=== PATIENT | male | born 1950 | race African-American/Black ===

== ENCOUNTER 2017-10-04 16:19 | Inpatient (IN) | payer MEDICARE ==
[~2017-10-04] VITALS: Ht 177.8 cm; Wt 70.9 kg
[~2017-10-04 16:19] MED LIST: ASPI325T PO; CIPR500T4 PO; HYDRA50 PO; NITR.4 SL; PROT40TA PO; SYMB160A INH; TAMS0.4C67 PO; TIOT18I INH
[2017-10-04 16:24] VITALS: BP 176/91; PULSE 105; RESP 14; TEMP 98.4; O2SAT 96
[2017-10-04] MEDS ORDERED: SODIUM CHLORIDE 0.9% FLUSH 10 ML FLUSH IVF PRN (17:45)
[2017-10-04 18:03] LABS: BASOPHIL % 0.7 % (0.0-2.0); EOSINOPHIL # 0.1 TH/MM3 (0-0.4); EOSINOPHIL % 1.8 % (0.0-4.0); HEMATOCRIT 31.2 % (39.0-51.0); HEMO FLAGS DIFF FINAL; LYMPH % 18.5 % (9.0-44.0); LYMPHOCYTE # 1.3 TH/MM3 (1.0-4.8); MEAN CELL VOLUME 88.2 FL (80.0-100.0); MEAN CORPUSCULAR HEMOGLOBIN 29.3 PG (27.0-34.0); MEAN CORPUSCULAR HGB CONC 33.2 % (32.0-36.0); MONO % 7.5 % (0.0-8.0); NEUT % 71.5 % (16.0-70.0); PLATELET COUNT 165 TH/MM3 (150-450); RED BLOOD COUNT 3.53 MIL/MM3 (4.50-5.90)
--- NOTE | 2017-10-04 18:05 | PD ---
HPI Chief Complaint: Abnormal Results Time Seen by Provider: 17:37 Travel History International Travel<30 days: No Contact w/Intl Traveler<30days: No Traveled to known affect area: No History of Present Illness HPI Patient is a 67-year-old male presents emergency department for evaluation of abnormal lab work. The patient states he has a routine checkup coming next week and had blood work drawn at the [facility] today, he states they couldn't get a hold of him so they sent the traffic control officer out to get him, the traffic control officer made mention that it could be his potassium that was off and they recommended he come to the emergency department. The patient has no complaints at this time , denies any chest pain shortness of breath abdominal pain nausea vomiting generalized weakness focalized weakness or fatigue. The patient thinks that it was his potassium that was off however he is unsure. He has no history of diabetes no history of kidney disorder. PFSH Past Medical History Atrial Fibrillation: Yes Autoimmune Disease: No Blood Disorders: No Anxiety: No Depression: No Cancer: No Cardiovascular Problems: Yes Diabetes: Yes Diminished Hearing: No Endocrine: No Gastrointestinal Disorders: Yes GERD: Yes Glaucoma: No Genitourinary: Yes ("PROSTATE PROBLEM") Hypertension: Yes Musculoskeletal: No Neurologic: No Psychiatric: No Respiratory: No Radiation Therapy: No Sickle Cell Disease: No Past Surgical History Other Surgery: Yes Social History Alcohol Use: No Tobacco Use: Yes (1 PPD FOR 30 YEARS) Substance Use: Yes (COCAINE daily ) Allergies-Medications (Allergen,Severity, Reaction): Coded Allergies: No Known Allergies (Verified Allergy, Unknown, 10/04/17) Reported Meds & Prescriptions Reported Meds & Active Scripts Active Reported [prostate med ] [Bp ] Review of Systems Except as stated in HPI: all other systems reviewed are Neg Physical Exam Narrative GENERAL: Well-developed well-nourished no obvious distress, quite pleasant. SKIN: Focused skin assessment warm/dry. HEAD: Atraumatic. Normocephalic. EYES: Pupils equal and round. No scleral icterus. No injection or drainage. ENT: No nasal bleeding or discharge. Mucous membranes pink and moist. NECK: Trachea midline. No JVD. CARDIOVASCULAR: Regular rate and rhythm. No murmur appreciated. 2+ bilateral equal pulses in all 4 extremity's. RESPIRATORY: No accessory muscle use. Clear to auscultation. Breath sounds equal bilaterally. GASTROINTESTINAL: Abdomen soft, non-tender, nondistended. Hepatic and splenic margins not palpable. MUSCULOSKELETAL: No obvious deformities. No clubbing. No cyanosis. No edema. NEUROLOGICAL: Awake and alert. No obvious cranial nerve deficits. Motor grossly within normal limits. Normal speech. PSYCHIATRIC: Appropriate mood and affect; insight and judgment normal. Data Data Last Documented VS Vital Signs Date Time Temp Pulse Resp B/P (MAP) Pulse Ox O2 Delivery O2 Flow Rate FiO2 10/04/17 21:47 73 17 173/87 (115) 100 Room Air 10/04/17 16:24 98.4 Orders Orders Electrocardiogram (10/04/17 17:36) Complete Blood Count With Diff (10/04/17 17:36) Comprehensive Metabolic Panel (10/04/17 17:36) Magnesium (Mg) (10/04/17 17:36) Prothrombin Time / Inr (Pt) (10/04/17 17:36) Act Partial Throm Time (Ptt) (10/04/17 17:36) Troponin I (10/04/17 17:36) Ecg Monitoring (10/04/17 17:36) Iv Access Insert/Monitor (10/04/17 17:36) Oximetry (10/04/17 17:36) Oxygen Administration (10/04/17 17:36) Sodium Chloride 0.9% Flush (Ns Flush) (10/04/17 17:45) Sodium Polysty Sulfate Liq (Kayexalate L (10/04/17 20:45) Insulin Human Regular Inj (Novolin R Inj (10/04/17 21:30) Dextrose 50% In Sacha (Syr) Inj (D50w (Syr (10/04/17 21:30) Admit Order (Ed Use Only) (10/04/17 22:43) Urinalysis - C+S If Indicated (10/04/17 22:42) Drug Screen, Random Urine (10/04/17 22:42) Calcium Gluconate Inj (Calcium Gluconate (10/04/17 22:45) Consult Nephrology (10/04/17 ) Admit To Inpatient (10/04/17 ) Vital Signs (Adult) Q4H (10/04/17 22:42) Activity Oob Ad Sarah (10/04/17 22:42) Extruder / Telemetry .CONTINUOUS (10/04/17 22:42) Intake + Output CAYDEN.QSHIFT (10/04/17 22:42) Diet Regular Basic (10/05/17 Breakfast) Sodium Chlor 0.9% 1000 Ml Inj (Ns 1000 M (10/04/17 22:42) Sodium Chloride 0.9% Flush (Ns Flush) (10/04/17 22:45) Sodium Chloride 0.9% Flush (Ns Flush) (10/05/17 09:00) Ondansetron Inj (Zofran Inj) (10/04/17 22:45) Comprehensive Metabolic Panel (10/05/17 06:00) Complete Blood Count With Diff (10/05/17 06:00) Troponin I (10/05/17 06:00) Heparin Inj (Heparin Inj) (10/05/17 09:00) Acetaminophen (Tylenol) (10/04/17 22:45) Acetamin-Hydrocod 325-5 Mg (Garrison 5-325 (10/04/17 22:45) Morphine Inj (Morphine Inj) (10/04/17 22:45) Docusate Sodium-Senna (Mary Beth-Colace) (10/05/17 09:00) Magnesium Hydroxide Liq (Milk Of Magnesi (10/04/17 22:45) Sennosides (Senokot) (10/04/17 22:45) Bisacodyl Supp (Dulcolax Supp) (10/04/17 22:45) Lactulose Liq (Lactulose Liq) (10/04/17 22:45) Inpatient Certification (10/04/17 ) Labs Laboratory Tests Test 10/04/17 17:30 10/04/17 19:00 White Blood Count 7.0 TH/MM3 Red Blood Count 3.53 MIL/MM3 Hemoglobin 10.3 GM/DL Hematocrit 31.2 % Mean Corpuscular Volume 88.2 FL Mean Corpuscular Hemoglobin 29.3 PG Mean Corpuscular Hemoglobin Concent 33.2 % Red Cell Distribution Width 16.0 % Platelet Count 165 TH/MM3 Mean Platelet Volume 9.0 FL Neutrophils (%) (Auto) 71.5 % Lymphocytes (%) (Auto) 18.5 % Monocytes (%) (Auto) 7.5 % Eosinophils (%) (Auto) 1.8 % Basophils (%) (Auto) 0.7 % Neutrophils # (Auto) 5.0 TH/MM3 Lymphocytes # (Auto) 1.3 TH/MM3 Monocytes # (Auto) 0.5 TH/MM3 Eosinophils # (Auto) 0.1 TH/MM3 Basophils # (Auto) 0.0 TH/MM3 CBC Comment DIFF FINAL Differential Comment Prothrombin Time 11.4 SEC Prothromb Time International Ratio 1.1 RATIO Activated Partial Thromboplast Time 28.6 SEC Blood Urea Nitrogen 45 MG/DL Creatinine 4.05 MG/DL Random Glucose 133 MG/DL Total Protein 6.9 GM/DL Albumin 3.2 GM/DL Calcium Level 8.2 MG/DL Magnesium Level 1.8 MG/DL Alkaline Phosphatase 76 U/L Aspartate Amino Transf (AST/SGOT) 29 U/L Alanine Aminotransferase (ALT/SGPT) 40 U/L Total Bilirubin 0.4 MG/DL Sodium Level 140 MEQ/L Potassium Level 6.3 MEQ/L Chloride Level 114 MEQ/L Carbon Dioxide Level 19.1 MEQ/L Anion Gap 7 MEQ/L Estimat Glomerular Filtration Rate 18 ML/MIN Troponin I 0.09 NG/ML [facility] Medical Decision Making Medical Screen Exam Complete: Yes Emergency Medical Condition: Yes Differential Diagnosis Hyperkalemia, acute kidney injury, electro-light abnormality, ACS unlikely, AMI unlikely. Narrative Course Patient roomed in emergency department, appears well and has no physical complaints, labs ordered, initial sample hemolyzed, discussed with Dr. Hu at 1930 at the end of my shift who will assume care and disposition the patient properly based on chemistries. Condition: Stable Jose D Brown MD Oct 04, 2017 18:05
[2017-10-04 18:08] LABS: APTT (PATIENT) 28.6 SEC (24.3-30.1); INTERNATIONAL NORMALIZED RATIO 1.1 RATIO; PROTHROMBIN TIME - PATIENT 11.4 SEC (9.8-11.6)
[2017-10-04] MEDS ORDERED: BP (18:43)
[2017-10-04] MEDS ORDERED: prostate med (18:43)
[2017-10-04 19:00] VITALS: BP 152/83; PULSE 72; RESP 22; O2SAT 98
[2017-10-04 19:46] LABS: ANION GAP 7 MEQ/L (5-15); AST (GOT) 29 U/L (15-37); BICARBONATE 19.1 MEQ/L (21.0-32.0); BLOOD UREA NITROGEN 45 MG/DL (7-18); CHLORIDE 114 MEQ/L (98-107); GLOMERULAR FILTRATION RATE 18 ML/MIN (>89); MAGNESIUM 1.8 MG/DL (1.5-2.5); SODIUM (NA) 140 MEQ/L (136-145)
[2017-10-04 19:47] LABS: ALT (GPT) 40 U/L (12-78)
[2017-10-04 19:50] LABS: POTASSIUM 6.3 MEQ/L (3.5-5.1)
[2017-10-04 19:51] LABS: ALKALINE PHOSPHATASE 76 U/L (45-117); TOTAL BILIRUBIN ADULT 0.4 MG/DL (0.2-1.0)
[2017-10-04] MEDS ORDERED: SODIUM POLYSTYRENE SULFONATE SUSP 15 GM/60 ML CUP PO ONE (20:45)
--- NOTE | 2017-10-04 21:25 | EKG ---
Date Performed: 10/04/2017 Time Performed: 18:40:07 PTAGE: 67 years EKG: Sinus rhythm INDETERMINATE AXIS LOW QRS VOLTAGE IN EXTREMITY LEADS POOR R WAVE PROGRESSION NONSPECIFIC INTRAVENTR ICULAR CONDUCTION DELAY ABNORMAL ECG PREVIOUS TRACING : 07/30/2015 05.50 No significant change from previous tracing noted. DOCTOR: Aroldo Gonzalez Interpretating Date/Time 10/04/2017 21:24:22
[2017-10-04] MEDS ORDERED: INSULIN HUMAN REGULAR 1,000 UNITS/10 ML VIAL IV PUSH ONE (21:30)
[2017-10-04] MEDS ORDERED: DEXTROSE 50% IN WATER 50 ML SYRINGE IV PUSH ONE (21:30)
[2017-10-04 21:47] VITALS: BP 173/87; PULSE 73; RESP 17; O2SAT 100
[2017-10-04] MEDS ORDERED: SODIUM CHLORIDE 0.9% FLUSH 10 ML FLUSH IV FLUSH PRN (22:45)
[2017-10-04] MEDS ORDERED: MAGNESIUM HYDROXIDE SUSP 30 ML CUP PO PRN (22:45)
[2017-10-04] MEDS ORDERED: SENNOSIDES 8.6 MG TAB PO PRN (22:45)
[2017-10-04] MEDS ORDERED: BISACODYL 10 MG SUPP RECTAL PRN (22:45)
[2017-10-04] MEDS ORDERED: CALCIUM GLUCONATE 10% 1 GM/10 ML VIAL IV PUSH ONE (22:45)
[2017-10-04] MEDS ORDERED: ONDANSETRON HCL 4 MG/2 ML VIAL IVP PRN (22:45)
[2017-10-04] MEDS ORDERED: ACETAMINOPHEN/HYDROcodone 325 MG/5 MG TAB PO PRN (22:45)
[2017-10-04] MEDS ORDERED: LACTULOSE SYRUP 20 GM/30 ML CUP PO PRN (22:45)
[2017-10-04] MEDS ORDERED: MORPHINE SULFATE 4 MG/ML INJ IV PUSH PRN (22:45)
[2017-10-04] MEDS ORDERED: ACETAMINOPHEN 325 MG TAB PO PRN (22:45)
--- NOTE | 2017-10-04 22:46 | HHI.HP ---
[facility] Admission Diagnosis hyperkalemia Diagnoses: (1) CRISTINA (acute kidney injury) Diagnosis: Principal (2) Hyperkalemia Diagnosis: Principal (3) Elevated troponin Diagnosis: Principal (4) HTN (hypertension) Diagnosis: Principal (5) Cocaine abuse Diagnosis: Principal (6) Tobacco abuse Diagnosis: Principal Travel History International Travel<30 Days: No Contact w/Intl Traveler <30 Da: No Traveled to Known Affected Are: No History of Present Illness This is a 67-year-old male with a PMH of HTN, CKD, Tobacco Abuse and Cocaine Abuse who was sent to the ER from the [facility] secondary to abnormal lab work. Pt states he had routine lab work done at the [facility] today and was informed he needed to come to the ER for elevated K+. Pt without complaints at this time. Denies fever, chills, nausea, vomiting, diarrhea or chest pain. On arrival, BP 152/83 , HR 72, O2 sat 98% on RA, Afebrile. CBC is essentially unremarkable. Creatinine 4.05, previously 1.92 on 07/30/15. K+ 6.3. S/p Insulin/D50/ Kayexalate in ER. Trop 0.09. CXR w/ minimal bibasilar subsegmental atelectasis. Review of Systems Except as stated in HPI: all other systems reviewed are Neg ROS: 14 point review of systems otherwise negative. Past Family Social History Past Medical History PMH: HTN, CKD, Tobacco Abuse and Cocaine Abuse Past Surgical History PAST SURGICAL HISTORY: Left Leg Surgery Allergies: Coded Allergies: No Known Allergies (Verified Allergy, Unknown, 10/04/17) Family History PAST FAMILY HISTORY: Reviewed. No h/o DM or CAD Social History PAST SOCIAL HISTORY: Negative for alcohol. Smokes 1ppd. Cocaine daily. Physical Exam Vital Signs Vital Signs Date Time Temp Pulse Resp B/P (MAP) Pulse Ox O2 Delivery O2 Flow Rate FiO2 10/04/17 21:47 73 17 173/87 (115) 100 Room Air 10/04/17 19:00 72 22 152/83 (106) 98 Room Air 10/04/17 18:42 (119) Room Air 10/04/17 18:41 97 Room Air 10/04/17 16:24 98.4 105 14 176/91 (119) 96 Physical Exam PE: GENERAL: Middle-aged black male in no acute distress. HEENT: PERRLA, EOMI. No scleral icterus or conjunctival pallor. No lid lag or facial droop. CARDIOVASCULAR: Regular rate and rhythm. No obvious murmurs to auscultation. No chest tenderness to palpation. RESPIRATORY: No obvious rhonchi or wheezing. Clear to auscultation. Breath sounds equal bilaterally. GASTROINTESTINAL: Abdomen soft, non-tender, nondistended. BS normal. MUSCULOSKELETAL: Extremities without clubbing, cyanosis, or edema. No obvious deformities. NEUROLOGICAL: Awake, alert and oriented x4. No focal neurologic deficits. Moving both upper and lower extremities spontaneously. Laboratory Laboratory Tests Test 10/04/17 17:30 10/04/17 19:00 White Blood Count 7.0 Red Blood Count 3.53 Hemoglobin 10.3 Hematocrit 31.2 Mean Corpuscular Volume 88.2 Mean Corpuscular Hemoglobin 29.3 Mean Corpuscular Hemoglobin Concent 33.2 Red Cell Distribution Width 16.0 Platelet Count 165 Mean Platelet Volume 9.0 Neutrophils (%) (Auto) 71.5 Lymphocytes (%) (Auto) 18.5 Monocytes (%) (Auto) 7.5 Eosinophils (%) (Auto) 1.8 Basophils (%) (Auto) 0.7 Neutrophils # (Auto) 5.0 Lymphocytes # (Auto) 1.3 Monocytes # (Auto) 0.5 Eosinophils # (Auto) 0.1 Basophils # (Auto) 0.0 CBC Comment DIFF FINAL Differential Comment Prothrombin Time 11.4 Prothromb Time International Ratio 1.1 Activated Partial Thromboplast Time 28.6 Blood Urea Nitrogen 45 Creatinine 4.05 Random Glucose 133 Total Protein 6.9 Albumin 3.2 Calcium Level 8.2 Magnesium Level 1.8 Alkaline Phosphatase 76 Aspartate Amino Transf (AST/SGOT) 29 Alanine Aminotransferase (ALT/SGPT) 40 Total Bilirubin 0.4 Sodium Level 140 Potassium Level 6.3 Chloride Level 114 Carbon Dioxide Level 19.1 Anion Gap 7 Estimat Glomerular Filtration Rate 18 Troponin I 0.09 Result Diagram: 10/04/17 1730 10/04/17 1900 Caprini VTE Risk Assessment Caprini VTE Risk Assessment: Mod/High Risk (score >= 2) Caprini Risk Assessment Model Point Value = 1 Point Value = 2 Point Value = 3 Point Value = 5 Age 41-60 Minor surgery BMI > 25 kg/m2 Swollen legs Varicose veins or History of unexplained or recurrent spontaneous Oral contraceptives or hormone replacement Sepsis (< 1 month) Serious lung disease, including pneumonia (< 1 month) Abnormal pulmonary function Acute myocardial infarction Congestive heart failure (< 1 month) History of inflammatory bowel disease Medical patient at bed rest Age 61-74 Arthroscopic surgery Major open surgery (> 45 min) Laparoscopic surgery (> 45 min) Malignancy Confined to bed (> 72 hours) Immobilizing plaster cast Central venous access Age >= 75 History of VTE Family history of VTE Factor V Leiden Prothrombin [id number] Lupus anticoagulant Anticardiolipin antibodies Elevated serum homocysteine Heparin-induced thrombocytopenia Other congenital or acquired thrombophilia Stroke (< 1 month) Elective arthroplasty Hip, pelvis, or leg fracture Acute spinal cord injury (< 1 month) Prophylaxis Regimen Total Risk Factor Score Risk Level Prophylaxis Regimen 0-1 Low Early ambulation 2 Moderate Order ONE of the following: *Sequential Compression Device (SCD) *Heparin 5000 units SQ BID 3-4 Higher Order ONE of the following medications: *Heparin 5000 units SQ TID *Enoxaparin/Lovenox 40 mg SQ daily (WT < 150 kg, CrCl > 30 mL/min) *Enoxaparin/Lovenox 30 mg SQ daily (WT < 150 kg, CrCl > 10-29 mL/min) *Enoxaparin/Lovenox 30 mg SQ BID (WT < 150 kg, CrCl > 30 mL/min) AND/OR *Sequential Compression Device (SCD) 5 or more Highest Order ONE of the following medications: *Heparin 5000 units SQ TID (Preferred with Epidurals) *Enoxaparin/Lovenox 40 mg SQ daily (WT < 150 kg, CrCl > 30 mL/min) *Enoxaparin/Lovenox 30 mg SQ daily (WT < 150 kg, CrCl > 10-29 mL/min) *Enoxaparin/Lovenox 30 mg SQ BID (WT < 150 kg, CrCl > 30 mL/min) AND *Sequential Compression Device (SCD) Assessment and Plan Problem List: (1) CRISTINA (acute kidney injury) ICD Code: N17.9 - Acute kidney failure, unspecified (2) Hyperkalemia ICD Code: E87.5 - Hyperkalemia (3) Elevated troponin ICD Code: R74.8 - Abnormal levels of other serum enzymes (4) HTN (hypertension) ICD Code: I10 - Essential (primary) hypertension (5) Cocaine abuse ICD Code: F14.10 - Cocaine abuse, uncomplicated (6) Tobacco abuse ICD Code: Z72.0 - Tobacco use Assessment and Plan A/P: 1. CRISTINA: Acute on Chronic. Creatinine 4.05, previously 1.92 on 07/30/15, likely related to cocaine abuse/uncontrolled HTN. IVF for hydration, check U/a , Urine Drug Screen, repeat labs in am, Check Renal US, Consult Nephrology for further recommendations. 2. Hyperkalemia: Acute. K+ 6.3. No EKG changes. S/p Insulin/D50/Kayexalate in ER, add Calcium. Repeat K+. Telemetry. 3. Elevated Trop: Trop 0.09, no c/o chest pain/SOB. ASA, Statin, hold B- marycarmen, check serial cardiac enzymes for trend. Cardiology consult as needed. 4. HTN: Uncontrolled. BP 150-170's while in ER, start antihypertensives, monitor BP. 5. Tobacco Abuse: Pt counselled. Ativan prn if needed, no NicoDerm to avoid vasoconstriction. 6. Cocaine Abuse: Ongoing. Pt counselled. Ativan/Morphine prn. 7. DVT Prophylaxis: Heparin 8. Social work for d/c planning as needed. 9. Case discussed w/ ER physician at length. Physician Certification 2 Midnight Certification Type: Admission for Inpatient Services Order for Inpatient Services The services are ordered in accordance with Medicare regulations or non- Medicare payer requirements, as applicable. In the case of services not specified as inpatient-only, they are appropriately provided as inpatient services in accordance with the 2-midnight benchmark. Estimated LOS (days): 2 days is the estimated time the patient will need to remain in the hospital, assuming treatment plan goals are met and no additional complications. Post-Hospital Plan: Not yet determined Darlene Wagner MD Oct 04, 2017 22:46
[2017-10-04] MEDS ORDERED: SODIUM CHLOR 0.9% 1000 ML INJ 1,000 ML IV ONE (23:00)
[2017-10-04] MEDS: SODIUM CHLOR 0.9% 1000 ML INJ 1,000 ML IV SCH (23:58)
[2017-10-05] VITALS (10 sets, daily range): BP systolic 126–180; BP diastolic 69–88; PULSE 62–89; RESP 18–20; TEMP 96.9–99; O2SAT 96–99
[2017-10-05] MEDS ORDERED: DEXTROSE 50% IN WATER 50 ML SYRINGE IV PUSH ONE
[2017-10-05] MEDS: NIFEdipine 30 MG SUSTAINED RELEASE TAB PO SCH ×3 (03:07→20:25)
[2017-10-05] MEDS: SODIUM CHLORIDE 0.9% FLUSH 10 ML FLUSH IV FLUSH SCH ×2 (08:57→20:25)
[2017-10-05] MEDS: DOCUSATE SODIUM 50 MG/SENNA 8.6 MG TAB PO SCH ×2 (08:57→20:24)
[2017-10-05] MEDS: HEPARIN SODIUM - SQ 10,000 UNITS/ML VIAL SQ SCH ×2 (08:58→20:26)
[2017-10-05] MEDS ORDERED: NIFEdipine 30 MG SUSTAINED RELEASE TAB PO SCH (09:00)
--- NOTE | 2017-10-05 09:03 | RADRPT ---
EXAM DATE/TIME: 10/05/2017 07:51 [facility] COMPARISON: US KIDNEY/RENAL/BLADDER, December 21, 2014, 17:00. INDICATIONS : Increased BUN/Creatnine. MEDICAL HISTORY : Hypertension. Gastroesophageal reflux disease. Glasses. Atrial fibrillation. Prostate problems. SURGICAL HISTORY : Left leg surgery. ENCOUNTER: Subsequent ACUITY: 1 day PAIN SCORE: 2/10 LOCATION: Bilateral flank MEASUREMENTS: RIGHT KIDNEY: 8.9 x 4.1 x 4.8 cm LEFT KIDNEY: 9.3 x 4.0 x 5.1 cm FINDINGS: Severe hydronephrosis is again noted bilaterally. The kidneys demonstrate increased echogenicity sugg esting medical renal disease. No focal solid renal mass or stone is noted. The urinary bladder is dis tended and demonstrates wall thickening and trabeculation as well as multiple diverticula. Debris is noted within the bladder. Bilateral pleural effusions are noted. CONCLUSION: 1. Severe bilateral hydronephrosis. 2. Distended, thick-walled, trabeculated urinary bladder with multiple diverticula and debris. 3. Bilateral pleural effusions. 4. Echogenic kidneys suggesting medical renal disease. Jose D Parmar MD on October 05, 2017 at 8:57 Board Certified Radiologist. This report was verified electronically.
[2017-10-05 11:07] LABS: AUTOMATED NEUTROPHIL # 5.1 TH/MM3 (1.8-7.7); BASOPHIL % 0.4 % (0.0-2.0); EOSINOPHIL # 0.3 TH/MM3 (0-0.4); EOSINOPHIL % 3.5 % (0.0-4.0); HEMATOCRIT 31.5 % (39.0-51.0); HEMO FLAGS DIFF FINAL; LYMPH % 17.3 % (9.0-44.0); LYMPHOCYTE # 1.3 TH/MM3 (1.0-4.8); MEAN CELL VOLUME 87.8 FL (80.0-100.0); MEAN CORPUSCULAR HEMOGLOBIN 28.8 PG (27.0-34.0); MEAN CORPUSCULAR HGB CONC 32.8 % (32.0-36.0); MONO % 8.4 % (0.0-8.0); NEUT % 70.4 % (16.0-70.0); PLATELET COUNT 163 TH/MM3 (150-450); RED BLOOD COUNT 3.59 MIL/MM3 (4.50-5.90); RED CELL DISTRIBUTION WIDTH 16.2 % (11.6-17.2); WHITE BLOOD COUNT 7.3 TH/MM3 (4.0-11.0)
[2017-10-05 11:35] LABS: ALKALINE PHOSPHATASE 96 U/L (45-117); ALT (GPT) 44 U/L (12-78); ANION GAP 4 MEQ/L (5-15); AST (GOT) 30 U/L (15-37); BLOOD UREA NITROGEN 44 MG/DL (7-18); CHLORIDE 116 MEQ/L (98-107); GLOMERULAR FILTRATION RATE 19 ML/MIN (>89); POTASSIUM 5.2 MEQ/L (3.5-5.1); SODIUM (NA) 142 MEQ/L (136-145); TOTAL BILIRUBIN ADULT 0.2 MG/DL (0.2-1.0)
--- NOTE | 2017-10-05 13:40 | MB ---
cc: CHRISTIANO MONZON MD DATE OF CONSULTATION: 10/05/2017. REASON FOR CONSULTATION: Chronic kidney disease and hyperkalemia. HISTORY OF PRESENT ILLNESS: This is a very pleasant 67-year-old male with past medical history of hypertension and chronic kidney disease [facility] was called [facility] to go to the hospital because of hypertension. I was called to see the patient because of hyperkalemia and elevated creatinine. The patient has a known history of chronic kidney disease and his creatinine was 1.8 to 1.9 in July of 2015. At that time also he had acute kidney injury. The patient was seen by nephrology in the [place] in [place] and according to the patient he was told that he has significant renal disease. He was seen by urology in December of 2014 for bladder outlet obstruction. The patient denies any nausea or vomiting. He has mild shortness of breath on exertion. There is no history of diarrhea. He is not taking any nonsteroidal anti-inflammatory drugs. No dysuria, hematuria or difficulty passing urine. PAST MEDICAL HISTORY: 1. Hypertension. 2. Chronic kidney disease. PAST SURGICAL HISTORY: Left leg surgery. REVIEW OF SYSTEMS: There is no history of fever. No sore throat. No headache, dizziness or blurring of vision. He has shortness of breath on exertion. There is no chest pain, mild cough. No nausea or vomiting. No abdominal pain. No history of diarrhea. Appetite is normal. No dysuria, hematuria or difficulty passing. Not taking any nonsteroidal anti-inflammatory drugs. SOCIAL HISTORY: The patient is single, lives with her friend and has not been drinking alcohol every day but has smoked one pack per day and occasionally takes cocaine. FAMILY HISTORY: Family history was positive for renal disease from the mother's side. Her aunt was on dialysis, her mother's sister. ALLERGIES: NO KNOWN DRUG ALLERGIES. MEDICATIONS: Currently he is on: 1. Normal saline at 100 an hour. 2. Nifedipine 30 mL once a day. 3. Mary Beth-Colace one tablet twice a day. 4. Heparin subcutaneous. 5. [place] as needed. PHYSICAL EXAMINATION: GENERAL: On examination, the patient is awake and alert and he is not in acute distress. VITAL SIGNS: His last blood pressure was 161/79, temperature 98.3, oxygen saturation is 98% to 99%. HEAD, EYES, EARS, NOSE, THROAT: The pupils are equal. Nonicteric sclerae. Conjunctivae are normal. NECK: The neck is supple. JVD is not elevated. LUNGS: The patient has bilateral good air entry with occasional wheezing. HEART: S1 and S2 regular rhythm. ABDOMEN: Abdomen soft and lax. There is no tenderness. Bowel sounds positive. EXTREMITIES: There is no pedal edema. INVESTIGATIONS: White blood cell count is 7.3, hemoglobin 10.3, platelet count 163,000. Neutrophils 70.4. Sodium 142, potassium 5.2, chloride 116, bicarbonate 22, BUN 44, creatinine 3.7. AST 30, ALT 44. Troponin I is 0.1. Albumin is 3.1. INR is 1.1. Urinalysis showing protein of 30 and this was done in July of 2015. At that time he also had KARSON positive. RADIOLOGICAL STUDIES: The patient had an ultrasound of the kidneys done this morning which shows right kidney imaged at 0.9 and the left kidney at 9.3. Severe bilateral hydronephrosis. Distended urinary bladder. Bilateral pleural effusions. ASSESSMENT AND PLAN: 1. Chronic kidney disease with acute kidney injury 2. Hyperkalemia. 3. Hypertension. 4. Mild anemia. The patient has very high BUN and creatinine and has smaller kidney and does not have too much proteinuria. 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 Now there is a acute worsening which could be related to either prerenal or the possibility of bladder neck obstruction and bilateral hydronephrosis. 1. I will ask for the urology consultation. 2. Get the Johnson catheter. 3. Send serology again as he has a history of KARSON positive. The potassium is better. There is no acute urgent need for dialysis expecting more improvement in the renal function in the next few days. I will also check the phosphorus and CPK. Thank you for the consultation and I will follow the patient while he is in the hospital. MD PRISCILA Duffy/JENAE /12:14 PM /1:29 PM
--- NOTE | 2017-10-05 13:56 | HHI.PR ---
Subjective Remarks Patient reports he is feeling okay. No shortness of breath or chest pain. Objective Vitals Vital Signs Date Time Temp Pulse Resp B/P (MAP) Pulse Ox O2 Delivery O2 Flow Rate FiO2 10/05/17 08:00 98.3 78 18 161/79 (106) 99 10/05/17 08:00 98.1 75 18 162/77 (105) 96 10/05/17 04:00 62 10/05/17 04:00 98.2 63 20 172/88 (116) 98 10/05/17 02:17 76 10/05/17 00:30 96.9 71 20 180/88 (118) 97 10/05/17 00:13 10/05/17 00:03 71 18 165/77 (106) 98 Room Air 10/04/17 21:47 73 17 173/87 (115) 100 Room Air 10/04/17 19:00 72 22 152/83 (106) 98 Room Air 10/04/17 18:42 (119) Room Air 10/04/17 18:41 97 Room Air 10/04/17 16:24 98.4 105 14 176/91 (119) 96 I/O 10/04/17 10/04/17 10/04/17 10/05/17 10/05/17 10/05/17 07:00 15:00 23:00 07:00 15:00 23:00 Intake Total 1118 ml Output Total 125 ml Balance 993 ml Intake Oral 120 ml IV Total 998 ml Output Urine Total 125 ml # Bowel Movements 0 Result Diagram: 10/05/17 1018 10/05/17 1018 Objective Remarks GENERAL: This is a well-nourished, well-developed patient, in no apparent distress. CARDIOVASCULAR: Normal rate and regular rhythm without murmurs, gallops, or rubs. RESPIRATORY: Good respiratory efforts. Breath sounds equal and clear to auscultation bilaterally. GASTROINTESTINAL: Abdomen soft, non-tender, non-distended. Normal active bowel sounds MUSCULOSKELETAL: Extremities without cyanosis, or edema. NEURO: Alert & Oriented x4 to person, place, time, situation. Moves all ext x4 PSYCH: Appropriate mood and affect. A/P Problem List: (1) CRISTINA (acute kidney injury) ICD Code: N17.9 - Acute kidney failure, unspecified (2) Hyperkalemia ICD Code: E87.5 - Hyperkalemia (3) Elevated troponin ICD Code: R74.8 - Abnormal levels of other serum enzymes (4) HTN (hypertension) ICD Code: I10 - Essential (primary) hypertension (5) Cocaine abuse ICD Code: F14.10 - Cocaine abuse, uncomplicated (6) Tobacco abuse ICD Code: Z72.0 - Tobacco use Assessment and Plan 67-year-old male with: 1. CRISTINA: Acute on Chronic. Creatinine 4.05 on presentation, previously 1.92 on 07/30/15, likely related to cocaine abuse/uncontrolled hypertension -Appreciate nephrology following. Continue to monitor closely. Slightly improved today. 2. Hyperkalemia: Acute. K+ 6.3. Improving. Down to 5.2. No EKG changes. S /p Insulin/D50/Kayexalate in ER, add Calcium. Repeat K+. Telemetry. 3. Elevated Trop: Troponin flat.. ASA, Statin. 4. HTN: Uncontrolled. Patient started on Procardia. 5. Tobacco Abuse: Pt counselled. Ativan prn if needed, no NicoDerm to avoid vasoconstriction. 6. Cocaine Abuse: Ongoing. Pt counselled. Ativan/Morphine prn. 7. DVT Prophylaxis: Heparin Imelda Meraz MD Oct 05, 2017 13:56
[2017-10-05 16:27] LABS: BLOOD, URINE NEG (NEG); COMMENT (UR) CULT NOT INDICATED; CULTURE IF INDICATED CULT NOT INDICATED; GLUCOSE,URINE NEG (NEG); KETONE, URINE NEG (NEG); NITRITE,URINE NEG (NEG); SQUAMOUS EPITHELIAL CELL URINE <1 /hpf (0-5); URINE COLOR LIGHT-YELLOW (YELLW/STRAW)
[2017-10-05] MEDS: TAMSULOSIN HCL 0.4 MG CAP PO SCH (16:32)
[2017-10-05] MEDS: SODIUM CHLOR 0.9% 1000 ML INJ 1,000 ML IV SCH (20:25)
[2017-10-06] VITALS: BP 152/70; PULSE 82; RESP 18; TEMP 98.9; O2SAT 94
[2017-10-06 03:49] VITALS: PULSE 81
[2017-10-06 04:00] VITALS: BP 152/75; PULSE 86; RESP 18; TEMP 98.4; O2SAT 96
[2017-10-06] MEDS: SODIUM CHLOR 0.9% 1000 ML INJ 1,000 ML IV SCH (05:54)
[2017-10-06 08:00] VITALS: PULSE 76
[2017-10-06] MEDS: TAMSULOSIN HCL 0.4 MG CAP PO SCH (09:01)
[2017-10-06] MEDS: NIFEdipine 30 MG SUSTAINED RELEASE TAB PO SCH (09:01)
[2017-10-06] MEDS: HEPARIN SODIUM - SQ 10,000 UNITS/ML VIAL SQ SCH (09:01)
[2017-10-06] MEDS: DOCUSATE SODIUM 50 MG/SENNA 8.6 MG TAB PO SCH (09:01)
[2017-10-06] MEDS: SODIUM CHLORIDE 0.9% FLUSH 10 ML FLUSH IV FLUSH SCH (09:02)
[2017-10-06 09:07] VITALS: BP 164/106; PULSE 73; RESP 20; TEMP 97.3; O2SAT 96
[2017-10-06 09:31] LABS: HEMATOCRIT 30.6 % (39.0-51.0); MEAN CELL VOLUME 87.3 FL (80.0-100.0); MEAN CORPUSCULAR HEMOGLOBIN 28.2 PG (27.0-34.0); MEAN CORPUSCULAR HGB CONC 32.3 % (32.0-36.0); PLATELET COUNT 155 TH/MM3 (150-450); RED BLOOD COUNT 3.51 MIL/MM3 (4.50-5.90); RED CELL DISTRIBUTION WIDTH 16.1 % (11.6-17.2); REVIEW FLAG FINAL; WHITE BLOOD COUNT 6.4 TH/MM3 (4.0-11.0)
[2017-10-06 09:53] LABS: BICARBONATE 16.9 MEQ/L (21.0-32.0); POTASSIUM 4.9 MEQ/L (3.5-5.1)
--- NOTE | 2017-10-06 09:55 | PD.CONS ---
[facility] Service Urology Consult Requested By Dr. Gimenez Primary Care Physician [facility] Diagnosis: (1) CRISTINA (acute kidney injury) ICD Code: N17.9 - Acute kidney failure, unspecified (2) Hyperkalemia ICD Code: E87.5 - Hyperkalemia (3) Elevated troponin ICD Code: R74.8 - Abnormal levels of other serum enzymes (4) HTN (hypertension) ICD Code: I10 - Essential (primary) hypertension (5) Cocaine abuse ICD Code: F14.10 - Cocaine abuse, uncomplicated (6) Tobacco abuse ICD Code: Z72.0 - Tobacco use History of Present Illness 67-year-old gentleman who was recently admitted for abnormal blood work. Patient is treated over at the [facility] and his physicians include a urologist. Patient was noted to have elevation the serum potassium as well as creatinine elevation of 4.05. The serum creatinine was previously 1.92 back in July 2015. Imaging studies included a renal ultrasound that demonstrated severe bilateral hydronephrosis, a distended, thickened urinary bladder with multiple diverticula and trabeculations as well as echogenic kidneys consistent with medical renal disease. A Johnson catheter was subsequently placed and the patient has had a significant amount of urine output and some improvement in his serum creatinine. A urology consult was placed for further recommendations. Interestingly, the patient denied any symptoms of flank pain or suprapubic pain. Patient denied fevers or shaking chills. He denies gross hematuria. Review of Systems Constitutional: DENIES: Fever, Chills Cardiovascular: DENIES: Chest pain Gastrointestinal: DENIES: Abdominal pain Genitourinary: DENIES: Hematuria, Dysuria Musculoskeletal: DENIES: Back pain Except as stated in HPI: all other systems reviewed are Neg Past Family Social History Past Medical History Chronic kidney disease Hypertension Past Surgical History Status post surgery to the left lower extremity Reported Medications Refer to EMR Allergies: Coded Allergies: No Known Allergies (Verified Allergy, Unknown, 10/04/17) Active Ordered Medications Refer to EMR Family History Reviewed and noncontributory Social History Smoker one pack per day Denies alcohol usage Uses cocaine on a daily basis Physical Exam Vital Signs Date Time Temp Pulse Resp B/P (MAP) Pulse Ox O2 Delivery O2 Flow Rate FiO2 10/06/17 09:07 97.3 73 20 164/106 (125) 96 10/06/17 04:00 98.4 86 18 152/75 (100) 96 10/06/17 03:49 81 10/06/17 00:00 98.9 82 18 152/70 (97) 94 10/05/17 23:40 81 10/05/17 20:00 99.0 89 18 136/69 (91) 96 10/05/17 19:54 87 10/05/17 16:00 97.8 81 18 126/77 (93) 99 10/05/17 12:00 97.8 81 18 162/77 (105) 96 Physical Exam GENERAL: This is a well-nourished, well-developed patient, in no apparent distress. SKIN: No rashes, ecchymoses or lesions. Cool and dry. HEAD: Atraumatic. Normocephalic. No temporal or scalp tenderness. EYES: Pupils equal round and reactive. Extraocular motions intact. No scleral icterus. No injection or drainage. ENT: Nose without bleeding, purulent drainage or septal hematoma. Throat without erythema, tonsillar hypertrophy or exudate. Uvula midline. Airway patent. NECK: Trachea midline. No JVD or lymphadenopathy. Supple, nontender, no meningeal signs. GASTROINTESTINAL: Abdomen soft, non-tender, nondistended. No hepato-splenomegaly , or palpable masses. No guarding. GENITOURINARY: No CVA tenderness, Johnson catheter in place draining clear yellow urine. MUSCULOSKELETAL: Extremities without clubbing, cyanosis, or edema. No joint tenderness, effusion, or edema noted. No calf tenderness. Negative Homans sign bilaterally. NEUROLOGICAL: Awake and alert. Cranial nerves II through XII intact. Motor and sensory grossly within normal limits. Five out of 5 muscle strength in all muscle groups. Normal speech. Lab results reviewed: Yes Laboratory Tests Test 10/05/17 10:18 10/05/17 16:00 10/06/17 07:11 White Blood Count 7.3 6.4 Red Blood Count 3.59 3.51 Hemoglobin 10.3 9.9 Hematocrit 31.5 30.6 Mean Corpuscular Volume 87.8 87.3 Mean Corpuscular Hemoglobin 28.8 28.2 Mean Corpuscular Hemoglobin Concent 32.8 32.3 Red Cell Distribution Width 16.2 16.1 Platelet Count 163 155 Mean Platelet Volume 8.9 8.9 Neutrophils (%) (Auto) 70.4 Lymphocytes (%) (Auto) 17.3 Monocytes (%) (Auto) 8.4 Eosinophils (%) (Auto) 3.5 Basophils (%) (Auto) 0.4 Neutrophils # (Auto) 5.1 Lymphocytes # (Auto) 1.3 Monocytes # (Auto) 0.6 Eosinophils # (Auto) 0.3 Basophils # (Auto) 0.0 CBC Comment DIFF FINAL Differential Comment Blood Urea Nitrogen 44 41 Creatinine 3.76 3.74 Random Glucose 129 86 Total Protein 6.7 Albumin 3.1 Calcium Level 8.0 7.8 Alkaline Phosphatase 96 Aspartate Amino Transf (AST/SGOT) 30 Alanine Aminotransferase (ALT/SGPT) 44 Total Bilirubin 0.2 Sodium Level 142 145 Potassium Level 5.2 4.9 Chloride Level 116 118 Carbon Dioxide Level 22.0 16.9 Anion Gap 4 10 Estimat Glomerular Filtration Rate 19 20 Troponin I 0.10 Urine Color LIGHT-YELLOW Urine Turbidity CLEAR Urine pH 6.0 Urine Specific Challenge 1.011 Urine Protein TRACE Urine Glucose (UA) NEG Urine Ketones NEG Urine Occult Blood NEG Urine Nitrite NEG Urine Bilirubin NEG Urine Urobilinogen LESS THAN 2.0 Urine Leukocyte Esterase NEG Urine RBC 12 Urine WBC 1 Urine Squamous Epithelial Cells <1 Microscopic Urinalysis Comment CULT NOT INDICATED Urine Opiates Screen NEG Urine Barbiturates Screen NEG Urine Amphetamines Screen NEG Urine Benzodiazepines Screen NEG Urine Cocaine Screen POS Urine Cannabinoids Screen NEG Phosphorus Level 3.8 Result Diagram: 10/06/17 0711 10/06/17 0711 Personally reviewed images: Yes Imaging Last Impressions Renal Ultrasound 10/05/17 0000 Signed Impressions: Service Date/Time: Thursday, October 05, 2017 07:51 - CONCLUSION: 1. Severe bilateral hydronephrosis. 2. Distended, thick-walled, trabeculated urinary bladder with multiple diverticula and debris. 3. Bilateral pleural effusions. 4. Echogenic kidneys suggesting medical renal disease. Jose D Parmar MD Assessment and Plan Assessment and Plan Urologic impression: #1 probable bladder outlet obstruction of long-standing nature #2 deterioration in renal function likely related to chronic bladder outlet obstruction Recommendations: #1 continue with indwelling Johnson catheter to gravity drainage #2 Johnson catheter to remain indwelling even after discharge from hospital #3 patient to follow up with his established urologist over at the [facility] upon discharge from the hospital for ongoing urologic workup and management. #4 will be available as needed during present hospitalization Iron Qiuntana MD Oct 06, 2017 09:55
[2017-10-06] MEDS ORDERED: INFLUENZA VIRUS VACCINE (QUADRIVALENT) 0.5 ML SYR IM ONE (10:00)
[2017-10-06 10:23] LABS: CKMB 6.2 NG/ML (0.5-3.6)
[2017-10-06] MEDS ORDERED: NIFE1TAB86 PO (11:54)
[2017-10-06] MEDS ORDERED: TAMS5CAP PO (11:54)
--- NOTE | 2017-10-06 11:55 | HHI.DCPOC ---
Discharge Care Plan Diagnosis: (1) HTN (hypertension) (2) Cocaine abuse (3) Tobacco abuse (4) Bladder outlet obstruction (5) Renal failure (ARF), acute on chronic Goals to Promote Your Health * To prevent worsening of your condition and complications * To maintain your health at the optimal level Directions to Meet Your Goals Take your medications as prescribed Follow your dietary instruction Follow activity as directed Keep your appointments as scheduled Take your immunizations and boosters as scheduled If your symptoms worsen call your PCP, if no PCP go to Urgent Care Center or Emergency Room Smoking is Dangerous to Your Health. Avoid second hand smoke Call the 24-hour hour crisis hotline for domestic abuse at Imelda Meraz MD Oct 06, 2017 11:55
--- NOTE | 2017-10-06 12:01 | HHI.NPPN ---
Subjective History of Present Illness 67-year-old male with past medical history of hypertension and chronic [facility] to [facility] to the hospital because of hyperkalemia. I was called to see the patient because of hyperkalemia and elevated creatinine. The patient has a known history of chronic kidney disease and his creatinine was 1.8 to 1.9 in July of 2015. Additional Remarks Patient is alert, no headache, no dizziness, no SOB. Objective Data Data Vital Signs Date Time Temp Pulse Resp B/P (MAP) Pulse Ox O2 Delivery O2 Flow Rate FiO2 10/06/17 09:07 97.3 73 20 164/106 (125) 96 10/06/17 04:00 98.4 86 18 152/75 (100) 96 10/06/17 03:49 81 10/06/17 00:00 98.9 82 18 152/70 (97) 94 10/05/17 23:40 81 10/05/17 20:00 99.0 89 18 136/69 (91) 96 10/05/17 19:54 87 10/05/17 16:00 97.8 81 18 126/77 (93) 99 10/05/17 12:00 97.8 81 18 162/77 (105) 96 -: 10/06/17 0711 10/06/17 0711 Physical Exam General Appearance: No Acute Distress, Comfortable Eyes Eye Exam: Pupils Equal Throat Throat Exam: Oral Mucosa [place] & Moist Neck Neck Exam: Neck Supple Pulmonary Resp Exam: Breath Sounds Equal, No Distress, Decreased Bases Cardiology CV Exam: Regular, Normal Sinus Rhythm Gastrointestinal/Abdomen GI Exam: Soft, Non-Tender, Bowel Sounds Present Extremeties Extremities Exam: No Edema Neurologic Neuro Exam: Alert, Awake, Oriented Psychiatric Psych Exam: Appropriate Responses Assessment/Plan Assessment Summary: CRISTINA/Acute Renal Failure, Hypertension, CKD Stage IV Electrolyte Assessment: Hyperkalemia Problem List: (1) Hydronephrosis ICD Codes: N13.30 - Hydronephrosis Status: Acute (2) CHF (congestive heart failure) ICD Codes: I50.9 - Congestive heart failure Status: Acute (3) COPD (chronic obstructive pulmonary disease) ICD Codes: J44.9 - Chronic obstructive pulmonary disease Status: Chronic (4) HTN (hypertension) ICD Codes: I10 - Hypertension Status: Chronic (5) Renal failure (ARF), acute on chronic ICD Codes: N17.9 - [id number]-bfvzrcy renal failure; N18.9 - Chronic kidney disease, unspecified Status: Acute (6) Chronic renal insufficiency ICD Codes: N18.9 - Chronic kidney disease, unspecified Status: Acute Plan Patient has chronic kidney disease, possibly stage 4. Has Hyperkalemia, now normalized. With Johnson's catheter. BP is elevated, D/C IVF. Now eating well. Creatinine is stable at 3.7. Seen by the urology, keep the Johnson's catheter. Problem Qualifiers (1) Renal failure (ARF), acute on chronic: Alysha Gimenez MD Oct 06, 2017 12:01
--- NOTE | 2017-10-06 12:02 | HHI.DS ---
Discharge Summary Admission Date Oct 04, 2017 at 22:45 Discharge Date: Oct 06, 2017 Admitting Diagnosis hyperkalemia (1) CRISTINA (acute kidney injury) ICD Code: N17.9 - Acute kidney failure, unspecified (2) Hyperkalemia ICD Code: E87.5 - Hyperkalemia (3) Elevated troponin ICD Code: R74.8 - Abnormal levels of other serum enzymes (4) HTN (hypertension) ICD Code: I10 - Essential (primary) hypertension (5) Cocaine abuse ICD Code: F14.10 - Cocaine abuse, uncomplicated (6) Tobacco abuse ICD Code: Z72.0 - Tobacco use Procedures None Brief History - From Admission This is a 67-year-old male with a PMH of HTN, CKD, Tobacco Abuse and Cocaine Abuse who was sent to the ER from the [facility] secondary to abnormal lab work. Pt states he had routine lab work done at the [facility] today and was informed he needed to come to the ER for elevated K+. Pt without complaints at this time. Denies fever, chills, nausea, vomiting, diarrhea or chest pain. On arrival, BP 152/83 , HR 72, O2 sat 98% on RA, Afebrile. CBC is essentially unremarkable. Creatinine 4.05, previously 1.92 on 07/30/15. K+ 6.3. S/p Insulin/D50/ Kayexalate in ER. Trop 0.09. CXR w/ minimal bibasilar subsegmental atelectasis. CBC/BMP: 10/06/17 0711 10/06/17 0711 Significant Findings Laboratory Tests Test 10/04/17 17:30 10/04/17 19:00 10/05/17 10:18 10/05/17 16:00 Red Blood Count 3.53 MIL/MM3 (4.50-5.90) 3.59 MIL/MM3 (4.50-5.90) Hemoglobin 10.3 GM/DL (13.0-17.0) 10.3 GM/DL (13.0-17.0) Hematocrit 31.2 % (39.0-51.0) 31.5 % (39.0-51.0) Neutrophils (%) (Auto) 71.5 % (16.0-70.0) 70.4 % (16.0-70.0) Blood Urea Nitrogen 45 MG/DL (7-18) 44 MG/DL (7-18) Creatinine 4.05 MG/DL (0.60-1.30) 3.76 MG/DL (0.60-1.30) Random Glucose 133 MG/DL (74-106) 129 MG/DL (74-106) Albumin 3.2 GM/DL (3.4-5.0) 3.1 GM/DL (3.4-5.0) Calcium Level 8.2 MG/DL (8.5-10.1) 8.0 MG/DL (8.5-10.1) Potassium Level 6.3 MEQ/L (3.5-5.1) 5.2 MEQ/L (3.5-5.1) Chloride Level 114 MEQ/L (98-107) 116 MEQ/L (98-107) Carbon Dioxide Level 19.1 MEQ/L (21.0-32.0) Estimat Glomerular Filtration Rate 18 ML/MIN (>89) 19 ML/MIN (>89) Troponin I 0.09 NG/ML (0.02-0.05) 0.10 NG/ML (0.02-0.05) Monocytes (%) (Auto) 8.4 % (0.0-8.0) Anion Gap 4 MEQ/L (5-15) Urine RBC 12 /hpf (0-3) Urine Cocaine Screen POS (NEG) Test 10/06/17 07:11 Red Blood Count 3.51 MIL/MM3 (4.50-5.90) Hemoglobin 9.9 GM/DL (13.0-17.0) Hematocrit 30.6 % (39.0-51.0) Blood Urea Nitrogen 41 MG/DL (7-18) Creatinine 3.74 MG/DL (0.60-1.30) Calcium Level 7.8 MG/DL (8.5-10.1) Chloride Level 118 MEQ/L (98-107) Carbon Dioxide Level 16.9 MEQ/L (21.0-32.0) Estimat Glomerular Filtration Rate 20 ML/MIN (>89) Total Creatine Kinase 368 U/L (39-308) Creatine Kinase MB 6.2 NG/ML (0.5-3.6) Complement C3 81 MG/DL (90-180) Imaging Last Impressions Renal Ultrasound 10/05/17 0000 Signed Impressions: Service Date/Time: Saturday, October 05, 2017 07:51 - CONCLUSION: 1. Severe bilateral hydronephrosis. 2. Distended, thick-walled, trabeculated urinary bladder with multiple diverticula and debris. 3. Bilateral pleural effusions. 4. Echogenic kidneys suggesting medical renal disease. Jose D Parmar MD PE at Discharge GENERAL: This is a well-nourished, well-developed patient, in no apparent distress. CARDIOVASCULAR: Normal rate and regular rhythm without murmurs, gallops, or rubs. RESPIRATORY: Good respiratory efforts. Breath sounds equal and clear to auscultation bilaterally. GASTROINTESTINAL: Abdomen soft, non-tender, non-distended. Normal active bowel sounds MUSCULOSKELETAL: Extremities without cyanosis, or edema. NEURO: Alert & Oriented x4 to person, place, time, situation. Moves all ext x4 PSYCH: Appropriate mood and affect. Pt update on day of discharge Patient reports he is feeling well. No complaints. We discussed discharge planning at length and the need to follow up with Urology and Nephrology at the [facility]. Hospital Course 67-year-old male admitted and treated for the following. Acute on chronic renal failure: Probably mainly due to bladder outlet obstruction in addition to cocaine use and uncontrolled HTN. US revealed severe Hydronephrosis. Patient was seen by Urology who advised continuing Johnson, Flomax , and outpatient follow up at the [facility]. Nephrology also followed the patient. Renal functions improved and stabilized. Potassium normalized. HTN: Uncontrolled on presentation. ? compliance. He also use cocaine. The patient was extensively counseled. he was started on Procardia. He is advised to follow up outpatient with PCP. Cocaine and tobacco abuse: The patient was extensively counseled to quit. Pt Condition on Discharge: Good Discharge Disposition: Discharge Home Discharge Time: <= 30 minutes Discharge Instructions DIET: Follow Instructions for: Renal Failure Diet Activities you can perform: Regular-No Restrictions Follow up Referrals: Nephrology - 2 Weeks PCP Follow-up - 3-5 Days Urology - 1 Week New Medications: Nifedipine ER 24 HR (Procardia XL) 60 Mg Tab 60 MG PO BID, #60 TAB 0 Refills Tamsulosin (Flomax) 0.4 Mg Cap 0.4 MG PO DAILY, #30 CAP Imelda Meraz MD Oct 06, 2017 12:02
[2017-10-06 12:04] VITALS: BP 163/73; PULSE 73; RESP 20; TEMP 98; O2SAT 95
[2017-10-07 15:14] LABS: ANA SCREEN POS (NEG)
[2017-10-09 14:47] LABS: ANA TITER QUANT 1:40 (NEG)
[2017-10-10 03:51] LABS: MYELOPEROXIDASE LESS THAN 1.0 AI (<1.0); PROTEINASE-3 LESS THAN 1.0 AI (<1.0)
== END 2017-10-06 15:43 | disposition home or self-care (01) | DRG 683 ==
LOC: NEPE 16:19 → NEDA 22:45 → OBSVTOIN 22:45 → N04A 10-05 00:30
PROVIDERS: ADMIT Family Medicine; ATTEND Family Medicine
DX: N17.9 Acute kidney failure, unspecified (principal); I13.0 Hypertensive heart and chronic kidney disease with heart failure and stage 1 through stage 4 chronic kidney disease, or unspecified chronic kidney disease; E11.22 Type 2 diabetes mellitus with diabetic chronic kidney disease; I50.9 Heart failure, unspecified; E87.5 Hyperkalemia; I48.91 Unspecified atrial fibrillation; N18.4 Chronic kidney disease, stage 4 (severe); N13.30 Unspecified hydronephrosis; K21.9 Gastro-esophageal reflux disease without esophagitis; R74.8 Abnormal levels of other serum enzymes; D63.1 Anemia in chronic kidney disease; N32.0 Bladder-neck obstruction; N32.89 Other specified disorders of bladder; J44.9 Chronic obstructive pulmonary disease, unspecified; F14.10 Cocaine abuse, uncomplicated; F17.210 Nicotine dependence, cigarettes, uncomplicated; Z84.1 Family history of disorders of kidney and ureter
CPT/HCPCS: 76775; 80048; 80053; 80307; 81001; 82550; 82552; 83735; 84100; 84484; 85025; 85027; 85610; 85730; 86021; 86038; 86039; 86160; 93005; J0610; J1644; J1815; J7030

== ENCOUNTER 2018-06-19 10:04 | Inpatient (IN) ==
[2018-06-19 11:05] LABS: Baso % (Auto) 0.4 % (0.0-2.0); Eos # (Auto) 0.1 th/mm3 (0.0-0.4); Eos % (Auto) 1.8 % (0.0-4.0); Hematocrit 36.4 % (39.0-51.0); Hemoglobin 11.8 gm/dL (13.0-17.0); Lymph # (Auto) 1.2 th/mm3 (1.0-4.8); Lymph % (Auto) 16.1 % (9.0-44.0); Mean Corpuscular HGB Conc 32.5 % (32.0-36.0); Mean Corpuscular Hemoglobin 28.6 pg (27.0-34.0); Mean Corpuscular Volume 88.1 fL (80.0-100.0); Mean Platelet Volume 9.2 fL (7.0-11.0); Mono # (Auto) 0.4 th/mm3 (0.0-0.9); Mono % (Auto) 5.5 % (0.0-8.0); Neut # (Auto) 5.6 th/mm3 (1.8-7.7); Neut % (Auto) 76.2 % (16.0-70.0); Platelet Count 132 th/mm3 (150-450); Red Blood Count 4.13 mil/mm3 (4.50-5.90); White Blood Count 7.4 th/mm3 (4.0-11.0)
--- NOTE | 2018-06-19 11:05 | XR ---
EXAM DATE: 06/19/2018 10:57 AM EDT AGE/SEX: 67 years / Male INDICATIONS: Dyspnea CLINICAL DATA: This is the patient's initial encounter. Patient reports that signs and symptoms have been present for 3 days and indicates a pain score of 0/10. MEDICAL/SURGICAL HISTORY: None. None. COMPARISON: [facility] – [place] SING[place], 07/29/2015. . FINDINGS: The cardiac silhouette is enlarged in transverse diameter. There are findings of congestive heart ernesto lure with interstitial and alveolar opacity bilaterally. A small left sided effusion is present. CONCLUSION: Cardiomegaly and findings of congestive heart failure. Electronically signed by: Layo Mitchell MD 06/19/2018 11:03 AM EDT
[2018-06-19 11:08] LABS: ABG Base Excess -9.6 mmol/L (-2-2); ABG PCO2 29 mmHg (38-42); ABG PO2 53 mmHg (61-120)
[2018-06-19 11:21] LABS: Albumin 2.9 g/dL (3.4-5.0); Anion Gap 9 meq/L (5-15); Blood Urea Nitrogen 32 mg/dL (7-18); Carbon Dioxide 16.7 meq/L (21.0-32.0); Chloride 117 meq/L (98-107); Glomerular Filtration Rate 22 mL/min (>89); Glucose,Random 99 mg/dL (74-106); Potassium 4.3 meq/L (3.5-5.1); Sodium 143 meq/L (136-145)
[2018-06-19 11:23] LABS: Aspartate Aminotransferase 20 U/L (15-37)
[2018-06-19 11:37] LABS: Alanine Aminotransferase 33 U/L (12-78); Alkaline Phosphatase 92 U/L (45-117); Creatine Kinase 310 U/L (39-308); Total Protein 6.2 g/dL (6.4-8.2); Troponin I 0.11 ng/mL (0.02-0.05)
[2018-06-19 11:51] LABS: CKMB Percent 2.1 % (0.0-4.0); Creatine Kinase MB 6.5 ng/mL (0.5-3.6)
[2018-06-19 11:53] LABS: Bacteria,Urine Many /hpf; Bilirubin,Urine Negative (Negative); Clarity,Urine Cloudy (Clear); Color,Urine Yellow (Yellw/Straw); Glucose,Urine (UA) Negative (Negative); Leukocyte Esterase,Urine Large (Negative); Mucus,Urine Few /lpf (Occasional); Nitrite,Urine Negative (Negative); Specific Gravity,Urine 1.011 (1.002-1.035); Squamous Epithelial Cell,Urine <1 /hpf (0-5)
--- NOTE | 2018-06-19 11:56 | ED ---
HPI General Chief complaint: Respiratory Symptoms Stated complaint: Resp Time Seen by Provider: 06/19/18 10:24 History of Present Illness HPI narrative: This is a 67-year-old male with a history of tobaccoism, presents today with complaints of 3-4-day history of progressive shortness of breath. Patient denies any fevers, chills. He does report productive cough with clear white phlegm. He states that he has dyspnea on exertion. There is no reported chest pain, chest pressure. Patient also reports he has had swelling of his hands and his feet over the last several days as well. He states this is new. Patient reports smoking 1 pack of cigarettes every 2 days. He denies any history of heart disease. He denies any history of congestive heart failure. He denies any history of COPD. Related Data Home Medications Medication Instructions Recorded Confirmed aspirin 325 mg PO DAILY 06/19/18 06/19/18 finasteride 5 mg PO DAILY 06/19/18 06/19/18 hydralazine 50 mg PO TID 06/19/18 06/19/18 multivitamin 1 tab PO DAILY 06/19/18 06/19/18 nifedipine 60 mg PO DAILY 06/19/18 06/19/18 Allergies Allergy/AdvReac Type Severity Reaction Status Date / Time No Known Allergies Allergy Verified 06/19/18 10:43 Review of Systems ROS: all other systems reviewed are negative Constitutional Denies chills and Denies fever(s) Eyes Reports system reviewed and no additional complaints, except as [facility] E[facility] Reports system reviewed and no additional complaints, except as [facility]u Cardiovascular Denies chest pain, Denies diaphoresis, Reports edema (Bilateral hands and bilateral feet), Reports leg edema, Reports dyspnea and Reports orthopnea Respiratory Reports chest congestion, Reports cough (Clear white phlegm) and Reports dyspnea Gastrointestinal Denies abdominal pain, Denies nausea and Denies vomiting Genitourinary Denies difficulty urinating and Denies dysuria Musculoskeletal Reports as per HPI, Denies back pain and Reports other (Bilateral lower extremity and upper extremity edema.) Integumentary/Breasts Reports system reviewed and no additional complaints, except as [facility] Neurologic Reports system reviewed and no additional complaints, except as [facility] Medical History Medical History Cocaine abuse (Acute) Enlarged prostate (Acute) Leg fracture, left (Acute) Pneumonia (Acute) Family History Family History Other Hypertension Type 2 diabetes mellitus Social History Social History Substance History: Active Abuse Second Hand Smoke Exposure: No Smoking Status: Current every day smoker Tobacco Type: Cigarettes How Often Do You Have a Drink Containing Alcohol: Monthly or less Recent Travel in [facility] within the Last 8 Weeks: No Recent Out of Country Travel within the Last 8 Weeks: No Substance Abuse Detail Crack/Cocaine: Substance Use Status: Active Route Used Substance Abuse: Inhalation Immunization History Tetanus Immunization: Never Vaccinated Hx Influenza Vaccine This Season: Yes Exam Narrative Exam Narrative: GENERAL: Well-developed well-nourished male in mild to moderate respiratory discomfort. SKIN: Focused skin assessment warm/dry. HEAD: Atraumatic. Normocephalic. EYES: No scleral icterus. No injection or drainage. ENT: No nasal bleeding or discharge. Mucous membranes pink and moist. NECK: Trachea midline. No JVD. CARDIOVASCULAR: Regular rate and rhythm. No obvious murmur appreciated. RESPIRATORY: Bilateral rales in the upper and lower lung [place]. Worse on the right and on the left. No rhonchi appreciated. GASTROINTESTINAL: Abdomen soft, non-tender, nondistended. MUSCULOSKELETAL: No obvious deformities. No clubbing. No cyanosis. Trace bilateral hand edema. Bilateral pretibial 1+ edema NEUROLOGICAL: Awake and alert. No obvious cranial nerve deficits. Motor grossly within normal limits. Normal speech. Course Initial Documented Vital Signs Temperature 98.6 F 06/19/18 10:25 Pulse Rate 86 06/19/18 10:25 Respiratory Rate 18 06/19/18 10:25 Blood Pressure 142/80 H 06/19/18 10:25 Pulse Oximetry 94 L 06/19/18 10:25 Last Documented Vital Signs Temperature 98.6 F 06/19/18 10:25 Pulse Rate 87 06/19/18 11:35 Respiratory Rate 23 06/19/18 11:35 Blood Pressure 142/80 H 06/19/18 10:25 Pulse Oximetry 93 L 06/19/18 11:42 Medical Decision Making [facility] Narrative Medical decision making narrative: 67-year-old male with a history of tobacco use, presents today with worsening shortness of breath over the last several days. The patient has also edema to his bilateral hands and lower extremities. Patient's chest x-ray shows congestive heart failure. Patient's blood gas on room air shows a pH of 7.335. PCO2 of 29.1. PO2 of 53 with an O2 sat of 82%. He has been placed back on oxygen. He has been given 40 mg of Lasix IV x1 dose. There is a call out to the [facility] hospitalist for admission for new onset CHF. Patient's creatinine is also above 3. Patient denies any previous history of renal problems. His troponins also 0.11 which is likely secondary to the congestive heart failure. Medical Screen Exam Complete: Yes Emergency Medical Condition: Yes Differential Diagnosis Differential Diagnosis: CHF versus pneumonia versus COPD Lab Data Result diagrams: 06/19/18 10:35 06/19/18 10:35 Lab Results 06/19/18 06/19/18 06/19/18 Range/Units 10:35 10:35 10:35 WBC 7.4 (4.0-11.0) th/mm3 RBC 4.13 L (4.50-5.90) mil/mm3 Hgb 11.8 L (13.0-17.0) gm/dL Hct 36.4 L (39.0-51.0) % MCV 88.1 (80.0-100.0) fL MCH 28.6 (27.0-34.0) pg MCHC 32.5 (32.0-36.0) % RDW 17.0 (11.6-17.2) % Plt Count 132 L (150-450) th/mm3 MPV 9.2 (7.0-11.0) fL Neut % (Auto) 76.2 H (16.0-70.0) % Lymph % (Auto) 16.1 (9.0-44.0) % [place] % (Auto) 5.5 (0.0-8.0) % Eos % (Auto) 1.8 (0.0-4.0) % Baso % (Auto) 0.4 (0.0-2.0) % Neut # (Auto) 5.6 (1.8-7.7) th/mm3 Lymph # (Auto) 1.2 (1.0-4.8) th/mm3 [place] # (Auto) 0.4 (0.0-0.9) th/mm3 Eos # (Auto) 0.1 (0.0-0.4) th/mm3 Baso # (Auto) 0.0 (0.0-0.2) th/mm3 WBC Differential . Differential Comment Auto diff final Puncture Site Patient Temperature O2 Saturation (90-100) % ABG pH (7.380-7.420) ABG pCO2 (38-42) mmHg ABG pO2 (61-120) mmHg ABG HCO3 (22-26) mmol/L ABG O2 Content (12.0-20.0) Vol % ABG Base Excess (-2-2) mmol/L ABG Methemoglobin (0-2) % Perfecto Test Hemoglobin (12.0-16.0) G/DL Carboxyhemoglobin (0-4) % Inspired O2 % Critical Value Sodium 143 (136-145) meq/L Potassium 4.3 (3.5-5.1) meq/L Chloride 117 H (98-107) meq/L Carbon Dioxide 16.7 L (21.0-32.0) meq/L Anion Gap 9 (5-15) meq/L BUN 32 H (7-18) mg/dL Creatinine 3.37 H (0.60-1.30) mg/dL Estimated GFR 22 L (>89) mL/min Random Glucose 99 (74-106) mg/dL Calcium 8.0 L (8.5-10.1) mg/dL Total Bilirubin 0.3 (0.2-1.0) mg/dL AST 20 (15-37) U/L ALT 33 (12-78) U/L Alkaline Phosphatase 92 (45-117) U/L Total Creatine Kinase 310 H Cancelled (39-308) U/L CK-MB (CK-2) 6.5 H (0.5-3.6) ng/mL CK-MB (CK-2) % 2.1 (0.0-4.0) % Troponin I 0.11 H (0.02-0.05) ng/mL Total Protein 6.2 L (6.4-8.2) g/dL Albumin 2.9 L (3.4-5.0) g/dL Urine Color (Yellw/Straw) Urine Clarity (Clear) Urine pH (5.0-8.5) Ur Specific [place] (1.002-1.035) Urine Protein (Neg-Trace) mg/dL Urine Glucose (UA) (Negative) mg/dL Urine Ketones (Negative) mg/dL Urine Occult Blood (Negative) Urine Nitrate (Negative) Urine Bilirubin (Negative) Urine Urobilinogen (Less than 2) mg/dL Ur Leukocyte Esterase (Negative) Urine RBC (0-3) /hpf Urine WBC (0-5) /hpf Urine WBC Clumps (None) Ur Squamous Epith Cells (0-5) /hpf Urine Bacteria (None) /hpf Urine Mucus (Occasional) /lpf Micro UA Comment Ur Microscopic Review Urine Culture Comments 06/19/18 06/19/18 Range/Units 10:56 11:20 WBC (4.0-11.0) th/mm3 RBC (4.50-5.90) mil/mm3 Hgb (13.0-17.0) gm/dL Hct (39.0-51.0) % MCV (80.0-100.0) fL MCH (27.0-34.0) pg MCHC (32.0-36.0) % RDW (11.6-17.2) % Plt Count (150-450) th/mm3 MPV (7.0-11.0) fL Neut % (Auto) (16.0-70.0) % Lymph % (Auto) (9.0-44.0) % [place] % (Auto) (0.0-8.0) % Eos % (Auto) (0.0-4.0) % Baso % (Auto) (0.0-2.0) % Neut # (Auto) (1.8-7.7) th/mm3 Lymph # (Auto) (1.0-4.8) th/mm3 [place] # (Auto) (0.0-0.9) th/mm3 Eos # (Auto) (0.0-0.4) th/mm3 Baso # (Auto) (0.0-0.2) th/mm3 WBC Differential Differential Comment Puncture Site Left radial Patient Temperature 98.6 O2 Saturation 82 L* (90-100) % ABG pH 7.34 L (7.380-7.420) ABG pCO2 29 L (38-42) mmHg ABG pO2 53 L* (61-120) mmHg ABG HCO3 15 L* (22-26) mmol/L ABG O2 Content 13.3 (12.0-20.0) Vol % ABG Base Excess -9.6 L (-2-2) mmol/L ABG Methemoglobin 1.4 (0-2) % Perfecto Test Present Hemoglobin 11.5 L (12.0-16.0) G/DL Carboxyhemoglobin 2.6 (0-4) % Inspired O2 21 % Critical Value Yes Sodium (136-145) meq/L Potassium (3.5-5.1) meq/L Chloride (98-107) meq/L Carbon Dioxide (21.0-32.0) meq/L Anion Gap (5-15) meq/L BUN (7-18) mg/dL Creatinine (0.60-1.30) mg/dL Estimated GFR (>89) mL/min Random Glucose (74-106) mg/dL Calcium (8.5-10.1) mg/dL Total Bilirubin (0.2-1.0) mg/dL AST (15-37) U/L ALT (12-78) U/L Alkaline Phosphatase (45-117) U/L Total Creatine Kinase (39-308) U/L CK-MB (CK-2) (0.5-3.6) ng/mL CK-MB (CK-2) % (0.0-4.0) % Troponin I (0.02-0.05) ng/mL Total Protein (6.4-8.2) g/dL Albumin (3.4-5.0) g/dL Urine Color Yellow (Yellw/Straw) Urine Clarity Cloudy H (Clear) Urine pH 5.0 (5.0-8.5) Ur Specific [place] 1.011 (1.002-1.035) Urine Protein 100 H (Neg-Trace) mg/dL Urine Glucose (UA) Negative (Negative) mg/dL Urine Ketones Negative (Negative) mg/dL Urine Occult Blood Small H (Negative) Urine Nitrate Negative (Negative) Urine Bilirubin Negative (Negative) Urine Urobilinogen Less than 2 (Less than 2) mg/dL Ur Leukocyte Esterase Large H (Negative) Urine RBC 12 H (0-3) /hpf Urine WBC (0-5) /hpf Urine WBC Clumps Moderate H (None) Ur Squamous Epith Cells <1 (0-5) /hpf Urine Bacteria Many H (None) /hpf Urine Mucus Few H (Occasional) /lpf Micro UA Comment Culture indicated Ur Microscopic Review Not Reportable Urine Culture Comments Culture indicated Imaging Data Radiologist's impression: Chest X-Ray 06/19/18 10:37 CONCLUSION: Cardiomegaly and findings of congestive heart failure. Discharge Plan Discharge Disposition Patient Disposition: 30 Still Patient Discharge Details Diagnosis: New onset of congestive heart failure, Acute kidney injury, Elevated troponin, Tobacco use, Hypoxia Physicians Team ED Provider: Saul Miranda Primary Care Provider: [facility] '[facility] Attending Provider: Александр Sanchez Other Providers: Ludwig Nivees Status ED Status: Admitted Patient
[2018-06-19] MEDS ORDERED: Acetaminophen 325 MG Tablet PO PRN (13:39)
--- NOTE | 2018-06-19 13:51 | P.HP ---
History of Present Illness Primary Care Physician: [facility] History of Present Illness: 67-year-old male with a history of hypertension presents with what appears to be a CHF exacerbation. He has thus far undiagnosed with CHF describes a history of gradual fluid accumulation in his lower extremities over the last 2 weeks associated with intermittent shortness of breath, quotes good days and bad days". When he awoke this morning symptoms of shortness of breath were severe and he was unable to breathe so eventually he called 911 and was transported to the emergency room. On arrival his oxygenation was 82%, initial troponin was 0.11. He admits to smoking one half a pack of tobacco per day. He denies any nausea vomiting or diarrhea. Denies any dysuria, foul-smelling urine, reduced urine output. Inpatient Certification: I certify that the inpatient services were ordered in accordance with Medicare regulations governing the order. This includes certification that hospital inpatient services are reasonable and necessary and in the case of services not specified as inpatient-only under 42 CFR 419.22(n), that they are appropriately provided as inpatient services in accordance to with the 2-midnight benchmark under 43 CFR 412.3(e) Estimated Total Length of Stay (Days): 3 Plans for Post Hospital Care: Home Review of Systems All other systems reviewed negative except as stated in HPI PMFSH - History History Provided By: Patient, Verification Engineer / EMT - Medical History Medical History: Medical History (Last Updated 06/19/18 @ 13:46 by Александр Sanchez MD) Cocaine abuse Enlarged prostate Leg fracture, left Pneumonia - Family History Family History: Family History (Last Updated 06/19/18 @ 13:47 by Александр Sanchez MD) Other Hypertension Type 2 diabetes mellitus - Tobacco History Second Hand Smoke Exposure: No Tobacco Use In Past 30 Days: No Smoking Status: Current every day smoker Tobacco Type: Cigarettes - Alcohol History How Often Do You Have a Drink Containing Alcohol: Monthly or less - Substance Use History Substance History: Active Abuse - Substance Use Type Crack/Cocaine Status: Active Route Used: Inhalation - Travel History Recent Travel in the [place] Within the Last 8 Weeks: No Recent Travel Out of the Country Within the Last 8 Weeks: No - Immunization History Tetanus Immunization: Never Vaccinated Hx Influenza Vaccine This Season: Yes Medications and Allergies Active Medications: Active Medications Acetaminophen (Tylenol) 650 mg PO Q4H PRN PRN Reason: Temp > 100.4 Al Hydroxide/Mg Hydroxide (Milk Of Nicky Henry) 30 ml PO Q12H PRN PRN Reason: Mild Constipation Enoxaparin Sodium (Lovenox Inj) 40 mg SQ Q24H KATHRYN Ondansetron HCl (Zofran Inj) 4 mg IV.PUSH Q6H PRN PRN Reason: NAUSEA OR VOMITING Sennosides (Senokot) 17.2 mg PO Q12H PRN PRN Reason: Moderate Constipation Allergies Allergy/AdvReac Type Severity Reaction Status Date / Time No Known Allergies Allergy Verified 06/19/18 10:43 Exam Vital signs: Vital Signs 06/19/18 10:25 06/19/18 11:21 06/19/18 11:35 Temperature 98.6 F Pulse Rate 86 80 87 Respiratory Rate 18 20 23 Blood Pressure 142/80 H Pulse Oximetry 94 L 06/19/18 11:42 Temperature Pulse Rate Respiratory Rate Blood Pressure Pulse Oximetry 93 L Intake & Output 06/18/18 06/19/18 06/19/18 18:59 06:59 18:59 Weight 72.732 kg Narrative: GENERAL: AAOx3, moderate breathing distress, adequate nutrition SKIN: Warm and dry, no rashes. HEAD: Atraumatic. Normocephalic. EYES: Pupils equal, round, reactive to light. No scleral icterus. No injection or drainage. ENT: No nasal bleeding or discharge. Moist mucous membranes. Nonerythematous oropharynx. NECK: Trachea midline. No JVD. Thyroid size within normal limits. CARDIOVASCULAR: Regular rate and rhythm. No murmur, no gallops, no rubs. RESPIRATORY: Atelectasis and scant crackles in bilateral bases. No accessory muscle use. GASTROINTESTINAL: Abdomen soft, non-tender, nondistended, normal active bowel sounds. Hepatic and splenic margins not palpable. MUSCULOSKELETAL: 1+ edema to mid bunch NEUROLOGICAL: Awake and alert. No obvious cranial nerve deficits. Motor grossly within normal limits. No focal deficits. Five out of 5 muscle strength in the arms and legs. Normal speech. PSYCHIATRIC: Appropriate mood and affect; insight and judgment normal. Results - Labs CBC & Chem 7: 06/19/18 10:35 06/19/18 10:35 Labs: Laboratory Results - last 24 hr 06/19/18 06/19/18 06/19/18 10:35 10:35 10:35 WBC 7.4 RBC 4.13 L Hgb 11.8 L Hct 36.4 L MCV 88.1 MCH 28.6 MCHC 32.5 RDW 17.0 Plt Count 132 L MPV 9.2 Neut % (Auto) 76.2 H Lymph % (Auto) 16.1 [place] % (Auto) 5.5 Eos % (Auto) 1.8 Baso % (Auto) 0.4 Neut # (Auto) 5.6 Lymph # (Auto) 1.2 [place] # (Auto) 0.4 Eos # (Auto) 0.1 Baso # (Auto) 0.0 WBC Differential . Differential Comment Auto diff final Puncture Site Patient Temperature O2 Saturation ABG pH ABG pCO2 ABG pO2 ABG HCO3 ABG O2 Content ABG Base Excess ABG Methemoglobin Perfecto Test Hemoglobin Carboxyhemoglobin Inspired O2 Critical Value Sodium 143 Potassium 4.3 Chloride 117 H Carbon Dioxide 16.7 L Anion Gap 9 BUN 32 H Creatinine 3.37 H Estimated GFR 22 L Random Glucose 99 Calcium 8.0 L Total Bilirubin 0.3 AST 20 ALT 33 Alkaline Phosphatase 92 Total Creatine Kinase 310 H Cancelled CK-MB (CK-2) 6.5 H CK-MB (CK-2) % 2.1 Troponin I 0.11 H Total Protein 6.2 L Albumin 2.9 L Urine Color Urine Clarity Urine pH Ur Specific [place] Urine Protein Urine Glucose (UA) Urine Ketones Urine Occult Blood Urine Nitrate Urine Bilirubin Urine Urobilinogen Ur Leukocyte Esterase Urine RBC Urine WBC Urine WBC Clumps Ur Squamous Epith Cells Urine Bacteria Urine Mucus Micro UA Comment Ur Microscopic Review Urine Culture Comments 06/19/18 06/19/18 10:56 11:20 WBC RBC Hgb Hct MCV MCH MCHC RDW Plt Count MPV Neut % (Auto) Lymph % (Auto) [place] % (Auto) Eos % (Auto) Baso % (Auto) Neut # (Auto) Lymph # (Auto) [place] # (Auto) Eos # (Auto) Baso # (Auto) WBC Differential Differential Comment Puncture Site Left radial Patient Temperature 98.6 O2 Saturation 82 L* ABG pH 7.34 L ABG pCO2 29 L ABG pO2 53 L* ABG HCO3 15 L* ABG O2 Content 13.3 ABG Base Excess -9.6 L ABG Methemoglobin 1.4 Perfecto Test Present Hemoglobin 11.5 L Carboxyhemoglobin 2.6 Inspired O2 21 Critical Value Yes Sodium Potassium Chloride Carbon Dioxide Anion Gap BUN Creatinine Estimated GFR Random Glucose Calcium Total Bilirubin AST ALT Alkaline Phosphatase Total Creatine Kinase CK-MB (CK-2) CK-MB (CK-2) % Troponin I Total Protein Albumin Urine Color Yellow Urine Clarity Cloudy H Urine pH 5.0 Ur Specific [place] 1.011 Urine Protein 100 H Urine Glucose (UA) Negative Urine Ketones Negative Urine Occult Blood Small H Urine Nitrate Negative Urine Bilirubin Negative Urine Urobilinogen Less than 2 Ur Leukocyte Esterase Large H Urine RBC 12 H Urine WBC Urine WBC Clumps Moderate H Ur Squamous Epith Cells <1 Urine Bacteria Many H Urine Mucus Few H Micro UA Comment Culture indicated Ur Microscopic Review Not Reportable Urine Culture Comments Culture indicated - Imaging Impressions Chest X-Ray 06/19/18 10:37 CONCLUSION: Cardiomegaly and findings of congestive heart failure. Caprini VTE Risk Assessment Caprini VTE Risk Assessment: Moderate/High Risk (score >= 2) Caprini Risk Assessment Model: Point Value = 1 Point Value = 2 Point Value = 3 Point Value = 5 Age 41-60 Minor surgery BMI > 25 kg/m2 Swollen legs Varicose veins or History of unexplained or recurrent spontaneous Oral contraceptives or hormone replacement Sepsis (< 1 month) Serious lung disease, including pneumonia (< 1 month) Abnormal pulmonary function Acute myocardial infarction Congestive heart failure (< 1 month) History of inflammatory bowel disease Medical patient at bed rest Age 61-74 Arthroscopic surgery Major open surgery (> 45 min) Laparoscopic surgery (> 45 min) Malignancy Confined to bed (> 72 hours) Immobilizing plaster cast Central venous access Age >= 75 History of VTE Family history of VTE Factor V Leiden Prothrombin [id number] Lupus anticoagulant Anticardiolipin antibodies Elevated serum homocysteine Heparin-induced thrombocytopenia Other congenital or acquired thrombophilia Stroke (< 1 month) Elective arthroplasty Hip, pelvis, or leg fracture Acute spinal cord injury (< 1 month) Prophylaxis Regimen: Total Risk Factor Score Risk Level Prophylaxis Regimen 0-1 Low Early ambulation 2 Moderate Order ONE of the following: *Sequential Compression Device (SCD) *Heparin 5000 units SQ BID 3-4 Higher Order ONE of the following medications: *Heparin 5000 units SQ TID *Enoxaparin/Lovenox 40 mg SQ daily (WT < 150 kg, CrCl > 30 mL/min) *Enoxaparin/Lovenox 30 mg SQ daily (WT < 150 kg, CrCl > 10-29 mL/min) *Enoxaparin/Lovenox 30 mg SQ BID (WT < 150 kg, CrCl > 30 mL/min) AND/OR *Sequential Compression Device (SCD) 5 or more Highest Order ONE of the following medications: *Heparin 5000 units SQ TID (Preferred with Epidurals) *Enoxaparin/Lovenox 40 mg SQ daily (WT < 150 kg, CrCl > 30 mL/min) *Enoxaparin/Lovenox 30 mg SQ daily (WT < 150 kg, CrCl > 10-29 mL/min) *Enoxaparin/Lovenox 30 mg SQ BID (WT < 150 kg, CrCl > 30 mL/min) AND *Sequential Compression Device (SCD) Assessment and Plan - Plan New onset CHF Echocardiogram results are pending to confirm diagnosis Patient has a history of hypertension and a previous history of cocaine abuse, long-standing tobacco use Continue with Lasix for diuresis Serial enzymes and EKGs overnight Continue oxygen Cardiology consulted Chronic versus acute renal impairment Elevated creatinine at 3.36 Possible effect of CHF exacerbation, diurese aggressively and follow creatinine level closely Hypertension Moderately elevated Follow for now without BP meds given aggressive diuresis DVT Prophylaxis Lovenox
--- NOTE | 2018-06-19 16:36 | P.CONCA ---
History of Present Illness Service: Cardiology Consult date: 06/19/18 Reason for Consult: Congestive heart failure [facility] Provider[facility] Chief Complaint: Shortness of breath History of Present Illness: Is a 67-year-old male who is not a great historian but alert and oriented. Patient only has a history of hypertension. Patient was describing worsening shortness of breath over the course of the past few days to potentially weeks. He also noted that he had lower extremity edema in both legs. He called 911 was taken to the emergency department where his initial oxygen saturation was in the 80s% range is some chest x-ray showed interstitial edema. He has no prior history of known congestive heart failure. His cardiac biomarkers were mildly elevated. Echocardiogram was ordered. We are consulted for consideration of congestive heart failure. Review of Systems All other systems reviewed negative except as stated in HPI [facility] - History History Provided By: Patient, Blasting Entryman / EMT - Medical History Medical History: Medical History (Last Updated 06/19/18 @ 13:46 by Александр Sanchez MD) Cocaine abuse Enlarged prostate Leg fracture, left Pneumonia - Family History Family History: Family History (Last Updated 06/19/18 @ 13:47 by Александр Sanchez MD) Other Hypertension Type 2 diabetes mellitus - Tobacco History Second Hand Smoke Exposure: No Tobacco Use In Past 30 Days: No Smoking Status: Current every day smoker Tobacco Type: Cigarettes - Alcohol History How Often Do You Have a Drink Containing Alcohol: Monthly or less - Substance Use History Substance History: Active Abuse - Substance Use Type Crack/Cocaine Status: Active Route Used: Inhalation - Travel History Recent Travel in the [place] Within the Last 8 Weeks: No Recent Travel Out of the Country Within the Last 8 Weeks: No - Immunization History Tetanus Immunization: Never Vaccinated Hx Influenza Vaccine This Season: Yes Medications and Allergies Active Medications: Active Medications Acetaminophen (Tylenol) 650 mg PO Q4H PRN PRN Reason: Temp > 100.4 Al Hydroxide/Mg Hydroxide (Milk Of Magnesia Liq) 30 ml PO Q12H PRN PRN Reason: Mild Constipation Enoxaparin Sodium (Lovenox Inj) 30 mg SQ Q24H KATHRYN Furosemide (Lasix Inj) 40 mg IV.PUSH BID@0900,1800 KATHRYN Ondansetron HCl (Zofran Inj) 4 mg IV.PUSH Q6H PRN PRN Reason: NAUSEA OR VOMITING Sennosides (Senokot) 17.2 mg PO Q12H PRN PRN Reason: Moderate Constipation Allergies Allergy/AdvReac Type Severity Reaction Status Date / Time No Known Allergies Allergy Verified 06/19/18 10:43 Home Medications Medication Instructions Recorded Confirmed Type aspirin 325 mg PO DAILY 06/19/18 06/19/18 History finasteride 5 mg PO DAILY 06/19/18 06/19/18 History hydralazine 50 mg PO TID 06/19/18 06/19/18 History multivitamin 1 tab PO DAILY 06/19/18 06/19/18 History nifedipine 60 mg PO DAILY 06/19/18 06/19/18 History Exam Vital signs: Vital Signs 06/19/18 10:25 06/19/18 11:21 06/19/18 11:35 Temperature 98.6 F Pulse Rate 86 80 87 Respiratory Rate 18 20 23 Blood Pressure 142/80 H Pulse Oximetry 94 L 06/19/18 11:42 Temperature Pulse Rate Respiratory Rate Blood Pressure Pulse Oximetry 93 L Intake & Output 06/18/18 06/19/18 06/19/18 18:59 06:59 18:59 Weight 72.732 kg - Constitutional no acute distress - Routine HEENT Exam Eye: Present: PERRL ENT: Present: mucous membranes moist - Routine Neck Exam Present: JVD - Routine Respiratory Exam Present: CTA bilaterally - Routine Cardiovascular Exam Present: murmur, irregular rhythm Results 06/19/18 10:35 06/19/18 10:35 Cardiac Enzymes 06/19/18 Range/Units 10:35 AST 20 (15-37) U/L CK-MB (CK-2) 6.5 H (0.5-3.6) ng/mL Troponin I 0.11 H (0.02-0.05) ng/mL CBC 06/19/18 Range/Units 10:35 WBC 7.4 (4.0-11.0) th/mm3 RBC 4.13 L (4.50-5.90) mil/mm3 Hgb 11.8 L (13.0-17.0) gm/dL Hct 36.4 L (39.0-51.0) % Plt Count 132 L (150-450) th/mm3 Neut # (Auto) 5.6 (1.8-7.7) th/mm3 Lymph # (Auto) 1.2 (1.0-4.8) th/mm3 Bacon # (Auto) 0.4 (0.0-0.9) th/mm3 Eos # (Auto) 0.1 (0.0-0.4) th/mm3 Baso # (Auto) 0.0 (0.0-0.2) th/mm3 Comprehensive Metabolic Panel 06/19/18 Range/Units 10:35 Sodium 143 (136-145) meq/L Potassium 4.3 (3.5-5.1) meq/L Chloride 117 H (98-107) meq/L Carbon Dioxide 16.7 L (21.0-32.0) meq/L BUN 32 H (7-18) mg/dL Creatinine 3.37 H (0.60-1.30) mg/dL Calcium 8.0 L (8.5-10.1) mg/dL AST 20 (15-37) U/L ALT 33 (12-78) U/L Alkaline Phosphatase 92 (45-117) U/L Total Protein 6.2 L (6.4-8.2) g/dL Albumin 2.9 L (3.4-5.0) g/dL Intake and Output 06/19/18 06/19/18 06/19/18 06:59 14:59 22:59 Other: Weight 72.732 kg Patient Weight 06/20/18 06:59 Weight 72.732 kg - Imaging and Cardiology EKG results: other (Show sinus rhythm with occasional premature ventricular complexes no significant ischemic changes) Assessment and Plan - Assessment (1) New onset of congestive heart failure Code(s): I50.9 - Heart failure, unspecified Status: Acute (2) Acute kidney injury Code(s): N17.9 - Acute kidney failure, unspecified Status: Acute (3) Elevated troponin Code(s): R74.8 - Abnormal levels of other serum enzymes Status: Acute (4) Tobacco use Code(s): Z72.0 - Tobacco use Status: Acute (5) Hypoxia Code(s): R09.02 - Hypoxemia Status: Acute - Plan Clinical symptoms consistent with congestive heart failure. Chest x-ray consistent with congestive heart failure. Physical examination findings consistent with congestive heart failure. Will await 2D echocardiogram results to determine whether diastolic or systolic. Patient also has a holosystolic murmur potentially consistent with either mitral or tricuspid regurgitation which may be a contributing factor. Patient's troponin is also mildly elevated. The patient has a cardiomyopathy, then he will need an ischemic workup likely with Lexiscan. We will initiate guideline directed medical therapy particularly with diuretic. Will follow creatinine, potassium, and decide about angiotensin-converting enzyme inhibitor/angiotensin receptor marycarmen therapy.
[2018-06-19] MEDS: Enoxaparin Inj 30 MG/0.3 ML Syringe SQ SCH (16:38)
--- NOTE | 2018-06-19 16:47 | ECG ---
Date Performed: 06/19/2018 Time Performed: 10:34:11 PTAGE: 67 years EKG: Sinus rhythm WITH OCCASIONAL SUPRAVENTRICULAR PREMATURE COMPLEXES MARKED LEFT AXIS DEVIATION INTRAVENTRICULAR CON DUCTION DELAY Poor R wave progression which may be secondary to left axis Deviation. Myocardial infar ction should be considered which is new when Compared to previous tracing. Beaver has also shifted left biggs. ABNORMAL ECG PREVIOUS TRACING : 10/04/2017 18.40 DOCTOR: Layo López Interpretating Date/Time 06/19/2018 16:45:38
[2018-06-20 01:17] LABS: Troponin I 0.1 ng/mL (0.02-0.05)
[2018-06-20 05:35] LABS: Hematocrit 37.3 % (39.0-51.0); Hemoglobin 12.2 gm/dL (13.0-17.0); Mean Corpuscular HGB Conc 32.7 % (32.0-36.0); Mean Corpuscular Volume 88.7 fL (80.0-100.0); Mean Platelet Volume 8.8 fL (7.0-11.0); Platelet Count 141 th/mm3 (150-450); White Blood Count 8.9 th/mm3 (4.0-11.0)
[2018-06-20 06:02] LABS: Calcium 8.4 mg/dL (8.5-10.1); Carbon Dioxide 21.5 meq/L (21.0-32.0); Potassium 4.9 meq/L (3.5-5.1)
[2018-06-20 06:06] LABS: Troponin I 0.1 ng/mL (0.02-0.05)
[2018-06-20 06:12] LABS: Thyroid Stimulating Hormone 0.826 uIU/mL (0.358-3.740)
--- NOTE | 2018-06-20 08:15 | P.PNCA ---
Subjective Interval history: patient states his breathing has improved overnight. diuresing well. no chest pain or palpitations. Physical Exam Vital signs: Vital Signs 06/19/18 10:25 06/19/18 11:21 06/19/18 11:35 Temperature 98.6 F Pulse Rate 86 80 87 Respiratory Rate 18 20 23 Blood Pressure 142/80 H Pulse Oximetry 94 L 06/19/18 11:42 06/19/18 13:39 06/19/18 19:00 Temperature Pulse Rate 84 86 Respiratory Rate 21 25 H Blood Pressure 148/70 H 146/70 H Pulse Oximetry 93 L 95 06/19/18 20:00 06/19/18 20:27 06/20/18 00:00 Temperature 98.4 F 97.8 F Pulse Rate 82 84 Respiratory Rate 20 18 Blood Pressure 148/68 H 132/69 Pulse Oximetry 96 98 99 06/20/18 04:00 Temperature 97.9 F Pulse Rate 61 Respiratory Rate 18 Blood Pressure 112/64 Pulse Oximetry 99 Intake & Output 06/19/18 06/20/18 06/20/18 18:59 06:59 18:59 Intake Total 1200 / 1200 Output Total 2500 / 2500 Balance -1300 / -1300 Weight 72.732 kg 68.7 kg Intake: Oral 1200 / 1200 Output: Urine 2500 / 2500 Other: Bladder Irrigation Fluid - Amount Drained Straight 2,000 # Bowel Movements 0 Weight On Admission 69.6 kg - Urinary Catheter Management Straight Cath placed during this visit: no Reason for continuing: Chronic Urinary Retention Assessment and Plan - Assessment (1) New onset of congestive heart failure Code(s): I50.9 - Heart failure, unspecified Status: Acute (2) Acute kidney injury Code(s): N17.9 - Acute kidney failure, unspecified Status: Acute (3) Elevated troponin Code(s): R74.8 - Abnormal levels of other serum enzymes Status: Acute (4) Tobacco use Code(s): Z72.0 - Tobacco use Status: Acute (5) Hypoxia Code(s): R09.02 - Hypoxemia Status: Acute - Plan 67 yo AAM with HTN and CKD admitted for progressive SOB, edema and hypoxia. He states he is aware of having kidney problems; was supposed to see underwriting operations manager at the [facility] in [place] recently but missed his appointment. Clinical symptoms consistent with congestive heart failure. Chest x-ray consistent with congestive heart failure. Physical examination findings consistent with congestive heart failure. Will await 2D echocardiogram results to determine whether diastolic or systolic. Patient also has a holosystolic murmur potentially consistent with either mitral or tricuspid regurgitation which may be a contributing factor. Patient's troponin is also mildly elevated. If patient has a cardiomyopathy, then he will need an ischemic workup likely with Lexiscan. CHF- 2D echo ordered, clinically improving, but renal function worsening. -1300mL output acute on chronic kidney disease- creatinine elevated, 3.78. remains on IV lasix 40mg BID avoid ACEi/Arb will consult nephrology - Attending Attestation CHF symptoms improved. dc diuretic nephrology guideline directed medical therapy
--- NOTE | 2018-06-20 09:42 | ECG ---
Date Performed: 06/19/2018 Time Performed: 20:56:15 PTAGE: 67 years EKG: Sinus rhythm INTRAVENTRICULAR CONDUCTION DELAY LEFT AXIS DEVIATION ABNORMAL ECG Since PREVIOUS TRACING , no significant change noted PREVIOUS TRACIN06/19/2018 10.34 DOCTOR: Layo López Interpretating Date/Time 06/20/2018 09:41:14
--- NOTE | 2018-06-20 09:49 | P.CONNP ---
<Margoth Michel - Last Filed: 06/20/18 09:24> History of Present Illness Service: Nephrology Consult date: 06/20/18 Requesting Physician: Aundrea Good Reason for Consult: Acute on chronic kidney disease. Primary Care Provider: [facility] Chief Complaint: Shortness of breath History of Present Illness: Patient is a 67-year-old male with past medical history of hypertension, enlarged prostate with chronic indwelling Johnson catheter and chronic kidney disease followed by the [facility]. Presents to the emergency room with increasing shortness of breath and lower extremity edema. Nephrology is consulted for acute on chronic kidney disease with a creatinine of 3.37 on admission which has increased to 3.78 today. Potassium level is normal at 4.9 and HCO3 has improved at 21.5 today. Patient is followed by [facility] neph[facility] but has not been seen for over 6 months. He does not know what his baseline creatinine is but records from 10/06 he was noted to have a creatinine of 3.7. He is non oliguric and does not not any decrease in urinary output. He presented with shortness of breath which has resolved now, denies any chest pain, nausea, vomiting, or diarrhea. Does not take NSAIDS. PMFSH - History History Provided By: Patient - Medical History Medical History: Medical History (Last Updated 06/19/18 @ 13:46 by Александр Sanchez MD) Cocaine abuse Enlarged prostate Leg fracture, left Pneumonia - Family History Family History: Family History (Last Updated 06/19/18 @ 13:47 by Александр Sanchez MD) Other Hypertension Type 2 diabetes mellitus - Tobacco History Second Hand Smoke Exposure: No Tobacco Use In Past 30 Days: No Smoking Status: Former smoker Tobacco Type: Cigarettes - Alcohol History How Often Do You Have a Drink Containing Alcohol: Monthly or less - Substance Use History Substance History: No History of Abuse - Substance Use Type Crack/Cocaine Status: Active Route Used: Inhalation - Travel History Recent Travel in the [place] Within the Last 8 Weeks: No Recent Travel Out of the Country Within the Last 8 Weeks: No - Immunization History Tetanus Immunization: Never Vaccinated Hx Influenza Vaccine This Season: Yes Medications and Allergies Allergies Allergy/AdvReac Type Severity Reaction Status Date / Time No Known Allergies Allergy Verified 06/19/18 10:43 Home Medications Medication Instructions Recorded Confirmed Type aspirin 325 mg PO DAILY 06/19/18 06/19/18 History finasteride 5 mg PO DAILY 06/19/18 06/19/18 History hydralazine 50 mg PO TID 06/19/18 06/19/18 History multivitamin 1 tab PO DAILY 06/19/18 06/19/18 History nifedipine 60 mg PO DAILY 06/19/18 06/19/18 History Active Medications: Active Medications Acetaminophen (Tylenol) 650 mg PO Q4H PRN PRN Reason: Temp > 100.4 Al Hydroxide/Mg Hydroxide (Milk Of Nicky Lijessica) 30 ml PO Q12H PRN PRN Reason: Mild Constipation Aspirin (Ecotrin) 81 mg PO DAILY [facility] Last Admin: 06/20/18 08:33 Dose: 81 mg Enoxaparin Sodium (Lovenox Inj) 30 mg SQ Q24H [facility] Last Admin: 06/19/18 16:38 Dose: 30 mg Furosemide (Lasix Inj) 40 mg IV.PUSH BID@0900,1800 [facility] Last Admin: 06/20/18 08:33 Dose: 40 mg Ondansetron HCl (Zofran Inj) 4 mg IV.PUSH Q6H PRN PRN Reason: NAUSEA OR VOMITING Sennosides (Senokot) 17.2 mg PO Q12H PRN PRN Reason: Moderate Constipation Exam Vital signs: Vital Signs 06/19/18 10:25 06/19/18 11:21 06/19/18 11:35 Temperature 98.6 F Pulse Rate 86 80 87 Respiratory Rate 18 20 23 Blood Pressure 142/80 H Pulse Oximetry 94 L 06/19/18 11:42 06/19/18 13:39 06/19/18 19:00 Temperature Pulse Rate 84 86 Respiratory Rate 21 25 H Blood Pressure 148/70 H 146/70 H Pulse Oximetry 93 L 95 06/19/18 20:00 06/19/18 20:27 06/20/18 00:00 Temperature 98.4 F 97.8 F Pulse Rate 82 84 Respiratory Rate 20 18 Blood Pressure 148/68 H 132/69 Pulse Oximetry 96 98 99 06/20/18 04:00 06/20/18 08:00 Temperature 97.9 F Pulse Rate 61 62 Respiratory Rate 18 Blood Pressure 112/64 Pulse Oximetry 99 Intake & Output 06/19/18 06/20/18 06/20/18 18:59 06:59 18:59 Intake Total 1200 / 1200 Output Total 2500 / 2500 Balance -1300 / -1300 Weight 72.732 kg 68.7 kg Intake: Oral 1200 / 1200 Output: Urine 2500 / 2500 Other: Bladder Irrigation Fluid - Amount Drained Straight 2,000 # Bowel Movements 0 Weight On Admission 69.6 kg Narrative: GENERAL: Alert, oriented and cooperative. SKIN: Warm and dry. no rash noted HEAD: Atraumatic. Normocephalic. EYES: No scleral icterus. No injection or drainage. ENT: No nasal bleeding or discharge. Mucous membranes pink and moist. NECK: Trachea midline. No JVD. CARDIOVASCULAR: Regular rate and rhythm. No obvious murmur appreciated. RESPIRATORY: Diminished breath sounds. No use of accessory muscles. GASTROINTESTINAL: Abdomen soft, non-tender, nondistended. MUSCULOSKELETAL: No obvious deformities. No clubbing. No cyanosis. Trace bilateral hand edema. Results - Lab Results 06/20/18 04:37 06/20/18 04:37 Most recent lab results ABG pH 7.34 (7.380-7.420) L 06/19/18 10:56 ABG pCO2 29 mmHg (38-42) L 06/19/18 10:56 ABG pO2 53 mmHg (61-120) L* 06/19/18 10:56 ABG HCO3 15 mmol/L (22-26) L* 06/19/18 10:56 Calcium 8.4 mg/dL (8.5-10.1) L 06/20/18 04:37 - Image Kidney/bladder ultrasound: pending Assessment and Plan - Assessment (1) Acute kidney injury Code(s): N17.9 - Acute kidney failure, unspecified Status: Acute Plan: Possible Acute kidney injury with a creatinine of 3.78. Has chronic kidney disease with no recent baseline creatinine available. Per last admission in September, he had a creatinine at 3.7 so this could be at baseline. Urinalysis with proteinuria Plan Avoid nephrotoxins including IV contrast, NSAIDS, and aminoglycosides Will order renal ultrasound and serology. UA is abnormal, culture is pending Has proteinuria and would benefit from EZIO Or ARB but with possible increase in creatinine would hold for now. Maintain strict I+O Will order renal diet, low potassium Continue IV lasix Monitor urinary output and BMP (2) New onset of congestive heart failure Code(s): I50.9 - Heart failure, unspecified Status: Acute Plan: Cardiology consulted, ECHO is pending Shortness of breath has improved. <Katya Ulloa - Last Filed: 06/20/18 19:02> History of Present Illness Primary Care Provider: [facility] - Medical History Medical History: Medical History (Last Updated 06/19/18 @ 13:46 by Александр Sanchez MD) Cocaine abuse Enlarged prostate Leg fracture, left Pneumonia - Family History Family History: Family History (Last Updated 06/19/18 @ 13:47 by Александр Sanchez MD) Other Hypertension Type 2 diabetes mellitus Medications and Allergies Active Medications: Active Medications Acetaminophen (Tylenol) 650 mg PO Q4H PRN PRN Reason: Temp > 100.4 Al Hydroxide/Mg Hydroxide (Milk Of Nicky Henry) 30 ml PO Q12H PRN PRN Reason: Mild Constipation Aspirin (Ecotrin) 81 mg PO DAILY [facility] Last Admin: 06/20/18 08:33 Dose: 81 mg Enoxaparin Sodium (Lovenox Inj) 30 mg SQ Q24H [facility] Last Admin: 06/20/18 16:43 Dose: 30 mg Furosemide (Lasix Inj) 40 mg IV.PUSH BID@0900,1800 [facility] Last Admin: 06/20/18 17:37 Dose: 40 mg Ondansetron HCl (Zofran Inj) 4 mg IV.PUSH Q6H PRN PRN Reason: NAUSEA OR VOMITING Sennosides (Senokot) 17.2 mg PO Q12H PRN PRN Reason: Moderate Constipation Exam Vital signs: Vital Signs 06/19/18 20:00 06/19/18 20:27 06/20/18 00:00 Temperature 98.4 F 97.8 F Pulse Rate 82 84 Respiratory Rate 20 18 Blood Pressure 148/68 H 132/69 Pulse Oximetry 96 98 99 06/20/18 04:00 06/20/18 08:00 06/20/18 12:00 Temperature 97.9 F 98.1 F 98.2 F Pulse Rate 61 69 73 Respiratory Rate 18 20 20 Blood Pressure 112/64 139/76 138/77 Pulse Oximetry 99 100 99 06/20/18 16:00 Temperature 98.2 F Pulse Rate 75 Respiratory Rate 20 Blood Pressure 152/99 H Pulse Oximetry 100 Intake & Output 06/20/18 06/20/18 06/21/18 06:59 18:59 06:59 Intake Total 1200 / 1200 1040 / 1040 Output Total 2500 / 2500 3000 / 3000 Balance -1300 / -1300 -1960 / -1959 Weight 68.7 kg Intake: Oral 1200 / 1200 1040 / 1040 Output: Urine 2500 / 2500 3000 / 3000 Other: Bladder Irrigation Fluid - Amount Drained Straight 2,000 Date of Last Bowel Movement 06/18/18 # Bowel Movements 0 Weight On Admission 69.6 kg Results - Lab Results 06/20/18 04:37 06/20/18 04:37 Most recent lab results ABG pH 7.34 (7.380-7.420) L 06/19/18 10:56 ABG pCO2 29 mmHg (38-42) L 06/19/18 10:56 ABG pO2 53 mmHg (61-120) L* 06/19/18 10:56 ABG HCO3 15 mmol/L (22-26) L* 06/19/18 10:56 Calcium 8.4 mg/dL (8.5-10.1) L 06/20/18 04:37 Assessment and Plan - Assessment (1) Acute kidney injury Code(s): N17.9 - Acute kidney failure, unspecified Status: Acute (2) New onset of congestive heart failure Code(s): I50.9 - Heart failure, unspecified Status: Acute - Attending Attestation Patient seen and examined; records reviewed; agree with the plan and recommendations of the DAY CAMP COUNSELOR
--- NOTE | 2018-06-20 10:53 | US ---
EXAM DATE: 06/20/2018 10:43 AM EDT AGE/SEX: 67 years / Male INDICATIONS: Increased BUN/creatinine. CLINICAL DATA: This is the patient's subsequent encounter. Patient reports that signs and symptoms h ave been present for 1 day and indicates a pain score of 1/10. MEDICAL/SURGICAL HISTORY: Renal insufficiency, chronic. Congestive heart failure. Cocaine abus e. Enlarged prostate. Left leg fracture. Pneumonia. None. COMPARISON: [facility] [place], [place] KIDNEY/RENAL/BLADDER, 10/05/2017. . MEASUREMENTS: Right Kidney:__7.4 x 4.2 x 4.6 cm Left Kidney:__8.6 x 5.3 x 5.1 cm FINDINGS: The kidneys are small and echogenic. There is a cyst at the upper pole of the right kidney measuring 11 mm. There is mild left-sided hydronephrosis. A Johnson catheter is noted within the urinary bladder and there is diffuse circumferential bladder wall thickening identified. Maximal AP thickness of 1.5 cm is identified anteriorly. CONCLUSION: 1. Abnormal circumferential bladder wall thickening is noted. 2. Echogenic kidneys are noted bilaterally. 3. Renal cyst. 4. On left-sided hydronephrosis. Electronically signed by: Broderick Ennis MD 06/20/2018 10:52 AM EDT
--- NOTE | 2018-06-20 15:15 | ECHRPT ---
Indication: CARDIOMYOPATHY CONCLUSIONS The left ventricular systolic function is mildly reduced with an estimated ejection fraction in the range of 45- 50%. Mild concentric left ventricular hypertrophy. Doppler parameters are consistent with a pseudonormal left ventricular filling pattern with concomin ant abnormal relaxation and increased filling pressure (grade 2 diastolic dysfunction). There is global left ventricular dysfunction. Moderate mitral valve regurgitation. Trace aortic valve regurgitation. There is mild tricuspid valve regurgitation. A right sided pleural effusion is present. BP: / HR: Rhythm: Sinus MEASUREMENTS (Male / Female) Normal Values Technical Quality:Fair 2D ECHO LV Diastolic Diameter PLAX 4.2 cm 4.2 - 5.9 / 3.9 - 5.3 cm LV Systolic Diameter PLAX 3.9 cm IVS Diastolic Thickness 1.1 cm 0.6 - 1.0 / 0.6 - 0.9 cm LVPW Diastolic Thickness 1.1 cm 0.6 - 1.0 / 0.6 - 0.9 cm LV Relative Wall Thickness 0.5 RV Internal Dim ED PLAX 3.1 cm LVOT Diameter 1.9 cm Aortic Root Diameter 2.7 cm LA Systolic Diameter LX 3.7 cm 3.0 - 4.0 / 2.7 - 3.8 cm M-MODE AV Cusp Separation MM 1.9 cm DOPPLER AV Peak Velocity 232.0 cm/s AV Peak Gradient 21.5 mmHg AV Mean Gradient 11.0 mmHg AV Velocity Time Integral 45.9 cm LVOT Peak Velocity 120.0 cm/s LVOT Peak Gradient 5.8 mmHg LVOT Velocity Time Integral 24.6 cm AV Area Cont Eq vti 1.5 cm AV Area Cont Eq pk 1.5 cm Mitral E Point Velocity 113.5 cm/s Mitral A Point Velocity 58.2 cm/s Mitral E to A Ratio 2.0 LV E' Lateral Velocity 8.7 cm/s Mitral E to LV E' Lateral Ratio 13.1 LV E' Septal Velocity 4.2 cm/s Mitral E to LV E' Septal Ratio 27.1 TR Peak Velocity 270.0 cm/s TR Peak Gradient 29.2 mmHg Right Atrial Pressure 10.0 mmHg Pulmonary Artery Systolic Pressu 39.2 mmHg Right Ventricular Systolic Press 39.2 mmHg PV Peak Velocity 72.2 cm/s PV Peak Gradient 2.1 mmHg FINDINGS LEFT VENTRICLE Normal left ventricular size. Mild concentric left ventricular hypertrophy. The left ventricular systolic function is mildly reduced with an estimated ejection fraction in the range of 45- 50%. Doppler parameters are consistent with a pseudonormal left ventricular filling pattern with concomin ant abnormal relaxation and increased filling pressure (grade 2 diastolic dysfunction). There is global left ventricular dysfunction. RIGHT VENTRICLE The right ventricular size is normal. The right ventricular systoilc function is mildly decreased. LEFT ATRIUM The left atrial size is upper limits of normal. RIGHT ATRIUM The right atrial size is normal. ATRIAL SEPTUM No atrial level shunt is demonstrated by color flow Doppler interrogation. AORTA The aortic root and proximal ascending aorta are not well visualized. MITRAL VALVE Structurally normal mitral valve. Moderate mitral valve regurgitation. No mitral valve stenosis. AORTIC VALVE Aortic valve sclerosis is present. Trace aortic valve regurgitation. No aortic valve stenosis. TRICUSPID VALVE Structurally normal tricuspid valve. There is mild tricuspid valve regurgitation. The estimated pulmonary arterial pressure is 39.2 mmHg. PULMONARY VALVE No pulmonary valve regurgitation or stenosis. VESSELS The inferior vena cava is normal in size. PERICARDIUM No pericardial effusion. A right sided pleural effusion is present. Negrito Cruz DO (Electronically Signed) Final Date:20 June 2018 15:14
--- NOTE | 2018-06-20 15:21 | P.PNIM ---
Subjective Interval history: 67-year-old male admitted for combination of COPD and CHF exacerbations. He is breathing easier following 2 rounds of diuresis with IV Lasix. Physical Exam Vital signs: Vital Signs 06/19/18 19:00 06/19/18 20:00 06/19/18 20:27 Temperature 98.4 F Pulse Rate 86 82 Respiratory Rate 25 H 20 Blood Pressure 146/70 H 148/68 H Pulse Oximetry 95 96 98 06/20/18 00:00 06/20/18 04:00 06/20/18 08:00 Temperature 97.8 F 97.9 F 98.1 F Pulse Rate 84 61 69 Respiratory Rate 18 18 20 Blood Pressure 132/69 112/64 139/76 Pulse Oximetry 99 99 100 06/20/18 12:00 Temperature Pulse Rate 61 Respiratory Rate Blood Pressure Pulse Oximetry Intake & Output 06/19/18 06/20/18 06/20/18 18:59 06:59 18:59 Intake Total 1200 / 1200 Output Total 2500 / 2500 Balance -1300 / -1300 Weight 72.732 kg 68.7 kg Intake: Oral 1200 / 1200 Output: Urine 2500 / 2500 Other: Bladder Irrigation Fluid - Amount Drained Straight 2,000 Date of Last Bowel Movement 06/18/18 # Bowel Movements 0 Weight On Admission 69.6 kg Narrative: GENERAL: AAOx3, no acute distress, breathing improved SKIN: Warm and dry. No rashes HEAD: Atruamtic, normocephalic. EYES: No scleral icterus. No injection or drainage. ENT: Moist mucous membranes, patent nares, no erythema of oropharynx. NECK: Supple, trachea midline. No JVD or lymphadenopathy. Normal thyroid. CARDIOVASCULAR: Regular rate and rhythm. No murmurs, gallops, or rubs. RESPIRATORY: Bibasilar atelectasis, wheezing resolved. No accessory muscle use. GASTROINTESTINAL: Abdomen soft, non-tender, nondistended, normal active bowel sounds MUSCULOSKELETAL: No cyanosis, trace edema to ankles NEURO: CN II-XII grossly intact, no focal deficits, no slurring of speech - Urinary Catheter Management Straight Cath placed during this visit: no Reason for continuing: Chronic Urinary Retention Results - Labs CBC & Chem 7: 06/20/18 04:37 06/20/18 04:37 Laboratory Results - last 24 hr 06/19/18 06/20/18 06/20/18 11:20 00:30 04:37 WBC RBC Hgb Hct MCV MCH MCHC RDW Plt Count MPV Sodium Potassium Chloride Carbon Dioxide Anion Gap BUN Creatinine Estimated GFR Random Glucose Calcium Total Creatine Kinase 292 276 Troponin I 0.10 H 0.10 H TSH Urine Color Yellow Urine Clarity Cloudy H Urine pH 5.0 Ur Specific [place] 1.011 Urine Protein 100 H Urine Glucose (UA) Negative Urine Ketones Negative Urine Occult Blood Small H Urine Nitrate Negative Urine Bilirubin Negative Urine Urobilinogen Less than 2 Ur Leukocyte Esterase Large H Urine RBC 12 H Urine WBC Urine WBC Clumps Moderate H Ur Squamous Epith Cells <1 Urine Bacteria Many H Urine Mucus Few H Micro UA Comment Culture indicated Urine Culture Comments Culture indicated 06/20/18 06/20/18 04:37 04:37 WBC 8.9 RBC 4.20 L Hgb 12.2 L Hct 37.3 L MCV 88.7 MCH 29.0 MCHC 32.7 RDW 17.0 Plt Count 141 L MPV 8.8 Sodium 145 Potassium 4.9 Chloride 114 H Carbon Dioxide 21.5 Anion Gap 10 BUN 45 H Creatinine 3.78 H Estimated GFR 19 L Random Glucose 121 H Calcium 8.4 L Total Creatine Kinase Troponin I TSH 0.826 Urine Color Urine Clarity Urine pH Ur Specific [place] Urine Protein Urine Glucose (UA) Urine Ketones Urine Occult Blood Urine Nitrate Urine Bilirubin Urine Urobilinogen Ur Leukocyte Esterase Urine RBC Urine WBC Urine WBC Clumps Ur Squamous Epith Cells Urine Bacteria Urine Mucus Micro UA Comment Urine Culture Comments Microbiology 06/19/18 11:20 Clean Catch Urine Urine Culture - Preliminary gram negative rods 06/19/18 10:40 Blood - Peripheral Aerobic Blood Culture - Preliminary No growth in 1 day 06/19/18 10:40 Blood - Peripheral Anaerobic Blood Culture - Preliminary No growth in 1 day 06/19/18 10:50 Blood - Peripheral Aerobic Blood Culture - Preliminary No growth in 1 day 06/19/18 10:50 Blood - Peripheral Anaerobic Blood Culture - Preliminary No growth in 1 day - Imaging Impressions Abdomen/Bladder Ultrasound 06/20/18 00:00 The kidneys are small and echogenic. There is a cyst at the upper pole of the right kidney measuring 11 mm. There is mild left-sided hydronephrosis. A Johnson catheter is noted within the urinary bladder and there is diffuse circumferential bladder wall thickening identified. Maximal AP thickness of 1.5 cm is identified anteriorly. CONCLUSION: 1. Abnormal circumferential bladder wall thickening is noted. 2. Echogenic kidneys are noted bilaterally. 3. Renal cyst. 4. On left-sided hydronephrosis. Assessment and Plan - Plan New onset CHF Echocardiogram shows ejection fraction of 45-50% Patient has a history of hypertension and a previous history of cocaine abuse, long-standing tobacco use Continue with Lasix for 1 more day Troponin levels remained stable indicating cardiac strain from hypoxemia related COPD exacerbation Continue oxygen Appreciate cardiology consult Chronic versus acute renal impairment Creatinine went from 3.362 3.78 We will stop diuresis tomorrow Renal ultrasound and serology are pending Appreciate nephrology consult Hypertension Well-controlled today Continue holding BP meds due to diuresis DVT Prophylaxis Lovenox
[2018-06-20] MEDS: Enoxaparin Inj 30 MG/0.3 ML Syringe SQ SCH (16:43)
[2018-06-21 07:11] LABS: Hematocrit 37.2 % (39.0-51.0); Hemoglobin 12.3 gm/dL (13.0-17.0); Mean Corpuscular HGB Conc 33.1 % (32.0-36.0); Mean Corpuscular Hemoglobin 28.9 pg (27.0-34.0); Mean Corpuscular Volume 87.3 fL (80.0-100.0); Mean Platelet Volume 8.8 fL (7.0-11.0); Platelet Count 150 th/mm3 (150-450); Red Blood Count 4.26 mil/mm3 (4.50-5.90); Red Cell Distribution Width 16.8 % (11.6-17.2); White Blood Count 6.1 th/mm3 (4.0-11.0)
[2018-06-21 07:12] LABS: Baso % (Auto) 0.5 % (0.0-2.0); Eos # (Auto) 0.2 th/mm3 (0.0-0.4); Eos % (Auto) 3.9 % (0.0-4.0); Hematocrit 37.5 % (39.0-51.0); Hemoglobin 12.2 gm/dL (13.0-17.0); Lymph # (Auto) 1.5 th/mm3 (1.0-4.8); Mean Corpuscular HGB Conc 32.6 % (32.0-36.0); Mean Corpuscular Hemoglobin 28.5 pg (27.0-34.0); Mean Corpuscular Volume 87.4 fL (80.0-100.0); Mean Platelet Volume 8.7 fL (7.0-11.0); Mono # (Auto) 0.5 th/mm3 (0.0-0.9); Mono % (Auto) 7.8 % (0.0-8.0); Neut # (Auto) 3.8 th/mm3 (1.8-7.7); Neut % (Auto) 62.8 % (16.0-70.0); Platelet Count 145 th/mm3 (150-450); Red Blood Count 4.29 mil/mm3 (4.50-5.90); Red Cell Distribution Width 17.1 % (11.6-17.2); White Blood Count 6.1 th/mm3 (4.0-11.0)
[2018-06-21 07:39] LABS: Albumin 2.6 g/dL (3.4-5.0); Calcium 7.9 mg/dL (8.5-10.1); Carbon Dioxide 24.8 meq/L (21.0-32.0); Phosphorus 3.1 mg/dL (2.5-4.9); Potassium 4.7 meq/L (3.5-5.1)
--- NOTE | 2018-06-21 14:55 | P.PNCA ---
Subjective Interval history: feeling much better Physical Exam Vital signs: Vital Signs 06/20/18 16:00 06/20/18 20:00 06/20/18 23:40 Temperature 98.2 F 98.2 F Pulse Rate 75 75 69 Respiratory Rate 20 18 Blood Pressure 152/99 H 132/89 Pulse Oximetry 100 97 06/21/18 00:00 06/21/18 04:00 06/21/18 08:00 Temperature 98.1 F 98.2 F 98 F Pulse Rate 64 60 62 Respiratory Rate 18 18 18 Blood Pressure 135/75 122/72 131/76 Pulse Oximetry 96 100 99 06/21/18 09:40 Temperature Pulse Rate Respiratory Rate Blood Pressure Pulse Oximetry 99 Intake & Output 06/20/18 06/21/18 06/21/18 18:59 06:59 18:59 Intake Total 1040 / 1040 240 / 240 Output Total 3000 / 3000 3675 / 3675 Balance -1960 / -1960 -3435 / -3435 Weight 70.7 kg Intake: Oral 1040 / 1040 240 / 240 Output: Urine 3000 / 3000 3675 / 3675 Other: Date of Last Bowel Movement 06/18/18 06/18/18 # Bowel Movements 0 - Constitutional no acute distress - Routine HEENT Exam Head: Present: normocephalic, atraumatic Eye: Present: EOMI, PERRL ENT: Present: mucous membranes moist - Routine Neck Exam Present: supple, full ROM. Absent: JVD, carotid bruit - Routine Respiratory Exam Present: CTA bilaterally - Routine Cardiovascular Exam Present: RRR, S1, S2, murmur (apical systolic murmur) - Routine Abdominal Exam Present: soft, normoactive bowel sounds - Routine Extremities Exam Present: normal capillary refill. Absent: edema - Routine Skin Exam Present: intact - Routine Neurological Exam Present: alert, oriented X3, CN II-XII intact - Urinary Catheter Management Straight Cath placed during this visit: no Reason for continuing: Chronic Urinary Retention Assessment and Plan - Assessment (1) [id number] renal failure Code(s): N17.9 - Acute kidney failure, unspecified; N18.9 - Chronic kidney disease, unspecified Status: Acute (2) New onset of congestive heart failure Code(s): I50.9 - Heart failure, unspecified Status: Acute - Plan 67 yo AAM with HTN and CKD admitted for progressive SOB, edema and hypoxia. 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 CHF-Echo 06/20/18 LVEF 45-50%, diastolic dysfunction, moderate MR. Patient's troponin is also mildly elevated. Will consider an ischemic workup likely with Lexiscan. acute on chronic kidney disease- creatinine elevated, 3.78. remains on IV lasix 40mg BID avoid ACEi/Arb I am following patient for DR. Eladia Nieves until 06/24/18.
--- NOTE | 2018-06-21 16:22 | P.PNNP ---
Subjective Interval history: No acute complaints Physical Exam Vital signs: Vital Signs 06/20/18 20:00 06/20/18 23:40 06/21/18 00:00 Temperature 98.2 F 98.1 F Pulse Rate 75 69 64 Respiratory Rate 18 18 Blood Pressure 132/89 135/75 Pulse Oximetry 97 96 Pulse Oximetry [Exertion on Room Air] Pulse Oximetry [Resting on Room Air] 06/21/18 04:00 06/21/18 08:00 06/21/18 09:40 Temperature 98.2 F 98 F Pulse Rate 60 62 Respiratory Rate 18 18 Blood Pressure 122/72 131/76 Pulse Oximetry 100 99 99 Pulse Oximetry [Exertion on Room Air] Pulse Oximetry [Resting on Room Air] 06/21/18 12:00 06/21/18 16:11 Temperature 97.8 F Pulse Rate 63 Respiratory Rate 18 Blood Pressure 126/73 Pulse Oximetry 96 Pulse Oximetry [Exertion on Room Air] 97 Pulse Oximetry [Resting on Room Air] 98 Intake & Output 06/20/18 06/21/18 06/21/18 18:59 06:59 18:59 Intake Total 1040 / 1040 240 / 240 Output Total 3000 / 3000 3675 / 3675 Balance -1960 / -1960 -3435 / -3435 Weight 70.7 kg Intake: Oral 1040 / 1040 240 / 240 Output: Urine 3000 / 3000 3675 / 3675 Other: Date of Last Bowel Movement 06/18/18 06/18/18 # Bowel Movements 0 - Constitutional no acute distress - Routine Neck Exam Present: supple - Routine Respiratory Exam Present: CTA bilaterally - Routine Cardiovascular Exam Present: RRR - Routine Abdominal Exam Present: soft - Routine Skin Exam Present: intact - Routine Neurological Exam Present: alert, oriented X3 - Detailed Neurological Exam: Coma Scale Eye Opening: Spontaneous - Routine Psychiatric Exam Present: normal affect - Urinary Catheter Management Straight Cath placed during this visit: no Reason for continuing: Chronic Urinary Retention Assessment and Plan - Assessment (1) Acute kidney injury Code(s): N17.9 - Acute kidney failure, unspecified Status: Acute Plan: Possible Acute kidney injury with a creatinine of 3.78. Creatinine improved slightly to 3.5 today Has chronic kidney disease with no recent baseline creatinine available. Per last admission in September, he had a creatinine at 3.7 so this could be at baseline. Urinalysis with proteinuria Chronic indwelling [place] catheter with BPH - Follows closely with [place] urology Plan Continue Lasix - 6.6L diuresis Creatinine stable, may be near baseline. Avoid nephrotoxins including IV contrast, NSAIDS, and aminoglycosides Renal ultrasound with mild left sided hydronephrosis and bladder thickeining. Patient closely follows with [place] - may follow with outpatient [place] urology. Good UOP at this time. E. coli and klebsiella in urine culture - follow with primary team. Asymptomatic with chronic indwelling k[place] Has proteinuria and would benefit from EZIO Or ARB but with possible increase in creatinine would hold for now. Maintain strict I+O renal diet, low potassium Continue IV lasix Monitor urinary output and BMP (2) New onset of congestive heart failure Code(s): I50.9 - Heart failure, unspecified Status: Acute Plan: Cardiology consulted, ECHO is pending Shortness of breath has improved.
[2018-06-21] MEDS: Enoxaparin Inj 30 MG/0.3 ML Syringe SQ SCH (16:48)
--- NOTE | 2018-06-21 17:22 | P.PNIM ---
Subjective Interval history: Patient is resting comfortably today, he states he is near his baseline, but still admits to feeling weak. His breathing is comfortable. Physical Exam Vital signs: Vital Signs 06/20/18 20:00 06/20/18 23:40 06/21/18 00:00 Temperature 98.2 F 98.1 F Pulse Rate 75 69 64 Respiratory Rate 18 18 Blood Pressure 132/89 135/75 Pulse Oximetry 97 96 Pulse Oximetry [Exertion on Room Air] Pulse Oximetry [Resting on Room Air] 06/21/18 04:00 06/21/18 08:00 06/21/18 09:40 Temperature 98.2 F 98 F Pulse Rate 60 62 Respiratory Rate 18 18 Blood Pressure 122/72 131/76 Pulse Oximetry 100 99 99 Pulse Oximetry [Exertion on Room Air] Pulse Oximetry [Resting on Room Air] 06/21/18 12:00 06/21/18 16:11 Temperature 97.8 F Pulse Rate 63 Respiratory Rate 18 Blood Pressure 126/73 Pulse Oximetry 96 Pulse Oximetry [Exertion on Room Air] 97 Pulse Oximetry [Resting on Room Air] 98 Intake & Output 06/20/18 06/21/18 06/21/18 18:59 06:59 18:59 Intake Total 1040 / 1040 240 / 240 Output Total 3000 / 3000 3675 / 3675 Balance -1960 / -1960 -3435 / -3435 Weight 70.7 kg Intake: Oral 1040 / 1040 240 / 240 Output: Urine 3000 / 3000 3675 / 3675 Other: Date of Last Bowel Movement 06/18/18 06/18/18 # Bowel Movements 0 Narrative: GENERAL: AAOx3, no acute distress, SKIN: Warm and dry. No rashes HEAD: Atruamtic, normocephalic. EYES: No scleral icterus. No injection or drainage. ENT: Moist mucous membranes, patent nares, no erythema of oropharynx. NECK: Supple, trachea midline. No JVD or lymphadenopathy. Normal thyroid. CARDIOVASCULAR: Regular rate and rhythm. No murmurs, gallops, or rubs. RESPIRATORY: Wheezing resolved, lung [place] are mostly clear now. No accessory muscle use. GASTROINTESTINAL: Abdomen soft, non-tender, nondistended, normal active bowel sounds MUSCULOSKELETAL: No cyanosis, edema resolved NEURO: CN II-XII grossly intact, no focal deficits, no slurring of speech - Urinary Catheter Management Straight Cath placed during this visit: no Reason for continuing: Chronic Urinary Retention Results - Labs CBC & Chem 7: 06/21/18 06:48 06/21/18 06:48 Laboratory Results - last 24 hr 06/21/1818 06/21/18 06:48 06:48 06:48 WBC 6.1 6.1 RBC 4.29 L 4.26 L Hgb 12.2 L 12.3 L Hct 37.5 L 37.2 L MCV 87.4 87.3 MCH 28.5 28.9 MCHC 32.6 33.1 RDW 17.1 16.8 Plt Count 145 L 150 MPV 8.7 8.8 Neut % (Auto) 62.8 Lymph % (Auto) 25.0 [place] % (Auto) 7.8 Eos % (Auto) 3.9 Baso % (Auto) 0.5 Neut # (Auto) 3.8 Lymph # (Auto) 1.5 [place] # (Auto) 0.5 Eos # (Auto) 0.2 Baso # (Auto) 0.0 WBC Differential . Differential Comment Auto diff final Sodium 145 Potassium 4.7 Chloride 110 H Carbon Dioxide 24.8 Anion Gap 10 BUN 43 H Creatinine 3.54 H Estimated GFR 21 L Random Glucose 83 Calcium 7.9 L Phosphorus 3.1 Albumin 2.6 L Complement C3 86 L Complement C4 25 Microbiology 06/19/18 10:40 Blood - Peripheral Aerobic Blood Culture - Preliminary No growth in 2 days 06/19/18 10:40 Blood - Peripheral Anaerobic Blood Culture - Preliminary No growth in 2 days 06/19/18 10:50 Blood - Peripheral Aerobic Blood Culture - Preliminary No growth in 2 days 06/19/18 10:50 Blood - Peripheral Anaerobic Blood Culture - Preliminary No growth in 2 days 06/19/18 11:20 Clean Catch Urine Urine Culture - Final Klebsiella pneumoniae Escherichia coli Assessment and Plan - Plan New onset CHF Echocardiogram shows ejection fraction of 45-50% Patient has a history of hypertension and a previous history of cocaine abuse, long-standing tobacco use Troponin levels remained stable indicating cardiac strain from hypoxemia related COPD exacerbation Patient tolerated oxygen walk test today, 97% with exertion Cardiology considering Lexiscan stress test Appreciate cardiology consult Chronic versus acute renal impairment Creatinine went from 3.36 to 3.78 Left-sided hydronephrosis on ultrasound Appreciate nephrology consult Follow creatinine with tomorrow's a.m. labs Hypertension Well-controlled DVT Prophylaxis Lovenox Discharge planning We will discharge home when cleared by cardiology, likely following Lexiscan stress test
[2018-06-22 05:55] LABS: Hematocrit 36.8 % (39.0-51.0); Hemoglobin 12.2 gm/dL (13.0-17.0); Mean Corpuscular HGB Conc 33.3 % (32.0-36.0); Mean Corpuscular Volume 86.9 fL (80.0-100.0); Mean Platelet Volume 9.1 fL (7.0-11.0); Platelet Count 157 th/mm3 (150-450); Red Blood Count 4.23 mil/mm3 (4.50-5.90); Red Cell Distribution Width 16.7 % (11.6-17.2); White Blood Count 6.9 th/mm3 (4.0-11.0)
[2018-06-22 06:24] LABS: Alanine Aminotransferase 27 U/L (12-78); Albumin 2.5 g/dL (3.4-5.0); Alkaline Phosphatase 93 U/L (45-117); Anion Gap 8 meq/L (5-15); Aspartate Aminotransferase 17 U/L (15-37); Blood Urea Nitrogen 60 mg/dL (7-18); Calcium 7.7 mg/dL (8.5-10.1); Carbon Dioxide 26.5 meq/L (21.0-32.0); Chloride 108 meq/L (98-107); Glomerular Filtration Rate 19 mL/min (>89); Glucose,Random 94 mg/dL (74-106); Potassium 4.6 meq/L (3.5-5.1); Sodium 142 meq/L (136-145); Total Protein 6.2 g/dL (6.4-8.2)
[2018-06-22] MEDS ORDERED: Regadenoson Inj 0.4 MG/5 ML Syringe IV.PUSH ONE (14:53)
--- NOTE | 2018-06-22 15:13 | P.PNNP ---
Subjective Interval history: No acute complaints Physical Exam Vital signs: Vital Signs 06/21/18 16:00 06/21/18 16:11 06/21/18 19:30 Temperature 98.3 F Pulse Rate 86 95 H Respiratory Rate 18 Blood Pressure 138/60 Pulse Oximetry 96 Pulse Oximetry [Exertion on Room Air] 97 Pulse Oximetry [Resting on Room Air] 98 06/21/18 20:00 06/22/18 00:00 06/22/18 04:00 Temperature 98.1 F 98.3 F 98.0 F Pulse Rate 88 83 62 Respiratory Rate 19 19 18 Blood Pressure 107/61 114/60 120/65 Pulse Oximetry 96 94 L 97 Pulse Oximetry [Exertion on Room Air] Pulse Oximetry [Resting on Room Air] 06/22/18 08:00 06/22/18 08:37 06/22/18 12:00 Temperature 97.7 F 97.6 F Pulse Rate 63 61 Respiratory Rate 18 18 Blood Pressure 116/64 131/74 Pulse Oximetry 96 97 98 Pulse Oximetry [Exertion on Room Air] Pulse Oximetry [Resting on Room Air] Intake & Output 06/21/18 06/22/18 06/22/18 18:59 06:59 18:59 Intake Total 960 / 960 240 / 240 Output Total 3000 / 3000 700 / 700 Balance -2040 / -2040 -460 / -460 Weight 67 kg Intake: Oral 960 / 960 240 / 240 Output: Urine 3000 / 3000 700 / 700 Other: Date of Last Bowel Movement 06/18/18 - Constitutional no acute distress - Routine HEENT Exam Head: Present: normocephalic Eye: Present: EOMI ENT: Present: mucous membranes moist - Routine Neck Exam Present: supple - Routine Respiratory Exam Present: diminished air movement - Routine Cardiovascular Exam Present: RRR - Routine Abdominal Exam Present: soft - Routine Skin Exam Present: intact - Routine Neurological Exam Present: alert, oriented X3 - Detailed Neurological Exam: Coma Scale Eye Opening: Spontaneous - Routine Psychiatric Exam Present: normal affect - Urinary Catheter Management Straight Cath placed during this visit: no Reason for continuing: Chronic Urinary Retention Assessment and Plan - Assessment (1) Acute kidney injury Code(s): N17.9 - Acute kidney failure, unspecified Status: Acute Plan: Possible Acute kidney injury with a creatinine of 3.78. Creatinine 3.7 -> 3.5 -> 3.8 Has chronic kidney disease with no recent baseline creatinine available. Per last admission in September, he had a creatinine at 3.7 so this could be at baseline. Urinalysis with proteinuria Chronic indwelling [place] catheter with BPH - Follows closely with [place] urology Plan Continue Lasix - 6.6L diuresis Saturday, 3.7L UOP/24 hours Creatinine stable, may be near baseline. Avoid nephrotoxins including IV contrast, NSAIDS, and aminoglycosides Renal ultrasound with mild left sided hydronephrosis and bladder thickeining. Patient closely follows with [place] - may follow with outpatient [place] urology. Good UOP at this time. E. coli and klebsiella in urine culture - follow with primary team. Asymptomatic with chronic indwelling [place] Has proteinuria and would benefit from EZIO Or ARB but with possible increase in creatinine would hold for now. Maintain strict I+O renal diet, low potassium Continue IV lasix Monitor urinary output and BMP (2) New onset of congestive heart failure Code(s): I50.9 - Heart failure, unspecified Status: Acute Plan: Cardiology consulted, Lexiscan stress test pending Shortness of breath has improved.
[2018-06-22] MEDS: Enoxaparin Inj 30 MG/0.3 ML Syringe SQ SCH (15:40)
--- NOTE | 2018-06-22 15:46 | NM ---
EXAM DATE: 06/22/2018 3:40 PM EDT AGE/SEX: 67 years / Male INDICATIONS:Congestive heart failure. . Dyspnea. CLINICAL DATA: This is the patient's initial encounter. Patient reports that signs and symptoms have been present for 1 day and indicates a pain score of 0/10. MEDICAL/SURGICAL HISTORY: Renal failure, acute. Cocaine abuse. Pneumonia. None. COMPARISON: [facility] [place], MYOCARDIAL PERF PHARM SPECT, 07/29/2015. . DOSE: 8.4 mCi Tc 99m Myoview at rest 26.3 mCi [id number] at stress 0.4 mg Lexiscan STRESS SYMPTOMS: Nausea. EJECTION FRACTION: 50 % TECHNIQUE: The patient underwent pharmacologic stress with infusion of prescribed dose. Continuous ECG tracing was monitored during stress. Gated SPECT imaging was performed after stress and conventi onal SPECT imaging was performed at rest. The examination was performed on a SPECT/CT scanner, both attenuation and non-corrected datasets were reviewed. FINDINGS: Distribution: The maximum perfused segment at stress is in the anterolateral wall. Perfusion Study: The pattern of perfusion at stress is within normal limits. Gated Study: There are intact wall motion and wall thickening without hypokinetic or dyskinetic segm ents. The ejection fraction is calculated at 50%. RISK CATEGORY: Low (<1% Annual Motality Rate) CONCLUSION: 1. Unremarkable study. Electronically signed by: Misbah Cheng MD 06/22/2018 3:44 PM EDT
--- NOTE | 2018-06-22 16:20 | P.PNIM ---
Subjective Interval history: Patient was n.p.o. for stress test this morning. We are now awaiting stress test results. His diet has been resumed. Physical Exam Vital signs: Vital Signs 06/21/18 19:30 06/21/18 20:00 06/22/18 00:00 Temperature 98.1 F 98.3 F Pulse Rate 95 H 88 83 Respiratory Rate 19 19 Blood Pressure 107/61 114/60 Pulse Oximetry 96 94 L 06/22/18 04:00 06/22/18 08:00 06/22/18 08:37 Temperature 98.0 F 97.7 F Pulse Rate 62 63 Respiratory Rate 18 18 Blood Pressure 120/65 116/64 Pulse Oximetry 97 96 97 06/22/18 12:00 Temperature 97.6 F Pulse Rate 61 Respiratory Rate 18 Blood Pressure 131/74 Pulse Oximetry 98 Intake & Output 06/21/18 06/22/18 06/22/18 18:59 06:59 18:59 Intake Total 960 / 960 240 / 240 Output Total 3000 / 3000 700 / 700 Balance -2040 / -2040 -460 / -460 Weight 67 kg Intake: Oral 960 / 960 240 / 240 Output: Urine 3000 / 3000 700 / 700 Other: Date of Last Bowel Movement 06/18/18 Narrative: GENERAL: AAOx3, no acute distress, SKIN: Warm and dry. No rashes HEAD: Atruamtic, normocephalic. EYES: No scleral icterus. No injection or drainage. ENT: Moist mucous membranes, patent nares, no erythema of oropharynx. NECK: Supple, trachea midline. No JVD or lymphadenopathy. Normal thyroid. CARDIOVASCULAR: Regular rate and rhythm. No murmurs, gallops, or rubs. RESPIRATORY: Wheezing resolved, lung [place] are mostly clear now. No accessory muscle use. GASTROINTESTINAL: Abdomen soft, non-tender, nondistended, normal active bowel sounds MUSCULOSKELETAL: No cyanosis, edema resolved NEURO: CN II-XII grossly intact, no focal deficits, no slurring of speech - Urinary Catheter Management Straight Cath placed during this visit: no Reason for continuing: Chronic Urinary Retention Results - Labs CBC & Chem 7: 06/22/18 04:25 06/22/18 04:25 Laboratory Results - last 24 hr 06/22/18 06/22/18 04:25 04:25 WBC 6.9 RBC 4.23 L Hgb 12.2 L Hct 36.8 L MCV 86.9 MCH 29.0 MCHC 33.3 RDW 16.7 Plt Count 157 MPV 9.1 Sodium 142 Potassium 4.6 Chloride 108 H Carbon Dioxide 26.5 Anion Gap 8 BUN 60 H Creatinine 3.84 H Estimated GFR 19 L Random Glucose 94 Calcium 7.7 L Total Bilirubin 0.2 AST 17 ALT 27 Alkaline Phosphatase 93 Total Protein 6.2 L Albumin 2.5 L Microbiology 06/19/18 10:40 Blood - Peripheral Aerobic Blood Culture - Preliminary No growth in 3 days 06/19/18 10:40 Blood - Peripheral Anaerobic Blood Culture - Preliminary No growth in 3 days 06/19/18 10:50 Blood - Peripheral Aerobic Blood Culture - Preliminary No growth in 3 days 06/19/18 10:50 Blood - Peripheral Anaerobic Blood Culture - Preliminary No growth in 3 days - Imaging Impressions Myocardial Perfusion Scan Nuc Med 06/22/18 00:00 CONCLUSION: 1. Unremarkable study. Assessment and Plan - Plan New onset CHF Echocardiogram shows ejection fraction of 45-50% Patient has a history of hypertension and a previous history of cocaine abuse, long-standing tobacco use Troponin levels remained stable indicating cardiac strain from hypoxemia related COPD exacerbation Patient tolerated oxygen walk test, 97% with exertion Cardiology recommended stress testing, results pending Appreciate cardiology consult Chronic versus acute renal impairment Creatinine stable in the threes Left-sided hydronephrosis on ultrasound Appreciate nephrology consult Continue following creatinine with tomorrow's a.m. labs Hypertension Well-controlled DVT Prophylaxis Lovenox Discharge planning If stress testing is negative patient may be discharged home, results pending
--- NOTE | 2018-06-22 17:04 | P.PNCA ---
Subjective Interval history: No new event. Physical Exam Vital signs: Vital Signs 06/21/18 19:30 06/21/18 20:00 06/22/18 00:00 Temperature 98.1 F 98.3 F Pulse Rate 95 H 88 83 Respiratory Rate 19 19 Blood Pressure 107/61 114/60 Pulse Oximetry 96 94 L 06/22/18 04:00 06/22/18 08:00 06/22/18 08:37 Temperature 98.0 F 97.7 F Pulse Rate 62 63 Respiratory Rate 18 18 Blood Pressure 120/65 116/64 Pulse Oximetry 97 96 97 06/22/18 12:00 06/22/18 16:00 Temperature 97.6 F 97.6 F Pulse Rate 61 60 Respiratory Rate 18 18 Blood Pressure 131/74 127/61 Pulse Oximetry 98 98 Intake & Output 06/21/18 06/22/18 06/22/18 18:59 06:59 18:59 Intake Total 960 / 960 240 / 240 Output Total 3000 / 3000 700 / 700 Balance -2040 / -2040 -460 / -460 Weight 67 kg Intake: Oral 960 / 960 240 / 240 Output: Urine 3000 / 3000 700 / 700 Other: Date of Last Bowel Movement 06/18/18 - Constitutional no acute distress - Routine HEENT Exam Head: Present: normocephalic, atraumatic - Routine Neck Exam Present: supple, full ROM. Absent: JVD, carotid bruit - Routine Respiratory Exam Present: CTA bilaterally - Routine Cardiovascular Exam Present: RRR, S1, S2 - Routine Abdominal Exam Present: soft, normoactive bowel sounds - Routine Extremities Exam Present: normal capillary refill - Routine Skin Exam Present: intact - Routine Neurological Exam Present: alert, oriented X3 - Routine Psychiatric Exam Present: normal affect - Urinary Catheter Management Straight Cath placed during this visit: no Reason for continuing: Chronic Urinary Retention Assessment and Plan - Assessment (1) Hexat-oy-xxisnzz renal failure Code(s): N17.9 - Acute kidney failure, unspecified; N18.9 - Chronic kidney disease, unspecified Status: Acute (2) New onset of congestive heart failure Code(s): I50.9 - Heart failure, unspecified Status: Acute - Plan 67 yo AAM with HTN and CKD admitted for progressive SOB, edema and hypoxia. 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 CHF-Echo 06/20/18 LVEF 45-50%, diastolic dysfunction, moderate MR. Patient's troponin is also mildly elevated. 06/22/18 Lexiscan nuclear stress test showed no ischemia, LVEF 50% acute on chronic kidney disease- creatinine elevated, 3.78. remains on IV lasix 40mg BID avoid ACEi/Arb I am following patient for DR. Eladia Nieves until 06/24/18.
[2018-06-23 07:38] LABS: Hematocrit 37.8 % (39.0-51.0); Hemoglobin 12.5 gm/dL (13.0-17.0); Mean Corpuscular HGB Conc 33.1 % (32.0-36.0); Mean Corpuscular Hemoglobin 28.9 pg (27.0-34.0); Mean Corpuscular Volume 87.2 fL (80.0-100.0); Mean Platelet Volume 9.3 fL (7.0-11.0); Platelet Count 171 th/mm3 (150-450); Red Blood Count 4.33 mil/mm3 (4.50-5.90); Red Cell Distribution Width 16.7 % (11.6-17.2); White Blood Count 5.7 th/mm3 (4.0-11.0)
[2018-06-23 07:56] LABS: Alanine Aminotransferase 25 U/L (12-78); Albumin 2.5 g/dL (3.4-5.0); Anion Gap 6 meq/L (5-15); Aspartate Aminotransferase 15 U/L (15-37); Blood Urea Nitrogen 53 mg/dL (7-18); Calcium 7.9 mg/dL (8.5-10.1); Carbon Dioxide 26.4 meq/L (21.0-32.0); Chloride 110 meq/L (98-107); Glomerular Filtration Rate 24 mL/min (>89); Glucose,Random 110 mg/dL (74-106); Potassium 4.3 meq/L (3.5-5.1); Sodium 142 meq/L (136-145)
[2018-06-23 07:59] LABS: Alkaline Phosphatase 78 U/L (45-117); Total Protein 6.1 g/dL (6.4-8.2)
--- NOTE | 2018-06-23 08:29 | P.DCO ---
- Home Health Nursing Order: Medical education, Signs/symptoms of disease process, CHF education, Nursing assessment with vital signs, Johnson catheter maintenance - Certification I have seen patient Rizwan Saul on 06/23/18. My clinical findings support the need for the requested home health care services because: Limited mobility due to disease progression, Deconditioned with increased weakness, Limited ability to care for self I certify that my clinical findings support that this patient is homebound because: Unsafe to leave home unassisted, Unable to use public transportation, Poor cardiac reserve
--- NOTE | 2018-06-23 08:36 | P.DS ---
Date of admission: 06/19/18 12:42 Primary care physician: 's [facility] Brief History from admission: 67-year-old male with a history of hypertension presents with what appears to be a CHF exacerbation. He has thus far undiagnosed with CHF describes a history of gradual fluid accumulation in his lower extremities over the last 2 weeks associated with intermittent shortness of breath, quotes good days and bad days". When he awoke this morning symptoms of shortness of breath were severe and he was unable to breathe so eventually he called 911 and was transported to the emergency room. On arrival his oxygenation was 82%, initial troponin was 0.11. He admits to smoking one half a pack of tobacco per day. He denies any nausea vomiting or diarrhea. Denies any dysuria, foul-smelling urine, reduced urine output. DS: Medications - Discharge Medications Prescriptions: furosemide 20 mg PO DAILY PRN 30 Days #30 tab PRN Reason: Edema DS: Summary Hospital Course: 67-year-old male who was admitted for new onset CHF, echocardiogram revealed an ejection fraction of 45-50%. Patient was treated for ankle edema and shortness of breath with diuresis. Cardiology evaluated patient and recommended nuclear medicine perfusion scan, patient had no abnormalities on his scan. He is feeling near his baseline and appropriate for discharge. Giving him Lasix on an as-needed basis since this ankle swelling is not common for him. On review of his medications his bradycardia episodes are unsafe for addition of beta- marycarmen, but he may benefit from an EZIO inhibitor rather than hydralazine given ankle swelling and no knowledge of congestive heart failure. He has a follow- up scheduled soon with nephrology who he sees on an outpatient basis for his chronically elevated creatinine level. He is cleared for discharge today. - Time Spent with Patient Total time spent providing and/or coordinating discharge services: Less than 30 minutes - Quality: VTE Deep Vein Thrombosis/Pulmonary Embolism Present on Admission: No Exam Vital signs: Vital Signs 06/22/18 08:37 06/22/18 12:00 06/22/18 16:00 Temperature 97.6 F 97.6 F Pulse Rate 61 63 Respiratory Rate 18 18 Blood Pressure 131/74 127/61 Pulse Oximetry 97 98 98 06/22/18 20:00 06/23/18 00:00 06/23/18 04:00 Temperature 98 F 98.2 F 97.7 F Pulse Rate 80 62 52 L Respiratory Rate 17 15 15 Blood Pressure 110/62 134/69 128/64 Pulse Oximetry 97 94 L 98 Intake & Output 06/22/18 06/23/18 06/23/18 18:59 06:59 18:59 Intake Total 240 / 240 480 / 480 Output Total 1450 / 1450 1550 / 1550 Balance -1210 / -1210 -1070 / -1070 Weight 67.8 kg Intake: Oral 240 / 240 480 / 480 Output: Urine Amount (Catheter) 1450 / 1450 1550 / 1550 Straight 1450 / 1450 1550 / 1550 Other: Date of Last Bowel Movement 06/18/18 Results Procedures completed during hospitalization: none Labs on day of discharge: Labs from last 24 hours 06/23/18 06/23/18 06:33 06:33 WBC 5.7 RBC 4.33 L Hgb 12.5 L Hct 37.8 L MCV 87.2 MCH 28.9 MCHC 33.1 RDW 16.7 Plt Count 171 MPV 9.3 Sodium 142 Potassium 4.3 Chloride 110 H Carbon Dioxide 26.4 Anion Gap 6 BUN 53 H Creatinine 3.14 H Estimated GFR 24 L Random Glucose 110 H Calcium 7.9 L Total Bilirubin 0.3 AST 15 ALT 25 Alkaline Phosphatase 78 Total Protein 6.1 L Albumin 2.5 L Preliminary micro results at discharge 06/19/18 10:40 Aerobic Blood Culture - Preliminary Blood - Peripheral No growth in 3 days Anaerobic Blood Culture - Preliminary No growth in 3 days 06/19/18 10:50 Aerobic Blood Culture - Preliminary Blood - Peripheral No growth in 3 days Anaerobic Blood Culture - Preliminary No growth in 3 days - Impressions ITS Impressions Chest X-Ray 06/19/18 10:37 CONCLUSION: Cardiomegaly and findings of congestive heart failure. Abdomen/Bladder Ultrasound 06/20/18 00:00 The kidneys are small and echogenic. There is a cyst at the upper pole of the right kidney measuring 11 mm. There is mild left-sided hydronephrosis. A Johnson catheter is noted within the urinary bladder and there is diffuse circumferential bladder wall thickening identified. Maximal AP thickness of 1.5 cm is identified anteriorly. CONCLUSION: 1. Abnormal circumferential bladder wall thickening is noted. 2. Echogenic kidneys are noted bilaterally. 3. Renal cyst. 4. On left-sided hydronephrosis. Myocardial Perfusion Scan Nuc Med 06/22/18 00:00 CONCLUSION: 1. Unremarkable study. Discharge Plan - Discharge Disposition Patient Disposition: /Home Health Service - Discharge Condition Condition: Good - Discharge Order Discharge Orders: Discharge Order (Routine); Ordered 06/23/18 Ordered By: Александр Sanchez - Physicians Team Primary Care Provider: [facility] 's Attending Provider: Александр Sanchez Other Providers: Ludwig Nieves MD ; Katya Ulloa MD
[2018-06-23 09:45] VITALS: O2SAT 96
[2018-06-23 10:48] VITALS: BP 126/76; RESP 17; TEMP 97.8
[2018-06-23 11:41] VITALS: PULSE 55
== END 2018-06-23 11:30 | disposition home health service (06) ==
LOC: NEPC 10:04 → NEDA 12:42 → N04 19:00
PROVIDERS: ADMIT Family Medicine; ATTEND Family Medicine

== ENCOUNTER 2018-07-29 18:45 | Inpatient (IN) ==
--- NOTE | 2018-07-29 19:04 | ED ---
HPI General Chief complaint: Respiratory Symptoms Stated complaint: RESP Time Seen by Provider: 07/29/18 18:55 History of Present Illness HPI narrative: 67-year-old male with a history of hypertension, chronic kidney disease, CHF, tobacco abuse is brought to the emergency department by EMS for evaluation of shortness of breath. Patient states that for the past 3 days he has had a productive cough. States that throughout the day today he has had shortness of breath. States that over the last hour the shortness of breath acutely worsened. Per EMS on their arrival the patient's oxygen saturation was 82% on room air and he was in acute distress. Patient was administered Solu- Medrol 125 mg IV, DuoNeb x1 and albuterol x1 by EMS. The patient states that this has greatly improved his symptoms. States that he still has some shortness of breath. Denies any fever, chills, nausea, vomiting, chest pain, abdominal pain, swelling of the lower extremities. States he has never previously been diagnosed with COPD although he has been smoking half pack per day of cigarettes since he was 16 years old. No other complaints. Related Data Home Medications Medication Instructions Recorded Confirmed multivitamin 1 tab PO DAILY 06/19/18 07/29/18 nifedipine 60 mg PO DAILY 06/19/18 07/29/18 hydralazine 50 mg PO TID 07/29/18 07/29/18 latanoprost 1 drp OPHTHALMIC (EYE) QPM 07/29/18 07/29/18 Allergies Allergy/AdvReac Type Severity Reaction Status Date / Time No Known Allergies Allergy Verified 07/29/18 19:02 Review of Systems ROS: all other systems reviewed are negative [facility] Medical History Medical History CHF (congestive heart failure) (Acute) COPD (chronic obstructive pulmonary disease) (Acute) Hypertension (Acute) Renal disease (Acute) Cocaine abuse (Acute) Enlarged prostate (Acute) Social History Social History Substance History: Active Abuse Second Hand Smoke Exposure: Yes Smoking Status: Current every day smoker Tobacco Type: Cigarettes How Often Do You Have a Drink Containing Alcohol: Never Exam Narrative Exam Narrative: GENERAL: Well-nourished and well-developed pleasant patient in no acute distress who is nontoxic appearing. SKIN: Warm and dry. HEAD: Normocephalic and atraumatic. EYES: No injection, drainage, or hyphema noted. PERRLA. EOMI. ENT: No nasal drainage noted. Oropharynx is clear. NECK: Supple and the trachea is midline. CARDIOVASCULAR: Regular rate and rhythm. RESPIRATORY: Decreased breath sounds at bases with slight wheezing. No accessory muscle use or crackles. GASTROINTESTINAL: Abdomen is soft, non-tender, and nondistended. MUSCULOSKELETAL: No obvious deformities, swelling, cyanosis, or ecchymosis is present throughout the upper and lower extremities. Patient has full range of motion without any signs of neurovascular compromise. Distal pulses are 2+ throughout. NEUROLOGICAL: Awake, alert, and oriented. Normal speech and gait. Cranial nerves are grossly intact. Course Initial Documented Vital Signs Temperature 97.9 F 07/29/18 18:51 Pulse Rate 91 H 07/29/18 18:51 Respiratory Rate 20 07/29/18 18:51 Blood Pressure 131/68 07/29/18 18:51 Pulse Oximetry 97 07/29/18 18:51 Last Documented Vital Signs Temperature 98.6 F 07/30/18 07:00 Pulse Rate 82 07/30/18 07:59 Respiratory Rate 18 07/30/18 07:59 Blood Pressure 106/70 07/30/18 07:00 Pulse Oximetry 97 07/30/18 08:00 Medical Decision Making NATI Attestation NATI supervised visit: Yes Attestation: I, Dr. Wolfe, have reviewed the advance practice practitioner's documentation and am in agreement, met with the patient face to face, made the diagnosis, and the medical decision making was done by me. The patient was initially evaluated by Hina, the NATI. Please see their complete history and physical. *My assessment and Findings: The patient presents with a history of shortness of breath that he reports began this afternoon. The patient's examination on arrival is remarkable for expiratory wheezes, decreased breath sounds in the bases. The patient has trace pedal edema in the right lower extremity, 1+ in the left lower extremity. During the course of the patient's emergency department visit, the patient's history, examination, and differential diagnosis were reviewed with the patient. The patient was placed on a cardiac cath lab manager with oximetry and frequent blood pressure monitoring. The patient had IV access obtained and blood work sent for analysis. The patient was initially provided Solu-Medrol by ambulance services, a DuoNeb prior to arrival and a DuoNeb on arrival at this facility. The patient's studies were reviewed and remarkable for a white count of 4.8, hemoglobin 11.4, platelets 152 with 88.8 neutrophilsChemistry is remarkable for a potassium of 5.6, chloride 115, CO2 is 16.5, BUN 46, creatinine 4.17, glucose 108, troponin I 0.08 which is stable compared to prior levels, BNP is elevated at 1805. The patient's kidney function is slightly worse compared to prior levels. A Johnson catheter will be placed to gravity. A chest x-ray revealed cardiomegaly with diffuse prominence of the interstitium which may represent pulmonary edema and an alveolar infiltrate in the right medial base which could represent infection. An ultrasound of the patient's left lower extremity showed no evidence of DVT. The patient was given Lasix 40 mg IV. The patient's results were discussed with the patient, including the plan of care. I explained that further testing and/ or monitoring is indicated based on the patient's history, examination, and/ or laboratory findings. Therefore, I recommended admission for additional evaluation. The patient expressed understanding and was agreeable with this plan. The patient was admitted to the hospital in guarded condition and sent to a bed under the care of the [facility] service. [facility] Narrative Medical decision making narrative: 67-year-old male presents to the ED for evaluation of shortness of breath. Patient is afebrile, vital signs are stable. IV access is obtained, labs been drawn and sent. Patient is placed on cardiac telemetry and pulse oximetry monitoring. Patient will be administered another DuoNeb. CBC shows mild anemia consistent with previous labs, otherwise unremarkable. CMP shows creatinine 4.17, this is elevated from baseline. Hyperkalemia with potassium 5.6. Troponin is 0.08, actually below baseline previous troponin of 0.10. Lactic acid is unremarkable. Chest x-ray shows cardiomegaly with diffuse prominence of interstitium which may represent pulmonary edema. Alveolar density in the right medial base representing some superimposed edema or consolidation. Patient administered Kayexalate 30 mg orally for hyperkalemia and Lasix 40 mg IV for CHF exacerbation. Patient administered Zithromax and Rocephin IV for pneumonia. I spoke with Dr. Saavedra [facility] who accepts patient to her service for admission. Medical Screen Exam Complete: Yes Emergency Medical Condition: Yes Differential Diagnosis Differential Diagnosis: COPD exacerbation versus pneumonia versus bronchitis versus CHF exacerbation Lab Data Result diagrams: 07/30/18 04:38 07/30/18 04:38 Lab Results 07/29/18 07/29/18 07/29/18 Range/Units 19:00 19:00 19:00 WBC 6.6 (4.0-11.0) th/mm3 RBC 4.18 L (4.50-5.90) mil/mm3 Hgb 12.1 L (13.0-17.0) gm/dL Hct 37.9 L (39.0-51.0) % MCV 90.7 (80.0-100.0) fL MCH 29.0 (27.0-34.0) pg MCHC 32.0 (32.0-36.0) % RDW 16.7 (11.6-17.2) % Plt Count 152 (150-450) th/mm3 MPV 8.9 (7.0-11.0) fL Neut % (Auto) 63.0 (16.0-70.0) % Lymph % (Auto) 27.3 (9.0-44.0) % [place] % (Auto) 7.3 (0.0-8.0) % Eos % (Auto) 1.9 (0.0-4.0) % Baso % (Auto) 0.5 (0.0-2.0) % Neut # (Auto) 4.1 (1.8-7.7) th/mm3 Lymph # (Auto) 1.8 (1.0-4.8) th/mm3 [place] # (Auto) 0.5 (0.0-0.9) th/mm3 Eos # (Auto) 0.1 (0.0-0.4) th/mm3 Baso # (Auto) 0.0 (0.0-0.2) th/mm3 WBC Differential . Differential Comment Auto diff final Sodium 141 (136-145) meq/L Potassium 5.6 H (3.5-5.1) meq/L Chloride 115 H (98-107) meq/L Carbon Dioxide 16.5 L (21.0-32.0) meq/L Anion Gap 10 (5-15) meq/L BUN 46 H (7-18) mg/dL Creatinine 4.17 H (0.60-1.30) mg/dL Estimated GFR 17 L (>89) mL/min Random Glucose 108 H (74-106) mg/dL Lactic Acid 0.8 (0.4-2.0) mmol/L Calcium 8.3 L (8.5-10.1) mg/dL Total Bilirubin 0.4 (0.2-1.0) mg/dL AST 27 (15-37) U/L ALT 36 (12-78) U/L Alkaline Phosphatase 95 (45-117) U/L Total Creatine Kinase (39-308) U/L CK-MB (CK-2) (0.5-3.6) ng/mL CK-MB (CK-2) % (0.0-4.0) % Troponin I 0.08 H (0.02-0.05) ng/mL B-Natriuretic Peptide (0-100) pg/mL Total Protein 6.9 (6.4-8.2) g/dL Albumin 3.1 L (3.4-5.0) g/dL Urine Color (Yellw/Straw) Urine Clarity (Clear) Urine pH (5.0-8.5) Ur Specific [place] (1.002-1.035) Urine Protein (Neg-Trace) mg/dL Urine Glucose (UA) (Negative) mg/dL Urine Ketones (Negative) mg/dL Urine Occult Blood (Negative) Urine Nitrate (Negative) Urine Bilirubin (Negative) Urine Urobilinogen (Less than 2) mg/dL Ur Leukocyte Esterase (Negative) Urine RBC (0-3) /hpf Urine WBC (0-5) /hpf Urine WBC Clumps (None) Urine Bacteria (None) /hpf Urine Mucus (Occasional) /lpf Micro UA Comment Ur Microscopic Review Urine Culture Comments Urine Opiates Screen (Neg) Ur Barbiturates Screen (Neg) Ur Amphetamines Screen (Neg) U Benzodiazepines Scrn (Neg) Urine Cocaine Screen (Neg) U Cannabinoids Screen (Neg) 07/29/18 07/29/18 07/29/18 Range/Units 19:00 22:45 22:45 WBC (4.0-11.0) th/mm3 RBC (4.50-5.90) mil/mm3 Hgb (13.0-17.0) gm/dL Hct (39.0-51.0) % MCV (80.0-100.0) fL MCH (27.0-34.0) pg MCHC (32.0-36.0) % RDW (11.6-17.2) % Plt Count (150-450) th/mm3 MPV (7.0-11.0) fL Neut % (Auto) (16.0-70.0) % Lymph % (Auto) (9.0-44.0) % [place] % (Auto) (0.0-8.0) % Eos % (Auto) (0.0-4.0) % Baso % (Auto) (0.0-2.0) % Neut # (Auto) (1.8-7.7) th/mm3 Lymph # (Auto) (1.0-4.8) th/mm3 [place] # (Auto) (0.0-0.9) th/mm3 Eos # (Auto) (0.0-0.4) th/mm3 Baso # (Auto) (0.0-0.2) th/mm3 WBC Differential Differential Comment Sodium (136-145) meq/L Potassium (3.5-5.1) meq/L Chloride (98-107) meq/L Carbon Dioxide (21.0-32.0) meq/L Anion Gap (5-15) meq/L BUN (7-18) mg/dL Creatinine (0.60-1.30) mg/dL Estimated GFR (>89) mL/min Random Glucose (74-106) mg/dL Lactic Acid (0.4-2.0) mmol/L Calcium (8.5-10.1) mg/dL Total Bilirubin (0.2-1.0) mg/dL AST (15-37) U/L ALT (12-78) U/L Alkaline Phosphatase (45-117) U/L Total Creatine Kinase (39-308) U/L CK-MB (CK-2) (0.5-3.6) ng/mL CK-MB (CK-2) % (0.0-4.0) % Troponin I (0.02-0.05) ng/mL B-Natriuretic Peptide 1805 H (0-100) pg/mL Total Protein (6.4-8.2) g/dL Albumin (3.4-5.0) g/dL Urine Color Yellow (Yellw/Straw) Urine Clarity Cloudy H (Clear) Urine pH 5.0 (5.0-8.5) Ur Specific [place] 1.008 (1.002-1.035) Urine Protein Negative (Neg-Trace) mg/dL Urine Glucose (UA) Negative (Negative) mg/dL Urine Ketones Negative (Negative) mg/dL Urine Occult Blood Small H (Negative) Urine Nitrate Negative (Negative) Urine Bilirubin Negative (Negative) Urine Urobilinogen Less than 2 (Less than 2) mg/dL Ur Leukocyte Esterase Large H (Negative) Urine RBC 9 H (0-3) /hpf Urine WBC 155 H (0-5) /hpf Urine WBC Clumps Many H (None) Urine Bacteria Many H (None) /hpf Urine Mucus Few H (Occasional) /lpf Micro UA Comment Cath-culture ind Ur Microscopic Review Not Reportable Urine Culture Comments Cath-cult indicated Urine Opiates Screen Neg (Neg) Ur Barbiturates Screen Neg (Neg) Ur Amphetamines Screen Neg (Neg) U Benzodiazepines Scrn Neg (Neg) Urine Cocaine Screen Pos H (Neg) U Cannabinoids Screen Neg (Neg) 07/30/18 07/30/18 07/30/18 Range/Units 00:13 04:38 04:38 WBC 4.8 (4.0-11.0) th/mm3 RBC 3.94 L (4.50-5.90) mil/mm3 Hgb 11.4 L (13.0-17.0) gm/dL Hct 34.9 L (39.0-51.0) % MCV 88.5 (80.0-100.0) fL MCH 28.8 (27.0-34.0) pg MCHC 32.6 (32.0-36.0) % RDW 16.6 (11.6-17.2) % Plt Count 152 (150-450) th/mm3 MPV 9.3 (7.0-11.0) fL Neut % (Auto) 88.8 H (16.0-70.0) % Lymph % (Auto) 9.1 (9.0-44.0) % [place] % (Auto) 1.9 (0.0-8.0) % Eos % (Auto) 0.0 (0.0-4.0) % Baso % (Auto) 0.2 (0.0-2.0) % Neut # (Auto) 4.3 (1.8-7.7) th/mm3 Lymph # (Auto) 0.4 L (1.0-4.8) th/mm3 [place] # (Auto) 0.1 (0.0-0.9) th/mm3 Eos # (Auto) 0.0 (0.0-0.4) th/mm3 Baso # (Auto) 0.0 (0.0-0.2) th/mm3 WBC Differential . Differential Comment Auto diff final Sodium 144 (136-145) meq/L Potassium 5.7 H (3.5-5.1) meq/L Chloride 115 H (98-107) meq/L Carbon Dioxide 18.2 L (21.0-32.0) meq/L Anion Gap 11 (5-15) meq/L BUN 43 H (7-18) mg/dL Creatinine 4.19 H (0.60-1.30) mg/dL Estimated GFR 17 L (>89) mL/min Random Glucose 118 H (74-106) mg/dL Lactic Acid (0.4-2.0) mmol/L Calcium 8.2 L (8.5-10.1) mg/dL Total Bilirubin (0.2-1.0) mg/dL AST (15-37) U/L ALT (12-78) U/L Alkaline Phosphatase (45-117) U/L Total Creatine Kinase 554 H 469 H (39-308) U/L CK-MB (CK-2) 6.8 H 5.8 H (0.5-3.6) ng/mL CK-MB (CK-2) % 1.2 1.2 (0.0-4.0) % Troponin I 0.08 H 0.08 H (0.02-0.05) ng/mL B-Natriuretic Peptide (0-100) pg/mL Total Protein (6.4-8.2) g/dL Albumin (3.4-5.0) g/dL Urine Color (Yellw/Straw) Urine Clarity (Clear) Urine pH (5.0-8.5) Ur Specific [place] (1.002-1.035) Urine Protein (Neg-Trace) mg/dL Urine Glucose (UA) (Negative) mg/dL Urine Ketones (Negative) mg/dL Urine Occult Blood (Negative) Urine Nitrate (Negative) Urine Bilirubin (Negative) Urine Urobilinogen (Less than 2) mg/dL Ur Leukocyte Esterase (Negative) Urine RBC (0-3) /hpf Urine WBC (0-5) /hpf Urine WBC Clumps (None) Urine Bacteria (None) /hpf Urine Mucus (Occasional) /lpf Micro UA Comment Ur Microscopic Review Urine Culture Comments Urine Opiates Screen (Neg) Ur Barbiturates Screen (Neg) Ur Amphetamines Screen (Neg) U Benzodiazepines Scrn (Neg) Urine Cocaine Screen (Neg) U Cannabinoids Screen (Neg) Imaging Data Radiologist's impression: Chest X-Ray 07/29/18 18:56 CONCLUSION: Cardiomegaly with diffuse prominence of interstitium which may represent pulmonary edema. Alveolar density in the right medial base representing some superimposed edema or consolidation/infection. Venous Doppler Study 07/29/18 22:39 CONCLUSION: No DVT. Discharge Plan Discharge Disposition Patient Disposition: 30 Still Patient Discharge Details Diagnosis: Acute exacerbation of CHF (congestive heart failure), Acute on chronic kidney failure, CAP (community acquired pneumonia), Acute hyperkalemia Physicians Team ED Provider: Jimena Wolfe ED Midlevel Provider: Hina Sanchez Primary Care Provider: [facility]ician [place] Attending Provider: Imelda Meraz Status ED Status: Left Department Discharge Information Discharge Date/Time: 07/29/18 23:59
--- NOTE | 2018-07-29 19:12 | XR ---
EXAM DATE: 07/29/2018 6:56 PM EDT AGE/SEX: 67 years / Male INDICATIONS: Shortness of breath. CLINICAL DATA: This is the patient's initial encounter. Patient reports that signs and symptoms have been present for 1 day and indicates a pain score of 0/10. MEDICAL/SURGICAL HISTORY: Hypertension. None. COMPARISON: [facility] – [place]ST 1V SINGLE AP, 06/19/2018. . FINDINGS: The heart size is enlarged. There is mild diffuse increased interstitial markings. There is alveolar density at the right medial base. There is minimal blunting of the costophrenic angles. CONCLUSION: Cardiomegaly with diffuse prominence of interstitium which may represent pulmonary edema. Alveolar density in the right medial base representing some superimposed edema or consolidation/infec tion. Electronically signed by: Matty Valverde MD 07/29/2018 7:11 PM EDT
[2018-07-29 19:24] LABS: Baso % (Auto) 0.5 % (0.0-2.0); Eos # (Auto) 0.1 th/mm3 (0.0-0.4); Eos % (Auto) 1.9 % (0.0-4.0); Hematocrit 37.9 % (39.0-51.0); Hemoglobin 12.1 gm/dL (13.0-17.0); Lymph # (Auto) 1.8 th/mm3 (1.0-4.8); Lymph % (Auto) 27.3 % (9.0-44.0); Mean Corpuscular Volume 90.7 fL (80.0-100.0); Mean Platelet Volume 8.9 fL (7.0-11.0); Mono # (Auto) 0.5 th/mm3 (0.0-0.9); Mono % (Auto) 7.3 % (0.0-8.0); Neut # (Auto) 4.1 th/mm3 (1.8-7.7); Platelet Count 152 th/mm3 (150-450); Red Blood Count 4.18 mil/mm3 (4.50-5.90); Red Cell Distribution Width 16.7 % (11.6-17.2); White Blood Count 6.6 th/mm3 (4.0-11.0)
[2018-07-29 19:33] LABS: Albumin 3.1 g/dL (3.4-5.0); Anion Gap 10 meq/L (5-15); Aspartate Aminotransferase 27 U/L (15-37); Blood Urea Nitrogen 46 mg/dL (7-18); Calcium 8.3 mg/dL (8.5-10.1); Carbon Dioxide 16.5 meq/L (21.0-32.0); Chloride 115 meq/L (98-107); Glomerular Filtration Rate 17 mL/min (>89); Glucose,Random 108 mg/dL (74-106); Potassium 5.6 meq/L (3.5-5.1); Sodium 141 meq/L (136-145)
[2018-07-29 19:34] LABS: Alanine Aminotransferase 36 U/L (12-78)
[2018-07-29 19:38] LABS: Alkaline Phosphatase 95 U/L (45-117); Total Protein 6.9 g/dL (6.4-8.2); Troponin I 0.08 ng/mL (0.02-0.05)
[2018-07-29] MEDS ORDERED: Sodium Polystyrene Sulfonate/Sorbitol Liq 15 GM/60 ML UDC PO ONE (20:23)
[2018-07-29] MEDS ORDERED: Azithromycin Inj 500 MG in Sodium Chlor 0.9% Inj 250 ML IV.SIG ONE (20:45)
[2018-07-29] MEDS ORDERED: Acetaminophen 325 MG Tablet PO PRN (22:39)
[2018-07-29] MEDS ORDERED: Bisacodyl 10 MG Supp RECTAL PRN (22:39)
--- NOTE | 2018-07-29 22:52 | P.HP ---
History of Present Illness Service: [facility] Primary Care Physician: [facility] History of Present Illness: 67-year-old male with a past medical history significant for COPD, CHF (EF of 45 -50% on 06/20/18), chronic kidney disease and hypertension presents to the emergency department for the evaluation of shortness of breath. The patient reports that starting this afternoon he began having difficulty breathing which subsequently worsened. Per EMS report the patient was satting 82% on room air on their arrival. The patient was recently hospitalized for CHF exacerbation at which time he was diagnosed with CHF. He endorses intermittent bilateral lower extremity edema that worsened yesterday. He denies any chest pain. Endorses a chronic, nonproductive cough. No abdominal pain. No nausea/vomiting /diarrhea. No fevers/chills. No lateralizing signs/symptoms. Inpatient Certification: I certify that the inpatient services were ordered in accordance with Medicare regulations governing the order. This includes certification that hospital inpatient services are reasonable and necessary and in the case of services not specified as inpatient-only under 42 CFR 419.22(n), that they are appropriately provided as inpatient services in accordance to with the 2-midnight benchmark under 43 CFR 412.3(e) Estimated Total Length of Stay (Days): 2 Plans for Post Hospital Care: Not yet determined Review of Systems All other systems reviewed negative except as stated in HPI PMFSH - History History Provided By: Patient - Medical History Medical History: Medical History (Last Updated 07/29/18 @ 22:45 by Samia Saavedra MD) CHF (congestive heart failure) COPD (chronic obstructive pulmonary disease) Hypertension Renal disease Cocaine abuse Enlarged prostate - Surgical History Surgical History: Surgical History (Last Reviewed 07/29/18 @ 22:46 by Samia Saavedra MD) No history of previous surgery - Family History Family History: Family History (Last Reviewed 07/29/18 @ 22:46 by Samia Saavedra MD) Other Hypertension Type 2 diabetes mellitus - Tobacco History Second Hand Smoke Exposure: No Tobacco Use In Past 30 Days: Yes Smoking Status: Current every day smoker Tobacco Type: Cigarettes - Alcohol History How Often Do You Have a Drink Containing Alcohol: Never - Substance Use History Substance History: Active Abuse - Substance Use Type Crack/Cocaine Status: Active - Immunization History Tetanus Immunization: Unsure Medications and Allergies Allergies Allergy/AdvReac Type Severity Reaction Status Date / Time No Known Allergies Allergy Verified 07/29/18 19:02 Home Medications Medication Instructions Recorded Confirmed Type multivitamin 1 tab PO DAILY 06/19/18 07/29/18 History nifedipine 60 mg PO DAILY 06/19/18 07/29/18 History hydralazine 50 mg PO TID 07/29/18 07/29/18 History latanoprost 1 drp OPHTHALMIC (EYE) QPM 07/29/18 07/29/18 History Exam Vital signs: Vital Signs 07/29/18 18:51 07/29/18 19:10 07/29/18 19:12 Temperature 97.9 F Pulse Rate 91 H 83 Respiratory Rate 20 18 Blood Pressure 131/68 122/65 Pulse Oximetry 97 95 96 07/29/18 19:25 Temperature Pulse Rate 81 Respiratory Rate 24 Blood Pressure Pulse Oximetry 100 Intake & Output 07/29/18 07/29/18 07/30/18 06:59 18:59 06:59 Weight 68.039 kg Narrative: Gen.: No acute distress Head: Normocephalic. Atraumatic. EENT: Pupils equal round and reactive to light. Nose without drainage. Airway intact. Throat without injection. Cardiovascular: Regular rate and rhythm. No murmurs, rubs or gallops. Respiratory: Poor air movement. Bilateral crackles. Abdomen: Soft, nontender, nondistended. No peritoneal signs. Musculoskeletal: No gross deformities. 1+ bilateral pedal and ankle edema. Skin: No obvious rashes or erythema. Neuro: Sensory and motor grossly intact. Cranial nerves II through XII grossly intact. Results - Labs CBC & Chem 7: 07/29/18 19:00 07/29/18 19:00 Labs: Laboratory Results - last 24 hr 07/29/18 07/29/18 07/29/18 19:00 19:00 19:00 WBC 6.6 RBC 4.18 L Hgb 12.1 L Hct 37.9 L MCV 90.7 MCH 29.0 MCHC 32.0 RDW 16.7 Plt Count 152 MPV 8.9 Neut % (Auto) 63.0 Lymph % (Auto) 27.3 [place] % (Auto) 7.3 Eos % (Auto) 1.9 Baso % (Auto) 0.5 Neut # (Auto) 4.1 Lymph # (Auto) 1.8 [place] # (Auto) 0.5 Eos # (Auto) 0.1 Baso # (Auto) 0.0 WBC Differential . Differential Comment Auto diff final Sodium 141 Potassium 5.6 H Chloride 115 H Carbon Dioxide 16.5 L Anion Gap 10 BUN 46 H Creatinine 4.17 H Estimated GFR 17 L Random Glucose 108 H Lactic Acid 0.8 Calcium 8.3 L Total Bilirubin 0.4 AST 27 ALT 36 Alkaline Phosphatase 95 Troponin I 0.08 H B-Natriuretic Peptide Total Protein 6.9 Albumin 3.1 L 07/29/18 19:00 WBC RBC Hgb Hct MCV MCH MCHC RDW Plt Count MPV Neut % (Auto) Lymph % (Auto) [place] % (Auto) Eos % (Auto) Baso % (Auto) Neut # (Auto) Lymph # (Auto) [place] # (Auto) Eos # (Auto) Baso # (Auto) WBC Differential Differential Comment Sodium Potassium Chloride Carbon Dioxide Anion Gap BUN Creatinine Estimated GFR Random Glucose Lactic Acid Calcium Total Bilirubin AST ALT Alkaline Phosphatase Troponin I B-Natriuretic Peptide 1805 H Total Protein Albumin - Imaging Impressions Chest X-Ray 07/29/18 18:56 CONCLUSION: Cardiomegaly with diffuse prominence of interstitium which may represent pulmonary edema. Alveolar density in the right medial base representing some superimposed edema or consolidation/infection. Caprini VTE Risk Assessment Caprini VTE Risk Assessment: Moderate/High Risk (score >= 2) Caprini Risk Assessment Model: Point Value = 1 Point Value = 2 Point Value = 3 Point Value = 5 Age 41-60 Minor surgery BMI > 25 kg/m2 Swollen legs Varicose veins or History of unexplained or recurrent spontaneous Oral contraceptives or hormone replacement Sepsis (< 1 month) Serious lung disease, including pneumonia (< 1 month) Abnormal pulmonary function Acute myocardial infarction Congestive heart failure (< 1 month) History of inflammatory bowel disease Medical patient at bed rest Age 61-74 Arthroscopic surgery Major open surgery (> 45 min) Laparoscopic surgery (> 45 min) Malignancy Confined to bed (> 72 hours) Immobilizing plaster cast Central venous access Age >= 75 History of VTE Family history of VTE Factor V Leiden Prothrombin [id number] Lupus anticoagulant Anticardiolipin antibodies Elevated serum homocysteine Heparin-induced thrombocytopenia Other congenital or acquired thrombophilia Stroke (< 1 month) Elective arthroplasty Hip, pelvis, or leg fracture Acute spinal cord injury (< 1 month) Prophylaxis Regimen: Total Risk Factor Score Risk Level Prophylaxis Regimen 0-1 Low Early ambulation 2 Moderate Order ONE of the following: *Sequential Compression Device (SCD) *Heparin 5000 units SQ BID 3-4 Higher Order ONE of the following medications: *Heparin 5000 units SQ TID *Enoxaparin/Lovenox 40 mg SQ daily (WT < 150 kg, CrCl > 30 mL/min) *Enoxaparin/Lovenox 30 mg SQ daily (WT < 150 kg, CrCl > 10-29 mL/min) *Enoxaparin/Lovenox 30 mg SQ BID (WT < 150 kg, CrCl > 30 mL/min) AND/OR *Sequential Compression Device (SCD) 5 or more Highest Order ONE of the following medications: *Heparin 5000 units SQ TID (Preferred with Epidurals) *Enoxaparin/Lovenox 40 mg SQ daily (WT < 150 kg, CrCl > 30 mL/min) *Enoxaparin/Lovenox 30 mg SQ daily (WT < 150 kg, CrCl > 10-29 mL/min) *Enoxaparin/Lovenox 30 mg SQ BID (WT < 150 kg, CrCl > 30 mL/min) AND *Sequential Compression Device (SCD) Assessment and Plan - Plan Assessment/plan: 1. Shortness of breath/CHF exacerbation/COPD exacerbation/pneumonia Chest x-ray significant for cardiomegaly with pulmonary edema and right medial base density concerning for pneumonia, personally reviewed BNP 1805 IV steroids and duo nebs IV Lasix Azithromycin and Rocephin Supplemental oxygen as needed 2. Hypertension Continue home hydralazine and nifedipine 3. Chronic kidney disease Creatinine 4.17, baseline 3.7 Monitor renal function 4. Elevated troponin Troponin 0.08 ACS rule out pending; serial troponins/EKGs Suspect secondary to renal function 5. Hyperkalemia Potassium 5.6 without EKG changes Status post Kayexalate in the ED Monitor BMP FEN Cardiac diet Electrolytes: As above Heparin
--- NOTE | 2018-07-29 23:05 | US ---
EXAM DATE: 07/29/2018 10:39 PM EDT AGE/SEX: 67 years / Male INDICATIONS: Left leg swelling. CLINICAL DATA: This is the patient's initial encounter. Patient reports that signs and symptoms have been present for 1 day and indicates a pain score of 0/10. MEDICAL/SURGICAL HISTORY: Congestive heart failure. Chronic obstructive pulmonary disease. Hy pertension. Renal disease. Cocaine abuse. Enlarged prostate. None. COMPARISON: No prior exams available for comparison. TECHNIQUE: Venous ultrasound of both lower extremities was performed from the inguinal ligament to t he proximal calf. Real-time, color Doppler and spectral tracing, compression and augmentation techni ques were used. FINDINGS: Normal compression of the deep venous system from the inguinal region to the proximal calf . No echogenic clot is seen. Normal response of the venous system to augmentation and respiration. Th ere is superficial edema. CONCLUSION: No DVT. Electronically signed by: Matty Valverde MD 07/29/2018 11:04 PM EDT
[2018-07-29 23:21] LABS: Amphetamine Screen,Urine Neg (Neg); Barbiturate Screen,Urine Neg (Neg); Cannabinoid Screen,Urine Neg (Neg); Cocaine Screen,Urine Pos (Neg)
[2018-07-29 23:22] LABS: Bacteria,Urine Many /hpf; Bilirubin,Urine Negative (Negative); Clarity,Urine Cloudy (Clear); Color,Urine Yellow (Yellw/Straw); Glucose,Urine (UA) Negative (Negative); Leukocyte Esterase,Urine Large (Negative); Mucus,Urine Few /lpf (Occasional); Nitrite,Urine Negative (Negative); Specific Gravity,Urine 1.008 (1.002-1.035)
[2018-07-29 23:25] LABS: Opiate Screen,Urine Neg (Neg)
[2018-07-29] MEDS: Heparin - SQ 10,000 UNITS/ML Vial SQ SCH (23:32)
[2018-07-30 00:56] LABS: Troponin I 0.08 ng/mL (0.02-0.05)
[2018-07-30 01:08] LABS: CKMB Percent 1.2 % (0.0-4.0); Creatine Kinase MB 6.8 ng/mL (0.5-3.6)
[2018-07-30] MEDS: MethylPREDNISolone Sod Succinate Inj 40 MG/ML Vial IV.PUSH SCH ×4 (05:00→23:30)
[2018-07-30 05:55] LABS: Baso % (Auto) 0.2 % (0.0-2.0); Hematocrit 34.9 % (39.0-51.0); Hemoglobin 11.4 gm/dL (13.0-17.0); Lymph # (Auto) 0.4 th/mm3 (1.0-4.8); Lymph % (Auto) 9.1 % (9.0-44.0); Mean Corpuscular HGB Conc 32.6 % (32.0-36.0); Mean Corpuscular Hemoglobin 28.8 pg (27.0-34.0); Mean Corpuscular Volume 88.5 fL (80.0-100.0); Mean Platelet Volume 9.3 fL (7.0-11.0); Mono # (Auto) 0.1 th/mm3 (0.0-0.9); Mono % (Auto) 1.9 % (0.0-8.0); Neut # (Auto) 4.3 th/mm3 (1.8-7.7); Neut % (Auto) 88.8 % (16.0-70.0); Platelet Count 152 th/mm3 (150-450); Red Blood Count 3.94 mil/mm3 (4.50-5.90); Red Cell Distribution Width 16.6 % (11.6-17.2); White Blood Count 4.8 th/mm3 (4.0-11.0)
[2018-07-30 06:18] LABS: Calcium 8.2 mg/dL (8.5-10.1); Carbon Dioxide 18.2 meq/L (21.0-32.0); Potassium 5.7 meq/L (3.5-5.1)
[2018-07-30 06:21] LABS: Troponin I 0.08 ng/mL (0.02-0.05)
[2018-07-30 06:33] LABS: CKMB Percent 1.2 % (0.0-4.0); Creatine Kinase MB 5.8 ng/mL (0.5-3.6)
[2018-07-30] MEDS: Senna/Docusate Sodium 8.6/50 MG Tablet PO SCH ×2 (08:50→20:09)
--- NOTE | 2018-07-30 09:01 | ECG ---
Date Performed: 07/30/2018 Time Performed: 05:48:56 PTAGE: 67 years EKG: Sinus rhythm with PVC(s) left bundle branch block Probable artifact (spikes random without capture, less likely p acemaker dysfunctioon) Abnormal ECG PREVIOUS TRACING : 07/30/2018 00.54 DOCTOR: Ludwig Nieves Interpretating Date/Time 07/30/2018 09:00:27
--- NOTE | 2018-07-30 09:13 | ECG ---
Date Performed: 07/30/2018 Time Performed: 00:54:30 PTAGE: 67 years EKG: Sinus rhythm with PAC(s) Left axis deviation IV conduction defect Abnormal ECG PREVIOUS TRACING : 07/29/2018 18.55 DOCTOR: Ludwig Nieves Interpretating Date/Time 07/30/2018 09:12:42
[2018-07-30] MEDS: hydrALAZINE 50 MG Tablet PO SCH ×3 (10:04→17:13)
--- NOTE | 2018-07-30 10:05 | ECG ---
Date Performed: 07/29/2018 Time Performed: 18:55:18 PTAGE: 67 years EKG: Sinus rhythm WITH OCCASIONAL SUPRAVENTRICULAR PREMATURE COMPLEXES INTRAVENTRICULAR CONDUCTION DELAY ABNORMAL ECG NO PREVIOUS TRACING DOCTOR: Ludwig Nieves Interpretating Date/Time 07/30/2018 10:04:05
[2018-07-30] MEDS: Heparin - SQ 10,000 UNITS/ML Vial SQ SCH ×2 (12:35→23:29)
--- NOTE | 2018-07-30 13:51 | P.PNIM ---
Subjective Interval history: Patient reports he is feeling better today. Breathing much more comfortable today. Renal functions essentially unchanged but hyperkalemia persist. Physical Exam Vital signs: Vital Signs 07/29/18 18:51 07/29/18 19:10 07/29/18 19:12 Temperature 97.9 F Pulse Rate 91 H 83 Respiratory Rate 20 18 Blood Pressure 131/68 122/65 Pulse Oximetry 97 95 96 07/29/18 19:25 07/29/18 23:05 07/29/18 23:32 Temperature Pulse Rate 81 83 85 Respiratory Rate 24 24 18 Blood Pressure 103/65 Pulse Oximetry 100 97 07/30/18 00:00 07/30/18 01:00 07/30/18 02:00 Temperature 98.0 F Pulse Rate 86 82 84 Respiratory Rate 20 Blood Pressure 115/60 Pulse Oximetry 94 L 07/30/18 03:00 07/30/18 03:36 07/30/18 04:00 Temperature 97.8 F Pulse Rate 75 80 77 Respiratory Rate 16 Blood Pressure 110/49 L Pulse Oximetry 96 07/30/18 05:00 07/30/18 06:00 07/30/18 07:00 Temperature 98.6 F Pulse Rate 80 69 79 Respiratory Rate 20 Blood Pressure 106/70 Pulse Oximetry 97 07/30/18 07:59 07/30/18 08:00 07/30/18 08:54 Temperature Pulse Rate 82 78 85 Respiratory Rate 18 Blood Pressure 115/63 Pulse Oximetry 97 07/30/18 09:00 07/30/18 10:00 07/30/18 11:00 Temperature 98.2 F Pulse Rate 82 82 89 Respiratory Rate 18 Blood Pressure 120/65 Pulse Oximetry 99 07/30/18 12:26 Temperature Pulse Rate 85 Respiratory Rate 18 Blood Pressure Pulse Oximetry Intake & Output 07/29/18 07/30/18 07/30/18 18:59 06:59 18:59 Intake Total 350 / 350 Output Total 1650 / 1650 Balance -1300 / -1300 Weight 68.039 kg 71.4 kg Intake: IV 350 / 350 Azithromycin Inj 500 MG In NS 250 / 250 Inj 250 ML @ 250 mls/hr IV.SIG ONCE ONE Rx#:[id number] Rocephin Inj 1,000 MG In NS Inj 100 / 100 100 ML @ 200 mls/hr IV.SIG ONCE ONE Rx#:[id number] Output: Urine Amount (Catheter) 1649 Indwelling Urethral Catheter 1649 Other: Date of Last Bowel Movement 07/28/18 Narrative: Gen.: No acute distress Head: Normocephalic. Atraumatic. EENT: Pupils equal round and reactive to light. Nose without drainage. Airway intact. Throat without injection. Cardiovascular: Regular rate and rhythm. No murmurs, rubs or gallops. Respiratory: Poor air movement. Bilateral crackles. Abdomen: Soft, nontender, nondistended. No peritoneal signs. Musculoskeletal: No gross deformities. 1+ bilateral lower extremity edema. Skin: No obvious rashes or erythema. Neuro: Sensory and motor grossly intact. Cranial nerves II through XII grossly intact. - Urinary Catheter Management Indwelling Urethral Catheter Cath placed during this visit: yes, but has since been removed by the nurse Reason for continuing: Hourly intake/output Insertion date: 07/29/18 Insertion time: 22:30 Removal date: 07/29/18 Removal time: 22:00 Results - Labs CBC & Chem 7: 07/30/18 04:38 07/30/18 04:38 Laboratory Results - last 24 hr 07/29/18 07/29/18 07/29/18 19:00 19:00 19:00 WBC 6.6 RBC 4.18 L Hgb 12.1 L Hct 37.9 L MCV 90.7 MCH 29.0 MCHC 32.0 RDW 16.7 Plt Count 152 MPV 8.9 Neut % (Auto) 63.0 Lymph % (Auto) 27.3 [place] % (Auto) 7.3 Eos % (Auto) 1.9 Baso % (Auto) 0.5 Neut # (Auto) 4.1 Lymph # (Auto) 1.8 [place] # (Auto) 0.5 Eos # (Auto) 0.1 Baso # (Auto) 0.0 WBC Differential . Differential Comment Auto diff final Sodium 141 Potassium 5.6 H Chloride 115 H Carbon Dioxide 16.5 L Anion Gap 10 BUN 46 H Creatinine 4.17 H Estimated GFR 17 L Random Glucose 108 H Lactic Acid 0.8 Calcium 8.3 L Total Bilirubin 0.4 AST 27 ALT 36 Alkaline Phosphatase 95 Total Creatine Kinase CK-MB (CK-2) CK-MB (CK-2) % Troponin I 0.08 H B-Natriuretic Peptide Total Protein 6.9 Albumin 3.1 L Urine Color Urine Clarity Urine pH Ur Specific [place] Urine Protein Urine Glucose (UA) Urine Ketones Urine Occult Blood Urine Nitrate Urine Bilirubin Urine Urobilinogen Ur Leukocyte Esterase Urine RBC Urine WBC Urine WBC Clumps Urine Bacteria Urine Mucus Micro UA Comment Ur Microscopic Review Urine Culture Comments Urine Opiates Screen Ur Barbiturates Screen Ur Amphetamines Screen U Benzodiazepines Scrn Urine Cocaine Screen U Cannabinoids Screen 07/29/18 07/29/18 07/29/18 19:00 22:45 22:45 WBC RBC Hgb Hct MCV MCH MCHC RDW Plt Count MPV Neut % (Auto) Lymph % (Auto) [place] % (Auto) Eos % (Auto) Baso % (Auto) Neut # (Auto) Lymph # (Auto) [place] # (Auto) Eos # (Auto) Baso # (Auto) WBC Differential Differential Comment Sodium Potassium Chloride Carbon Dioxide Anion Gap BUN Creatinine Estimated GFR Random Glucose Lactic Acid Calcium Total Bilirubin AST ALT Alkaline Phosphatase Total Creatine Kinase CK-MB (CK-2) CK-MB (CK-2) % Troponin I B-Natriuretic Peptide 1805 H Total Protein Albumin Urine Color Yellow Urine Clarity Cloudy H Urine pH 5.0 Ur Specific [place] 1.008 Urine Protein Negative Urine Glucose (UA) Negative Urine Ketones Negative Urine Occult Blood Small H Urine Nitrate Negative Urine Bilirubin Negative Urine Urobilinogen Less than 2 Ur Leukocyte Esterase Large H Urine RBC 9 H Urine WBC 155 H Urine WBC Clumps Many H Urine Bacteria Many H Urine Mucus Few H Micro UA Comment Cath-culture ind Ur Microscopic Review Not Reportable Urine Culture Comments Cath-cult indicated Urine Opiates Screen Neg Ur Barbiturates Screen Neg Ur Amphetamines Screen Neg U Benzodiazepines Scrn Neg Urine Cocaine Screen Pos H U Cannabinoids Screen Neg 07/30/18 07/30/18 07/30/18 00:13 04:38 04:38 WBC 4.8 RBC 3.94 L Hgb 11.4 L Hct 34.9 L MCV 88.5 MCH 28.8 MCHC 32.6 RDW 16.6 Plt Count 152 MPV 9.3 Neut % (Auto) 88.8 H Lymph % (Auto) 9.1 [place] % (Auto) 1.9 Eos % (Auto) 0.0 Baso % (Auto) 0.2 Neut # (Auto) 4.3 Lymph # (Auto) 0.4 L [place] # (Auto) 0.1 Eos # (Auto) 0.0 Baso # (Auto) 0.0 WBC Differential . Differential Comment Auto diff final Sodium 144 Potassium 5.7 H Chloride 115 H Carbon Dioxide 18.2 L Anion Gap 11 BUN 43 H Creatinine 4.19 H Estimated GFR 17 L Random Glucose 118 H Lactic Acid Calcium 8.2 L Total Bilirubin AST ALT Alkaline Phosphatase Total Creatine Kinase 554 H 469 H CK-MB (CK-2) 6.8 H 5.8 H CK-MB (CK-2) % 1.2 1.2 Troponin I 0.08 H 0.08 H B-Natriuretic Peptide Total Protein Albumin Urine Color Urine Clarity Urine pH Ur Specific [place] Urine Protein Urine Glucose (UA) Urine Ketones Urine Occult Blood Urine Nitrate Urine Bilirubin Urine Urobilinogen Ur Leukocyte Esterase Urine RBC Urine WBC Urine WBC Clumps Urine Bacteria Urine Mucus Micro UA Comment Ur Microscopic Review Urine Culture Comments Urine Opiates Screen Ur Barbiturates Screen Ur Amphetamines Screen U Benzodiazepines Scrn Urine Cocaine Screen U Cannabinoids Screen Microbiology 07/29/18 19:00 Blood - Peripheral Aerobic Blood Culture - Preliminary No growth in 1 day 07/29/18 19:00 Blood - Peripheral Anaerobic Blood Culture - Preliminary No growth in 1 day 07/29/18 19:00 Blood - Peripheral Aerobic Blood Culture - Preliminary No growth in 1 day 07/29/18 19:00 Blood - Peripheral Anaerobic Blood Culture - Preliminary No growth in 1 day 07/29/18 19:18 Nasal Wash Influenza Types A,B Antigen - Final Negative for FLU A and B antigen Infection due to influenza A or B cannot be ruled out since the antigen present in the sample may be below the detection limit of the test. - Imaging Impressions Chest X-Ray 07/29/18 18:56 CONCLUSION: Cardiomegaly with diffuse prominence of interstitium which may represent pulmonary edema. Alveolar density in the right medial base representing some superimposed edema or consolidation/infection. Venous Doppler Study 07/29/18 22:39 CONCLUSION: No DVT. Assessment and Plan - Plan 67-year-old male admitted with: Shortness of breath/CHF exacerbation/COPD exacerbation/pneumonia Chest x-ray significant for cardiomegaly with pulmonary edema and right medial base density concerning for pneumonia BNP 1805 Continue IV steroids and duo nebs IV Lasix Continue azithromycin and Rocephin for another 24 hours. Seems to be more fluid overloaded rather than pneumonia given the lack of fever, cough, and leukocytosis. Supplemental oxygen as needed Acute on chronic renal failure, hyperkalemia: - Patient with a history of obstructive uropathy. He has an indwelling Johnson catheter. -Consult nephrology for assistance. On Rocephin as above to cover for UTI - Renal diet Hypertension Continue home hydralazine and nifedipine Elevated troponin Troponin remained flat. Secondary to renal failure. No cardiovascular complaints. Discharge Planning: Anticipate a couple more days in the Hospital. Should be able to return home.
[2018-07-30] MEDS ORDERED: Influenza (Quadrivalent) Vaccine 0.5 ML Syringe IM ONE (17:00)
--- NOTE | 2018-07-30 19:05 | P.CONNP ---
History of Present Illness Service: Nephrology Consult date: 07/30/18 Requesting Physician: Imelda Meraz Reason for Consult: Acute on chronic kidney disease Primary Care Provider: [facility] Chief Complaint: Shortness of breath History of Present Illness: Patient is a 67-year-old -[place]an male with chronic kidney disease stage IV, history of cigarette smoking who started that he was getting increasingly short of breath and came to the emergency, patient has had a urinary tract infection and has been admitted his creatinine is 4.19, patient known to have chronic kidney disease follows at [facility] with a primary care physician has not seen any subspecialists. Review of Systems Constitutional: Reports lack of energy Eyes: Denies blind spots, Denies blurry vision, Denies bulging eyes, Denies change in vision, Denies double vision, Denies discharge, Denies dry eyes, Denies floaters, Denies irritation, Denies itchy eyes, Denies loss of vision, Denies pain, Denies requires corrective lenses, Denies sensitivity to light, Denies other Ears, Nose, Mouth, and Throat: Denies abnormal hearing, Denies bleeding gums, Denies bad breath, Denies change in voice, Denies dental pain, Denies difficulty swallowing, Denies dizziness, Denies dry mouth, Denies ear discharge , Denies ear pain, Denies facial pain, Denies headache(s), Denies hearing loss, Denies hoarseness, Denies lip swelling, Denies nosebleed, Denies mouth lesions, Denies mouth pain, Denies nasal congestion, Denies nasal discharge, Denies nasal obstruction, Denies nasal trauma, Denies neck lump, Denies neck pain, Denies nose pain, Denies pain with swallowing, Denies poor balance, Denies post nasal drip, Denies ringing in the ears, Denies sinus pain, Denies sinus pressure , Denies sore throat, Denies throat swelling, Denies tongue swelling, Denies other Cardiovascular: Reports foot swelling, Reports shortness of breath Respiratory: Reports shortness of breath Gastrointestinal: Reports other Genitourinary: Reports other Musculoskeletal: Reports muscle weakness Neurologic: Reports weakness Psychiatric: Reports anxiety Hematologic/Lymphatic: Denies easy bleeding, Denies easy bruising, Denies enlarged lymph nodes, Denies other Allergic/Immunologic: Denies GI upset with certain foods, Denies hives, Denies itchy eyes, Denies lip swelling, Denies seasonal runny nose, Denies throat swelling, Denies tongue swelling, Denies wheezing, Denies other PMFSH - History History Provided By: Patient - Medical History Medical History: Medical History (Last Reviewed 07/30/18 @ 19:02 by Sandor Cuevas MD) CHF (congestive heart failure) COPD (chronic obstructive pulmonary disease) Hypertension Renal disease Cocaine abuse Enlarged prostate - Surgical History Surgical History: Surgical History (Last Reviewed 07/30/18 @ 19:02 by Sandor Cuevas MD) No history of previous surgery - Family History Family History: Family History (Last Reviewed 07/29/18 @ 22:46 by Samia Saavedra MD) Other Hypertension Type 2 diabetes mellitus - Social History I have reviewed the patient's Social History: Yes - Tobacco History Second Hand Smoke Exposure: Yes Tobacco Use In Past 30 Days: Yes Smoking Status: Current every day smoker Tobacco Type: Cigarettes - Alcohol History How Often Do You Have a Drink Containing Alcohol: Never - Substance Use History Substance History: Active Abuse - Substance Use Type Crack/Cocaine Status: Active - Immunization History Tetanus Immunization: Unsure Hx Influenza Vaccine This Season: No Medications and Allergies Active Medications: Active Medications Acetaminophen (Tylenol) 650 mg PO Q4H PRN PRN Reason: Temp > 100.4 Al Hydroxide/Mg Hydroxide (Milk Of Nicky Henry) 30 ml PO Q12H PRN PRN Reason: Mild Constipation Albuterol (Duoneb Neb ([facility])) 1 ampul NEB Q4HR NEB [facility] Last Admin: 07/30/18 15:10 Dose: 1 ampul Bisacodyl (Dulcolax Supp) 10 mg RECTAL DAILY PRN PRN Reason: SEVERE CONSITIPATION Furosemide (Lasix Inj) 40 mg IV.PUSH BID@0900,1800 [facility] Last Admin: 07/30/18 17:13 Dose: 40 mg Heparin Sodium (Porcine) (Heparin Inj) 5,000 units SQ Q12H [facility] Last Admin: 07/30/18 12:35 Dose: 5,000 units Hydralazine HCl (Apresoline) 50 mg PO TID [facility] Last Admin: 07/30/18 17:13 Dose: Not Given Azithromycin 500 mg/ Sodium (Chloride) 250 mls @ 250 mls/hr IV.SIG Q24H [facility] Ceftriaxone Sodium 1,000 mg/ (Sodium Chloride) 100 mls @ 200 mls/hr IV.SIG Q24H [facility] Lactulose (Lactulose Liq) 30 ml PO DAILY PRN PRN Reason: SEVERE CONSITIPATION Methylprednisolone Sodium Succinate (Solumedrol Inj) 60 mg IV.PUSH Q6H [facility] Last Admin: 07/30/18 17:12 Dose: 60 mg Nifedipine (Procardia Xl) 60 mg PO DAILY [facility] Last Admin: 07/30/18 10:05 Dose: Not Given Ondansetron HCl (Zofran Inj) 4 mg IV.PUSH Q6H PRN PRN Reason: NAUSEA OR VOMITING Senna/Docusate Sodium (Mary Beth-Colace) 1 tab PO BID [facility] Last Admin: 07/30/18 08:50 Dose: 1 tab Sennosides (Senokot) 17.2 mg PO Q12H PRN PRN Reason: Moderate Constipation Sodium Chloride (Ns Flush) 2 ml IV.FLUSH PRN PRN PRN Reason: FLUSH AFTER USING IV ACCESS Sodium Chloride (Ns Flush) 2 ml IV.FLUSH BID [facility] Last Admin: 07/30/18 10:05 Dose: 2 ml Allergies Allergy/AdvReac Type Severity Reaction Status Date / Time No Known Allergies Allergy Verified 07/29/18 19:02 Home Medications Medication Instructions Recorded Confirmed Type multivitamin 1 tab PO DAILY 06/19/18 07/29/18 History nifedipine 60 mg PO DAILY 06/19/18 07/29/18 History hydralazine 50 mg PO TID 07/29/18 07/29/18 History latanoprost 1 drp OPHTHALMIC (EYE) QPM 07/29/18 07/29/18 History Exam Vital signs: Vital Signs 07/29/18 19:10 07/29/18 19:12 07/29/18 19:25 Temperature Pulse Rate 83 81 Respiratory Rate 18 24 Blood Pressure 122/65 Pulse Oximetry 95 96 100 07/29/18 23:05 07/29/18 23:32 07/30/18 00:00 Temperature 98.0 F Pulse Rate 83 85 86 Respiratory Rate 24 18 20 Blood Pressure 103/65 115/60 Pulse Oximetry 97 94 L 07/30/18 01:00 07/30/18 02:00 07/30/18 03:00 Temperature 97.8 F Pulse Rate 82 84 75 Respiratory Rate 16 Blood Pressure 110/49 L Pulse Oximetry 96 07/30/18 03:36 07/30/18 04:00 07/30/18 05:00 Temperature Pulse Rate 80 77 80 Respiratory Rate Blood Pressure Pulse Oximetry 07/30/18 06:00 07/30/18 07:00 07/30/18 07:59 Temperature 98.6 F Pulse Rate 69 79 82 Respiratory Rate 20 18 Blood Pressure 106/70 Pulse Oximetry 97 07/30/18 08:00 07/30/18 08:54 07/30/18 09:00 Temperature Pulse Rate 78 85 82 Respiratory Rate Blood Pressure 115/63 Pulse Oximetry 97 07/30/18 10:00 07/30/18 11:00 07/30/18 12:00 Temperature 98.2 F Pulse Rate 82 89 86 Respiratory Rate 18 Blood Pressure 120/65 Pulse Oximetry 99 07/30/18 12:26 07/30/18 13:00 07/30/18 14:00 Temperature Pulse Rate 85 92 H 90 Respiratory Rate 18 Blood Pressure Pulse Oximetry 07/30/18 15:00 07/30/18 15:12 07/30/18 16:00 Temperature 98.1 F Pulse Rate 88 90 89 Respiratory Rate 18 18 Blood Pressure 115/67 Pulse Oximetry 97 07/30/18 17:00 07/30/18 18:00 Temperature Pulse Rate 88 96 H Respiratory Rate Blood Pressure Pulse Oximetry Intake & Output 07/29/18 07/30/18 07/30/18 18:59 06:59 18:59 Intake Total 350 / 350 1160 / 1160 Output Total 1650 / 1650 2099 / 2099 Balance -1300 / -1300 -940 / -940 Weight 68.039 kg 71.4 kg Intake: IV 350 / 350 Azithromycin Inj 500 MG In NS 250 / 250 Inj 250 ML @ 250 mls/hr IV.SIG ONCE ONE Rx#:[id number] Rocephin Inj 1,000 MG In NS Inj 100 / 100 100 ML @ 200 mls/hr IV.SIG ONCE ONE Rx#:[id number] Oral 1160 / 1160 Output: Urine Amount (Catheter) 1650 / 1650 2099 / 2099 Indwelling Urethral Catheter 1649 / 1650 2099 Other: Date of Last Bowel Movement 07/28/18 Narrative: GENERAL: Well-nourished, well-developed patient. SKIN: Warm and dry. HEAD: Normocephalic. EYES: No scleral icterus. No injection or drainage. NECK: Supple, trachea midline. No JVD or lymphadenopathy. CARDIOVASCULAR: Regular rate and rhythm without murmurs, gallops, or rubs. RESPIRATORY: Breath sounds diminished at bases GASTROINTESTINAL: Abdomen soft, non-tender, nondistended. EXTREMITIES: Mild edema NEUROLOGICAL: Awake, alert, and oriented x 3. Non-focal. Results - Lab Results 07/31/18 05:22 07/31/18 05:22 Most recent lab results Calcium 8.2 mg/dL (8.5-10.1) L 07/30/18 04:38 Assessment and Plan - Assessment (1) UTI (urinary tract infection) Code(s): N39.0 - Urinary tract infection, site not specified Status: Acute (2) BPH (benign prostatic hyperplasia) Code(s): N40.0 - Benign prostatic hyperplasia without lower urinary tract symptoms Status: Acute (3) Acute on chronic kidney failure Code(s): N17.9 - Acute kidney failure, unspecified; N18.9 - Chronic kidney disease, unspecified Status: Acute (4) Acute hyperkalemia Code(s): E87.5 - Hyperkalemia Status: Acute (5) Acute exacerbation of CHF (congestive heart failure) Code(s): I50.9 - Heart failure, unspecified Status: Acute - Plan Patient has hyperkalemia and should be on renal diet 2 g sodium and potassium restriction along with low protein diet was discussed with him Avoid nephrotoxic agents Avoid nonsteroidal anti-inflammatory drugs Avoid dye study Treat UTI follow culture KARSON, complements, protein electrophoresis ordered Give Kayexalate as needed He has a GFR of 17 stage IV chronic kidney disease which can be followed as outpatient With dietary restriction and blood pressure control and will need loop diuretic He was seen recently by Dr. Ulloa will ask Dr. Gimenez to follow (3) Acute on chronic kidney failure Qualifiers: Acute renal failure type: unspecified Chronic kidney disease stage: stage 4 ( severe) Qualified Code(s): N17.9 - Acute kidney failure, unspecified; N18.4 - Chronic kidney disease, stage 4 (severe) (5) Acute exacerbation of CHF (congestive heart failure) Qualifiers: Heart failure type: unspecified Qualified Code(s): I50.9 - Heart failure, unspecified
[2018-07-30] MEDS ORDERED: Azithromycin Inj 500 MG in Sodium Chlor 0.9% Inj 250 ML IV.SIG SCH (22:00)
[2018-07-31] MEDS: MethylPREDNISolone Sod Succinate Inj 40 MG/ML Vial IV.PUSH SCH ×2 (05:13→12:36)
[2018-07-31 05:55] LABS: Hematocrit 35.7 % (39.0-51.0); Hemoglobin 11.6 gm/dL (13.0-17.0); Mean Corpuscular HGB Conc 32.5 % (32.0-36.0); Mean Corpuscular Hemoglobin 29.2 pg (27.0-34.0); Mean Corpuscular Volume 89.9 fL (80.0-100.0); Mean Platelet Volume 9.1 fL (7.0-11.0); Platelet Count 151 th/mm3 (150-450); Red Blood Count 3.97 mil/mm3 (4.50-5.90); Red Cell Distribution Width 16.8 % (11.6-17.2); White Blood Count 8.6 th/mm3 (4.0-11.0)
[2018-07-31 06:19] LABS: Calcium 8.1 mg/dL (8.5-10.1); Carbon Dioxide 21.4 meq/L (21.0-32.0); Potassium 5.3 meq/L (3.5-5.1)
[2018-07-31 06:52] LABS: Hepatitits B Surface Antigen Nonreactive (Nonreactive)
[2018-07-31 07:03] LABS: Hepatitis A IgM Antibody Nonreactive (Nonreactive)
[2018-07-31] MEDS: Senna/Docusate Sodium 8.6/50 MG Tablet PO SCH ×2 (09:16→22:13)
[2018-07-31] MEDS: hydrALAZINE 50 MG Tablet PO SCH ×3 (09:17→18:53)
[2018-07-31] MEDS: Heparin - SQ 10,000 UNITS/ML Vial SQ SCH ×2 (12:37→22:35)
--- NOTE | 2018-07-31 14:28 | P.PNIM ---
Subjective Interval history: Patient reports he is feeling better, breathing more comfortably. No chest pain. Physical Exam Vital signs: Vital Signs 07/30/18 15:00 07/30/18 15:12 07/30/18 16:00 Temperature 98.1 F Pulse Rate 88 90 89 Respiratory Rate 18 18 Blood Pressure 115/67 Pulse Oximetry 97 07/30/18 17:00 07/30/18 18:00 07/30/18 19:00 Temperature 98.5 F Pulse Rate 88 96 H 93 H Respiratory Rate 20 Blood Pressure 126/69 Pulse Oximetry 95 07/30/18 20:00 07/30/18 21:00 07/30/18 22:00 Temperature Pulse Rate 92 H 96 H 92 H Respiratory Rate Blood Pressure Pulse Oximetry 95 07/30/18 23:00 07/31/18 00:00 07/31/18 01:00 Temperature 98.6 F Pulse Rate 91 H 88 88 Respiratory Rate 20 20 Blood Pressure 111/60 Pulse Oximetry 98 07/31/18 02:00 07/31/18 03:00 07/31/18 04:00 Temperature 98.3 F Pulse Rate 86 87 84 Respiratory Rate 20 20 Blood Pressure 127/85 Pulse Oximetry 97 07/31/18 05:00 07/31/18 06:00 07/31/18 07:00 Temperature 97.9 F Pulse Rate 80 80 77 Respiratory Rate 16 Blood Pressure 126/79 Pulse Oximetry 97 07/31/18 08:00 07/31/18 08:35 07/31/18 09:00 Temperature Pulse Rate 82 80 Respiratory Rate Blood Pressure Pulse Oximetry 97 07/31/18 10:00 07/31/18 11:00 07/31/18 11:59 Temperature 98.0 F Pulse Rate 82 85 86 Respiratory Rate 16 15 Blood Pressure 123/75 Pulse Oximetry 98 07/31/18 12:00 07/31/18 13:00 07/31/18 13:02 Temperature Pulse Rate 80 92 H 88 Respiratory Rate Blood Pressure Pulse Oximetry Intake & Output 07/30/18 07/31/18 07/31/18 18:59 06:59 18:59 Intake Total 1160 / 1160 590 / 590 Output Total 2100 / 2100 1800 / 1800 Balance -940 / -940 -1210 / -1210 Weight 70 kg Intake: IV 350 / 350 Azithromycin Inj 500 MG In NS 250 / 250 Inj 250 ML @ 250 mls/hr IV.SIG Q24H [facility] Rx#:[id number] Rocephin Inj 1,000 MG In NS Inj 100 / 100 100 ML @ 200 mls/hr IV.SIG Q24H [facility] Rx#:[id number] Oral 1160 / 1160 240 / 240 Output: Urine Amount (Catheter) 2099 1800 / 1800 Indwelling Urethral Catheter 2099 1800 / 1800 Other: Date of Last Bowel Movement 07/28/18 07/28/18 07/28/18 Narrative: GENERAL: This is a well-nourished, well-developed patient, in no apparent distress. CARDIOVASCULAR: Normal rate and regular rhythm without murmurs, gallops, or rubs. RESPIRATORY: Good respiratory efforts. Breath sounds equal and clear to auscultation bilaterally. GASTROINTESTINAL: Abdomen soft, non-tender, non-distended. Normal active bowel sounds MUSCULOSKELETAL:1+ bilateral lower extremity edema. NEURO: Alert & Oriented x4 to person, place, time, situation. Moves all ext x4 PSYCH: Appropriate mood and affect. - Urinary Catheter Management Indwelling Urethral Catheter Cath placed during this visit: yes, but has since been removed by the nurse Reason for continuing: Hourly intake/output Insertion date: 07/29/18 Insertion time: 22:30 Removal date: 07/29/18 Removal time: 22:00 Results - Labs CBC & Chem 7: 07/31/18 05:22 07/31/18 05:22 Laboratory Results - last 24 hr 07/29/18 07/30/18 07/31/18 22:45 19:59 05:22 WBC RBC Hgb Hct MCV MCH MCHC RDW Plt Count MPV Sodium Potassium Chloride Carbon Dioxide Anion Gap BUN Creatinine Estimated GFR Random Glucose Calcium Total Protein (PEP) 7.4 PTH Intact 174.1 H Urine Color Yellow Urine Clarity Cloudy H Urine pH 5.0 Ur Specific Loraine 1.008 Urine Protein Negative Urine Glucose (UA) Negative Urine Ketones Negative Urine Occult Blood Small H Urine Nitrate Negative Urine Bilirubin Negative Urine Urobilinogen Less than 2 Ur Leukocyte Esterase Large H Urine RBC 9 H Urine WBC 155 H Urine WBC Clumps Many H Urine Bacteria Many H Urine Mucus Few H Micro UA Comment Cath-culture ind Urine Culture Comments Cath-cult indicated Complement C3 84 L Complement C4 Hepatitis A IgM Ab Nonreactive Hep Bs Antigen Nonreactive Hep B Core IgM Ab Nonreactive Hep C IgG Ab Nonreactive 07/31/18 07/31/18 05:22 05:22 WBC 8.6 RBC 3.97 L Hgb 11.6 L Hct 35.7 L MCV 89.9 MCH 29.2 MCHC 32.5 RDW 16.8 Plt Count 151 MPV 9.1 Sodium 143 Potassium 5.3 H Chloride 110 H Carbon Dioxide 21.4 Anion Gap 12 BUN 55 H Creatinine 4.29 H Estimated GFR 17 L Random Glucose 165 H Calcium 8.1 L Total Protein (PEP) PTH Intact Urine Color Urine Clarity Urine pH Ur Specific Loraine Urine Protein Urine Glucose (UA) Urine Ketones Urine Occult Blood Urine Nitrate Urine Bilirubin Urine Urobilinogen Ur Leukocyte Esterase Urine RBC Urine WBC Urine WBC Clumps Urine Bacteria Urine Mucus Micro UA Comment Urine Culture Comments Complement C3 Complement C4 25 Hepatitis A IgM Ab Hep Bs Antigen Hep B Core IgM Ab Hep C IgG Ab Microbiology 07/29/18 19:00 Blood - Peripheral Aerobic Blood Culture - Preliminary No growth in 2 days 07/29/18 19:00 Blood - Peripheral Anaerobic Blood Culture - Preliminary No growth in 2 days 07/29/18 19:00 Blood - Peripheral Aerobic Blood Culture - Preliminary No growth in 2 days 07/29/18 19:00 Blood - Peripheral Anaerobic Blood Culture - Preliminary No growth in 2 days 07/29/18 22:45 Catheterized Urine Urine Culture - Preliminary Klebsiella oxytoca Klebsiella pneumoniae Group D Enterococcus Assessment and Plan - Plan 67-year-old male admitted with: Shortness of breath/CHF exacerbation/COPD exacerbation/pneumonia Chest x-ray significant for cardiomegaly with pulmonary edema and right medial base density concerning for pneumonia BNP 1805 Transition to oral steroid and an oral Lasix. Discontinue IV antibiotics. Transition to cefuroxime to cover both pulmonary and urinary tract infection. Seems to be more fluid overloaded rather than pneumonia given the lack of fever, cough, and leukocytosis. Supplemental oxygen as needed Acute on chronic renal failure, hyperkalemia: - Patient with a history of obstructive uropathy. He has an indwelling Johnson catheter. -Appreciate nephrology input. Multiple serologies pending. On Rocephin as above to cover for UTI - Renal diet - Hyperkalemia mildly improved. Klebsiella UTI: - Sensitivity profile noted. Transition to oral cefuroxime. Hypertension Continue home hydralazine and nifedipine Elevated troponin Troponin remained flat. Secondary to renal failure. No cardiovascular complaints. Discharge Planning: Probable discharge tomorrow if renal function stable. Should be able to return home.
--- NOTE | 2018-07-31 15:56 | P.PNNP ---
Subjective Interval history: Patient is a 67-year-old -French male with chronic kidney disease stage IV, history of cigarette smoking who started that he was getting increasingly short of breath and came to the emergency, patient has had a urinary tract infection and has been admitted his creatinine is 4.19, patient known to have chronic kidney disease follows at [facility] with a primary care physician has not seen any subspecialists. 07/31 Resting comfortably. Shortness of breath has improved. Denies any nausea , vomiting, or loose stools. Has indwelling kirkland catheter. <Margoth Michel - Last Filed: 07/31/18 15:37> Physical Exam Vital signs: Vital Signs 07/30/18 16:00 07/30/18 17:00 07/30/18 18:00 Temperature Pulse Rate 89 88 96 H Respiratory Rate Blood Pressure Pulse Oximetry 07/30/18 19:00 07/30/18 20:00 07/30/18 21:00 Temperature 98.5 F Pulse Rate 93 H 92 H 96 H Respiratory Rate 20 Blood Pressure 126/69 Pulse Oximetry 95 95 07/30/18 22:00 07/30/18 23:00 07/31/18 00:00 Temperature 98.6 F Pulse Rate 92 H 91 H 88 Respiratory Rate 20 20 Blood Pressure 111/60 Pulse Oximetry 98 07/31/18 01:00 07/31/18 02:00 07/31/18 03:00 Temperature 98.3 F Pulse Rate 88 86 87 Respiratory Rate 20 Blood Pressure 127/85 Pulse Oximetry 97 07/31/18 04:00 07/31/18 05:00 07/31/18 06:00 Temperature Pulse Rate 84 80 80 Respiratory Rate 20 Blood Pressure Pulse Oximetry 07/31/18 07:00 07/31/18 08:00 07/31/18 08:35 Temperature 97.9 F Pulse Rate 77 82 Respiratory Rate 16 Blood Pressure 126/79 Pulse Oximetry 97 97 07/31/18 09:00 07/31/18 10:00 07/31/18 11:00 Temperature 98.0 F Pulse Rate 80 82 85 Respiratory Rate 16 Blood Pressure 123/75 Pulse Oximetry 98 07/31/18 11:59 07/31/18 12:00 07/31/18 13:00 Temperature Pulse Rate 86 80 92 H Respiratory Rate 15 Blood Pressure Pulse Oximetry 07/31/18 13:02 Temperature Pulse Rate 88 Respiratory Rate Blood Pressure Pulse Oximetry Intake & Output 07/30/18 07/31/18 07/31/18 18:59 06:59 18:59 Intake Total 1160 / 1160 590 / 590 Output Total 2099 / 1800 Balance -940 / -940 -1210 / -1210 Weight 70 kg Intake: IV 350 / 350 Azithromycin Inj 500 MG In NS 250 / 250 Inj 250 ML @ 250 mls/hr IV.SIG Q24H [facility] Rx#:[id number] Rocephin Inj 1,000 MG In NS Inj 100 / 100 100 ML @ 200 mls/hr IV.SIG Q24H [facility] Rx#:[id number] Oral 1160 / 1160 240 / 240 Output: Urine Amount (Catheter) 2099 / 1800 Indwelling Urethral Catheter 2099 1800 Other: Date of Last Bowel Movement 07/28/18 07/28/18 07/28/18 Narrative: GENERAL: Well-nourished, well-developed patient. Alert and oriented. SKIN: Warm and dry. HEAD: Normocephalic. EYES: No scleral icterus. No injection or drainage. NECK: Supple, trachea midline. No JVD or lymphadenopathy. CARDIOVASCULAR: Regular rate and rhythm without murmurs, gallops, or rubs. RESPIRATORY: Breath sounds diminished at bases GASTROINTESTINAL: Abdomen soft, non-tender, nondistended. GENITOURINARY: Indwelling Kirkland catheter - Urinary Catheter Management Indwelling Urethral Catheter Cath placed during this visit: yes, but has since been removed by the nurse Reason for continuing: Hourly intake/output Insertion date: 07/29/18 Insertion time: 22:30 Removal date: 07/29/18 Removal time: 22:00 <Margoth Michel - Last Filed: 07/31/18 15:37> - Urinary Catheter Management Indwelling Urethral Catheter Cath placed during this visit: no <Valery Gimenez - Last Filed: 08/05/18 17:20> Assessment and Plan - Assessment (1) Acute on chronic kidney failure Code(s): N17.9 - Acute kidney failure, unspecified; N18.9 - Chronic kidney disease, unspecified Status: Acute Qualifiers: Acute renal failure type: unspecified Chronic kidney disease stage: stage 4 (severe) Qualified Code(s): N17.9 - Acute kidney failure, unspecified; N18.4 - Chronic kidney disease, stage 4 (severe) Plan: Chronic kidney disease stage IV, follows at [facility] with a primary care physician has not seen any subspecialists in over 1 year. Baseline creatinine 3.5 to 3.7 so some acute worsening. Creatinine 4.19 - > 4.27 Good urinary output Plan Renal diet, low potassium, low sodium diet recommended Avoid nephrotoxic agents including NSAID, IV contrast, and aminoglycosides. KARSON, complements, protein electrophoresis ordered. C3 low, C4 normal, KARSON and SPEP pending. Has had a Positive KARSON in past, anti DNA DS ordered. Give Kayexalate as needed for hyperkalemia, low potassium diet discussed Continue Furosemide BID, if creatinine continues to increase may need to decrease labs in AM (2) UTI (urinary tract infection) Code(s): N39.0 - Urinary tract infection, site not specified Status: Acute Plan: Treat UTI, follow culture (3) BPH (benign prostatic hyperplasia) Code(s): N40.0 - Benign prostatic hyperplasia without lower urinary tract symptoms Status: Acute Plan: Indwelling Kirkland catheter (4) Acute hyperkalemia Code(s): E87.5 - Hyperkalemia Status: Acute Plan: Potassium level improved at 5.7 to 5.3 today. Recheck in AM (5) Acute exacerbation of CHF (congestive heart failure) Code(s): I50.9 - Heart failure, unspecified Status: Acute Qualifiers: Heart failure type: unspecified Qualified Code(s): I50.9 - Heart failure, unspecified Plan: On lasix BID <Margoth Michel - Last Filed: 07/31/18 15:37> - Assessment (1) Acute on chronic kidney failure Code(s): N17.9 - Acute kidney failure, unspecified; N18.9 - Chronic kidney disease, unspecified Status: Acute Qualifiers: Acute renal failure type: unspecified Chronic kidney disease stage: stage 4 (severe) Qualified Code(s): N17.9 - Acute kidney failure, unspecified; N18.4 - Chronic kidney disease, stage 4 (severe) Plan: Patient seen and examined, agree with above. Creatinine increase slightly. Need close follow up, continue Lasix. (2) UTI (urinary tract infection) Code(s): N39.0 - Urinary tract infection, site not specified Status: Acute (3) BPH (benign prostatic hyperplasia) Code(s): N40.0 - Benign prostatic hyperplasia without lower urinary tract symptoms Status: Acute (4) Acute hyperkalemia Code(s): E87.5 - Hyperkalemia Status: Acute (5) Acute exacerbation of CHF (congestive heart failure) Code(s): I50.9 - Heart failure, unspecified Status: Acute Qualifiers: Heart failure type: unspecified Qualified Code(s): I50.9 - Heart failure, unspecified <Valery Gimenez - Last Filed: 08/05/18 17:20>
[2018-07-31] MEDS: predniSONE 20 MG Tablet PO SCH (22:14)
[2018-08-01 03:48] VITALS: RESP 16
[2018-08-01 05:48] LABS: Baso % (Auto) 0.3 % (0.0-2.0); Hemoglobin 11.8 gm/dL (13.0-17.0); Lymph # (Auto) 0.5 th/mm3 (1.0-4.8); Lymph % (Auto) 5.1 % (9.0-44.0); Mean Corpuscular HGB Conc 32.7 % (32.0-36.0); Mean Corpuscular Volume 88.9 fL (80.0-100.0); Mean Platelet Volume 8.8 fL (7.0-11.0); Mono # (Auto) 0.5 th/mm3 (0.0-0.9); Mono % (Auto) 4.4 % (0.0-8.0); Neut # (Auto) 9.4 th/mm3 (1.8-7.7); Neut % (Auto) 90.2 % (16.0-70.0); Platelet Count 155 th/mm3 (150-450); Red Blood Count 4.05 mil/mm3 (4.50-5.90); Red Cell Distribution Width 16.2 % (11.6-17.2); White Blood Count 10.4 th/mm3 (4.0-11.0)
[2018-08-01 06:01] LABS: Calcium 8.1 mg/dL (8.5-10.1); Carbon Dioxide 23.9 meq/L (21.0-32.0); Phosphorus 4.6 mg/dL (2.5-4.9); Potassium 4.9 meq/L (3.5-5.1)
[2018-08-01 08:45] VITALS: O2SAT 97
[2018-08-01] MEDS: predniSONE 20 MG Tablet PO SCH (08:53)
[2018-08-01] MEDS: hydrALAZINE 50 MG Tablet PO SCH (08:53)
[2018-08-01] MEDS: Senna/Docusate Sodium 8.6/50 MG Tablet PO SCH (08:54)
[2018-08-01] MEDS ORDERED: Furosemide 40 MG Tablet PO SCH (09:00)
[2018-08-01 09:11] VITALS: BP 110/64; TEMP 97.9
--- NOTE | 2018-08-01 09:34 | P.PNNP ---
Subjective Interval history: Patient is a 67-year-old -[place] male with chronic kidney disease stage IV, history of cigarette smoking who started that he was getting increasingly short of breath and came to the emergency, patient has had a urinary tract infection and has been admitted his creatinine is 4.19, patient known to have chronic kidney disease follows at [facility] with a primary care physician has not seen any subspecialists. 07/31 Resting comfortably. Shortness of breath has improved. Denies any nausea , vomiting, or loose stools. Has indwelling kirkland catheter. 08/01 Resting comfortably eating breakfast. Denies any shortness of breath, chest pain, nausea, or vomiting. Creatinine is slightly improved at 4.15. <Margoth Michel - Last Filed: 08/01/18 09:27> Physical Exam Vital signs: Vital Signs 07/31/18 10:00 07/31/18 11:00 07/31/18 11:59 Temperature 98.0 F Pulse Rate 82 85 86 Respiratory Rate 16 15 Blood Pressure 123/75 Pulse Oximetry 98 07/31/18 12:00 07/31/18 13:00 07/31/18 13:02 Temperature Pulse Rate 80 92 H 88 Respiratory Rate Blood Pressure Pulse Oximetry 07/31/18 15:00 07/31/18 15:42 07/31/18 16:00 Temperature 98.2 F Pulse Rate 85 85 86 Respiratory Rate 18 15 Blood Pressure 118/77 Pulse Oximetry 97 07/31/18 17:00 07/31/18 18:00 07/31/18 18:52 Temperature Pulse Rate 84 83 88 Respiratory Rate Blood Pressure 111/69 Pulse Oximetry 96 07/31/18 19:00 07/31/18 20:00 07/31/18 20:18 Temperature 97.8 F Pulse Rate 80 80 82 Respiratory Rate 18 17 Blood Pressure 110/66 Pulse Oximetry 98 98 07/31/18 21:00 07/31/18 22:00 07/31/18 23:00 Temperature 98 F Pulse Rate 88 85 78 Respiratory Rate Blood Pressure 114/64 Pulse Oximetry 98 07/31/18 23:06 08/01/18 00:00 08/01/18 01:00 Temperature Pulse Rate 82 85 81 Respiratory Rate 17 Blood Pressure Pulse Oximetry 08/01/18 03:00 08/01/18 03:44 08/01/18 04:00 Temperature 97.5 F L Pulse Rate 78 83 78 Respiratory Rate 18 16 Blood Pressure 114/64 Pulse Oximetry 98 08/01/18 05:33 08/01/18 07:00 08/01/18 08:41 Temperature 97.9 F Pulse Rate 78 76 82 Respiratory Rate 18 16 Blood Pressure 110/64 Pulse Oximetry 98 97 Intake & Output 07/31/18 08/01/18 08/01/18 18:59 06:59 18:59 Intake Total 1440 / 1440 480 / 480 Output Total 2250 / 2250 600 / 600 Balance -810 / -810 -120 / -120 Weight 70.5 kg Intake: Oral 1440 / 1440 480 / 480 Output: Urine 600 / 600 Urine Amount (Catheter) 2250 / 2250 Indwelling Urethral Catheter 2250 / 2250 Other: Date of Last Bowel Movement 07/28/18 07/28/18 07/31/18 Narrative: GENERAL: Well-nourished, well-developed patient. Alert and oriented. SKIN: Warm and dry. HEAD: Normocephalic. EYES: No scleral icterus. No injection or drainage. NECK: Supple, trachea midline. No JVD or lymphadenopathy. CARDIOVASCULAR: Regular rate and rhythm without murmurs, gallops, or rubs. RESPIRATORY: Breath sounds diminished at bases GASTROINTESTINAL: Abdomen soft, non-tender, nondistended. GENITOURINARY: Indwelling Kirkland catheter - Urinary Catheter Management Indwelling Urethral Catheter Cath placed during this visit: yes, but has since been removed by the nurse Reason for continuing: Hourly intake/output Insertion date: 07/29/18 Insertion time: 22:30 Removal date: 07/29/18 Removal time: 22:00 <Margoth Michel - Last Filed: 08/01/18 09:27> - Urinary Catheter Management Indwelling Urethral Catheter Cath placed during this visit: no <Valery Gimenez - Last Filed: 08/05/18 17:23> Assessment and Plan - Assessment (1) Acute on chronic kidney failure Code(s): N17.9 - Acute kidney failure, unspecified; N18.9 - Chronic kidney disease, unspecified Status: Acute Qualifiers: Acute renal failure type: unspecified Chronic kidney disease stage: stage 4 (severe) Qualified Code(s): N17.9 - Acute kidney failure, unspecified; N18.4 - Chronic kidney disease, stage 4 (severe) Plan: Chronic kidney disease stage IV, follows at [facility] with a primary care physician has not seen any subspecialists in over 1 year. Baseline creatinine 3.5 to 3.7 so some acute worsening. Creatinine 4.19 - > 4.27 -> 4.15 Good urinary output Plan Continue Renal diet, low potassium, low sodium. Avoid nephrotoxic agents including NSAID, IV contrast, and aminoglycosides. C3 low, C4 normal, SPEP normal, KARSON and anti DNA DS pending. Continue Furosemide daily labs in AM (2) UTI (urinary tract infection) Code(s): N39.0 - Urinary tract infection, site not specified Status: Acute Plan: Treat UTI, follow culture (3) BPH (benign prostatic hyperplasia) Code(s): N40.0 - Benign prostatic hyperplasia without lower urinary tract symptoms Status: Acute Plan: Indwelling Kirkland catheter (4) Acute hyperkalemia Code(s): E87.5 - Hyperkalemia Status: Acute Plan: Resolved at 4.9 Recheck in AM (5) Acute exacerbation of CHF (congestive heart failure) Code(s): I50.9 - Heart failure, unspecified Status: Acute Qualifiers: Heart failure type: unspecified Qualified Code(s): I50.9 - Heart failure, unspecified Plan: On lasix daily <Margoth Michel - Last Filed: 08/01/18 09:27> - Assessment (1) Acute on chronic kidney failure Code(s): N17.9 - Acute kidney failure, unspecified; N18.9 - Chronic kidney disease, unspecified Status: Acute Qualifiers: Acute renal failure type: unspecified Chronic kidney disease stage: stage 4 (severe) Qualified Code(s): N17.9 - Acute kidney failure, unspecified; N18.4 - Chronic kidney disease, stage 4 (severe) Plan: Patient seen and examined, agree with above. Creatinine stable at 4.1-4.2, possibly at his baseline. Has advance stage 4 chronic kidney disease. (2) UTI (urinary tract infection) Code(s): N39.0 - Urinary tract infection, site not specified Status: Acute (3) BPH (benign prostatic hyperplasia) Code(s): N40.0 - Benign prostatic hyperplasia without lower urinary tract symptoms Status: Acute (4) Acute hyperkalemia Code(s): E87.5 - Hyperkalemia Status: Acute (5) Acute exacerbation of CHF (congestive heart failure) Code(s): I50.9 - Heart failure, unspecified Status: Acute Qualifiers: Heart failure type: unspecified Qualified Code(s): I50.9 - Heart failure, unspecified <Valery Gimenez - Last Filed: 08/05/18 17:23>
[2018-08-01] MEDS: Heparin - SQ 10,000 UNITS/ML Vial SQ SCH (10:35)
--- NOTE | 2018-08-01 11:05 | P.DS ---
Date of admission: 07/29/18 21:03 Primary care physician: [facility] Brief History from admission: HPI from the admitting physician: 67-year-old male with a past medical history significant for COPD, CHF (EF of 45 -50% on 06/20/18), chronic kidney disease and hypertension presents to the emergency department for the evaluation of shortness of breath. The patient reports that starting this afternoon he began having difficulty breathing which subsequently worsened. Per EMS report the patient was satting 82% on room air on their arrival. The patient was recently hospitalized for CHF exacerbation at which time he was diagnosed with CHF. He endorses intermittent bilateral lower extremity edema that worsened yesterday. He denies any chest pain. Endorses a chronic, nonproductive cough. No abdominal pain. No nausea/vomiting /diarrhea. No fevers/chills. No lateralizing signs/symptoms. Patient update on day of discharge: Patient reports is feeling better overall. He denies chest pain or shortness of breath. We discussed discharge planning at length and the need to follow-up outpatient with PCP and nephrology. All of his questions were answered. DS: Diagnosis - Discharge Diagnosis (1) Acute exacerbation of CHF (congestive heart failure) Status: Acute (2) [id number] renal failure Status: Acute DS: Medications - Discharge Medications Prescriptions: cefuroxime axetil 500 mg PO Q12HR #6 tab furosemide 40 mg PO DAILY #30 tab DS: Summary Hospital Course: 67-year-old male admitted and treated for the following: Shortness of breath/CHF exacerbation/COPD exacerbation/pneumonia Chest x-ray significant for cardiomegaly with pulmonary edema and right medial base density concerning for pneumonia BNP 1805 The patient was treated with Lasix and steroid. His condition significantly improved. He was transitioned to oral Lasix and oral steroids. He was treated with antibiotics as well for UTI and possible pneumonia. Acute on chronic renal failure, hyperkalemia: - Patient with a history of obstructive uropathy. He has an indwelling Johnson catheter. -Appreciate nephrology input. Multiple serologies pending. -Renal function stabilized. He is nonoliguric. He will have a repeat BMP in a couple of days and follow-up outpatient with PCP at the [facility] and nephrology. Klebsiella UTI: - Sensitivity profile noted. Transitioned to oral cefuroxime. Hypertension Continue home hydralazine and nifedipine Elevated troponin Troponin remained flat. Secondary to renal failure. No cardiovascular complaints. - Time Spent with Patient Total time spent providing and/or coordinating discharge services: Greater than 30 minutes - Quality: VTE Deep Vein Thrombosis/Pulmonary Embolism Present on Admission: No Exam Vital signs: Vital Signs 07/31/18 11:59 07/31/18 12:00 07/31/18 13:00 Temperature Pulse Rate 86 80 92 H Respiratory Rate 15 Blood Pressure Pulse Oximetry 07/31/18 13:02 07/31/18 15:00 07/31/18 15:42 Temperature 98.2 F Pulse Rate 88 85 85 Respiratory Rate 18 15 Blood Pressure 118/77 Pulse Oximetry 97 07/31/18 16:00 07/31/18 17:00 07/31/18 18:00 Temperature Pulse Rate 86 84 83 Respiratory Rate Blood Pressure Pulse Oximetry 07/31/18 18:52 07/31/18 19:00 07/31/18 20:00 Temperature 97.8 F Pulse Rate 88 80 80 Respiratory Rate 18 Blood Pressure 111/69 110/66 Pulse Oximetry 96 98 98 07/31/18 20:18 07/31/18 21:00 07/31/18 22:00 Temperature Pulse Rate 82 88 85 Respiratory Rate 17 Blood Pressure Pulse Oximetry 07/31/18 23:00 07/31/18 23:06 08/01/18 00:00 Temperature 98 F Pulse Rate 78 82 85 Respiratory Rate 17 Blood Pressure 114/64 Pulse Oximetry 98 08/01/18 01:00 08/01/18 03:00 08/01/18 03:44 Temperature 97.5 F L Pulse Rate 81 78 83 Respiratory Rate 18 16 Blood Pressure 114/64 Pulse Oximetry 98 08/01/18 04:00 08/01/18 05:33 08/01/18 07:00 Temperature 97.9 F Pulse Rate 78 78 76 Respiratory Rate 18 Blood Pressure 110/64 Pulse Oximetry 98 08/01/18 08:41 Temperature Pulse Rate 82 Respiratory Rate 16 Blood Pressure Pulse Oximetry 97 Intake & Output 07/31/18 08/01/18 08/01/18 18:59 06:59 18:59 Intake Total 1440 / 1440 480 / 480 Output Total 2250 / 2250 600 / 600 Balance -810 / -810 -120 / -120 Weight 70.5 kg Intake: Oral 1440 / 1440 480 / 480 Output: Urine 600 / 600 Urine Amount (Catheter) 2250 / 2250 Indwelling Urethral Catheter 2250 / 2250 Other: Date of Last Bowel Movement 07/28/18 07/28/18 07/31/18 Narrative: GENERAL: This is a well-nourished, well-developed patient, in no apparent distress. CARDIOVASCULAR: Normal rate and regular rhythm without murmurs, gallops, or rubs. RESPIRATORY: Good respiratory efforts. Breath sounds equal and clear to auscultation bilaterally. GASTROINTESTINAL: Abdomen soft, non-tender, non-distended. Normal active bowel sounds MUSCULOSKELETAL:1+ bilateral lower extremity edema. NEURO: Alert & Oriented x4 to person, place, time, situation. Moves all ext x4 PSYCH: Appropriate mood and affect. Results Procedures completed during hospitalization: None Labs on day of discharge: Labs from last 24 hours 08/01/18 08/01/18 08/01/18 05:23 05:23 05:23 WBC 10.4 RBC 4.05 L Hgb 11.8 L Hct 36.0 L MCV 88.9 MCH 29.0 MCHC 32.7 RDW 16.2 Plt Count 155 MPV 8.8 Neut % (Auto) 90.2 H Lymph % (Auto) 5.1 L Nuckolls % (Auto) 4.4 Eos % (Auto) 0.0 Baso % (Auto) 0.3 Neut # (Auto) 9.4 H Lymph # (Auto) 0.5 L Nuckolls # (Auto) 0.5 Eos # (Auto) 0.0 Baso # (Auto) 0.0 WBC Differential . Differential Comment Auto diff final Sodium 141 Potassium 4.9 Chloride 109 H Carbon Dioxide 23.9 Anion Gap 8 BUN 66 H Creatinine 4.15 H Estimated GFR 17 L Random Glucose 151 H Calcium 8.1 L Phosphorus 4.6 Albumin 3.0 L Albumin (PEP) Albumin/Globulin Ratio Yphlz-8-Rkebbfgld Usdes-7-Eyclpbjsa Beta Globulins Gamma Globulins Ur 24 Hour Volume Ur Total Protein 24 Hr Urine PEP Interpret Double Strand DNA Ab Pending 07/31/18 07/30/18 22:19 19:59 WBC RBC Hgb Hct MCV MCH MCHC RDW Plt Count MPV Neut % (Auto) Lymph % (Auto) Nuckolls % (Auto) Eos % (Auto) Baso % (Auto) Neut # (Auto) Lymph # (Auto) Nuckolls # (Auto) Eos # (Auto) Baso # (Auto) WBC Differential Differential Comment Sodium Potassium Chloride Carbon Dioxide Anion Gap BUN Creatinine Estimated GFR Random Glucose Calcium Phosphorus Albumin Albumin (PEP) 4.50 Albumin/Globulin Ratio 1.55 Pxirb-0-Mafkvvkmf 0.16 Xhcld-4-Wzshxutob 0.81 Beta Globulins 0.62 Gamma Globulins 1.30 Ur 24 Hour Volume 3070 Ur Total Protein 24 Hr 706 H Urine PEP Interpret Pending Double Strand DNA Ab Preliminary micro results at discharge 07/29/18 19:00 Aerobic Blood Culture - Preliminary Blood - Peripheral No growth in 3 days Anaerobic Blood Culture - Preliminary No growth in 3 days 07/29/18 19:00 Aerobic Blood Culture - Preliminary Blood - Peripheral No growth in 3 days Anaerobic Blood Culture - Preliminary No growth in 3 days - Impressions ITS Impressions Chest X-Ray 07/29/18 18:56 CONCLUSION: Cardiomegaly with diffuse prominence of interstitium which may represent pulmonary edema. Alveolar density in the right medial base representing some superimposed edema or consolidation/infection. Venous Doppler Study 07/29/18 22:39 CONCLUSION: No DVT. Discharge Plan - Discharge Disposition Patient Disposition: 01 Discharge Home - Discharge Condition Condition: Good - Discharge Order Discharge Orders: Discharge Order (Routine); Ordered 08/01/18 Ordered By: Imelda Meraz - Physicians Team Primary Care Provider: [facility] Attending Provider: Imelda Meraz Other Providers: Sandor Cuevas MD
[2018-08-01 12:08] VITALS: PULSE 91
== END 2018-08-01 11:49 | disposition home or self-care (01) ==
LOC: NEPC 18:45 → NEDA 21:03 → HCIS 23:50
PROVIDERS: ADMIT Family Medicine; ATTEND Family Medicine